=== PATIENT | male | born 1970 | race Caucasian/White ===

== ENCOUNTER 2022-05-07 07:26 | Day surgery (SDC) | payer OTHER, SELFPAY ==
--- NOTE | 2022-05-07 07:32 | H&P.OPEN ---
HPI - General HPI Narrative FREYA CRUZ, is a 52 M who presents for screening colonoscopy. Patient's never had a previous colonoscopy. Patient denies any family history of colon cancer. Patient's bowel moods daily denies any blood. Patient denies any chronic abdominal pain/nausea/vomiting/reflux. States he has had some abdominal pain 2 episodes 1 after the fair and 1 after having pizza. However he states he took a couple Prilosec and that improved after he was having pain for about a week. Patient states the pain may have little bit lower in the abdomen. Denies diarrhea with this. [facility] Medical History (Updated 05/02/22 @ 14:33 by Ella Isaac) Alcohol use Former smoker Gastric reflux Hyperlipidemia, unspecified Injury of head and neck Marijuana use Wears glasses Home Medications omeprazole 20 mg capsule,delayed release 20 mg PO DAILY 05/07/22 [History Last Taken Unknown] Allergy/AdvReac Type Severity Reaction Status Date / Time Penicillins Allergy PT UNSURE Verified 05/07/22 07:43 OF REACTION Family History (Updated 03/20/22 @ 12:59 by Belgica Flower) Mother CVA (cerebral vascular accident) Father Lung cancer Surgical History (Updated 05/02/22 @ 14:33 by Ella Isaac) No history of previous surgery Social History Smoking Status: Former smoker Past Medical/Surgical History Planned Operation Planned Operative Procedure/s: CSCOPE OA Previous Hospitalizations/Surgeries HX Hospitalizations: No Any Problems With Anesthesia: No You/Your Family Experience Fever (Hyperthermia) With Anes: No Cholinesterase deficiency: No Cardiovascular Hx Hypertension: No Respiratory Hx Sleep Apnea: No Hx Respiratory Tract Infection/Cold (presently): No Do You Snore Loudly (louder than talking or can be heard): No Do You Often Feel Tired/ Fatigued/ Sleepy Dring Daytime?: No Has Anyone Observed You Stop Breathing During Sleep?: No Result (for STOP score): Negative Smoking Status: Former smoker Neurological Does patient have nerve stimulator: No Reproduction : No Allergies Penicillins Allergy (Verified 05/07/22 07:43) PT UNSURE OF REACTION Discharge Is Pt Admitted From a Usp, or a Longterm: No After D/C, Where Do you Plan to Go: Return Home Physical Exam Const alert, oriented x3 and no apparent distress HEENT normocephalic and head/scalp atraumatic Resp normal respiratory effort Cardio regular rate GI soft to palpation and non-tender; Negative for non-distended Palpation: Negative for guarding Extremity no clubbing, cyanosis or edema Neuro CN's II-XII intact bilaterally Psych mental status grossly normal Assessment & Plan Assessment/Plan (1) Encounter for screening for malignant neoplasm of colon: Surgery Risks - Colonoscopy Risks Include but are not Limited To: Risks include but are not limited to: Bleeding, perforation requiring further surgery, inability to complete colonoscopy requiring barium enema.
[2022-05-07] MEDS: Lactated Ringers 1,000 ML 15 ML IV (07:35)
[2022-05-07 07:51] VITALS: BP 159/96; PULSE 95; RESP 18; TEMP 36.8; O2SAT 99; BMI 22.8
--- NOTE | 2022-05-07 08:45 | COLBX_PTH ---
PATIENT: FREYA CRUZ LOC: [facility] U#:[id number] AGE/SX: 52/M ROOM: RE05/07/[address]: Dr. Sihra Echeverria MD : 1970 BED: DIS: 05/07/2022 SPEC #: [id number] RECD: 05/07/22 10:50 STATUS: FERCHO HOWARD #: [id number] SUJATA: 05/07/22 08:[address]: Shira Echeverria DEPT: SURGICAL PATHOLOGY RECD BY: Nano Weinstein ENTERED: 05/07/22 11:45 SP TYPE: COLON BX OT DR: Dr. Mago Kahn, DO Tissues: Rectum, NOS Procedures: Surgery Specimen Level IV HEADER OPERATION: Colonoscopy ? open access (MAC) PRE-OP DIAGNOSIS: Screening TISSUE SUBMITTED: Rectal polyp biopsy MICROSCOPIC DIAGNOSIS Rectal polyp, biopsy: Fragments of tubular adenoma. SJ:juanita 05/08/2022 MICROSCOPIC DESCRIPTION Slides are reviewed. GROSS DESCRIPTION Received in fixative is one container labeled with the patient's name and designated rectal polyp. The specimen consists of multiple irregular fragments of light vela soft tissue that in aggregate measure 0.7 x 0.6 x 0.1 cm. The specimen is totally submitted in one cassette. / AM:juanita 05/07/2022 TC:1 CPT: 43935
[2022-05-07 09:00] VITALS: BP 132/68; BP 159/96; PULSE 82; RESP 16; TEMP 36.2; O2SAT 100
[2022-05-07 09:05] VITALS: BP 159/96; BP 167/96; PULSE 80; RESP 16; O2SAT 100
--- NOTE | 2022-05-07 09:06 | OP.COLON_ITS ---
Patient Name: Александр Reyes Procedure Date: 05/07/2022 8:28 AM Date of : 1970 Age: 52 Procedure: Colonoscopy Indications: Screening for colorectal malignant neoplasm Providers: Shira Echeverria MD Referring MD: Shira Echeverria MD Medicines: Monitored Anesthesia Care Patient Profile: This is a 52 year old male. Last Colonoscopy: none. The patient's first colonoscopy is today. Complications: No immediate complications. Procedure: Pre-Anesthesia Assessment: - Prior to the procedure, a History and Physical was performed, and patient medications and allergies were reviewed. The patient's tolerance of previous anesthesia was also reviewed. The risks and benefits of the procedure and the sedation options and risks were discussed with the patient. All questions were answered, and informed consent was obtained. Prior Anticoagulants: The patient has taken no previous anticoagulant or antiplatelet agents. ASA Grade Assessment: Per anesthesia. After reviewing the risks and benefits, the patient was deemed in satisfactory condition to undergo the procedure. After I obtained informed consent, the scope was passed under direct vision. Throughout the procedure, the patient's blood pressure, pulse, and oxygen saturations were monitored continuously. The Colonoscope was introduced through the anus and advanced to the cecum, identified by appendiceal orifice and ileocecal valve. The colonoscopy was performed without difficulty. The patient tolerated the procedure well. The quality of the bowel preparation was good. Scope In: 8:34:38 AM Scope Withdrawal Time 0 hours 13 minutes 30 seconds Scope Out: 8:55:24 AM Total Procedure Duration Time 0 hours 20 minutes 46 seconds Findings: The perianal and digital rectal examinations were normal. Multiple small-mouthed diverticula were found in the sigmoid colon. A less than 5 mm polyp was found in the rectum. The polyp was sessile. The polyp was removed with a cold biopsy forceps. Resection and retrieval were complete. The exam was otherwise without abnormality on direct and retroflexion views. Impression: - Diverticulosis in the sigmoid colon. - One less than 5 mm polyp in the rectum, removed with a cold biopsy forceps. Resected and retrieved. - The examination was otherwise normal on direct and retroflexion views. Recommendation: - Discharge patient to home. - High fiber diet. - Continue present medications. - Await pathology results. - Repeat colonoscopy in 5-10 years for surveillance based on pathology results. Procedure Code(s): --- Professional --- 47355, PT, Colonoscopy, flexible; with biopsy, single or multiple Diagnosis Code(s): --- Professional --- Z12.11, Encounter for screening for malignant neoplasm of colon K62.1, Rectal polyp K57.30, Diverticulosis of large intestine without perforation or abscess without bleeding CPT copyright 2017 [employer]. All rights reserved. The codes documented in this report are preliminary and upon school age lead teacher review may be revised to meet current compliance requirements. MD Shira Ivey MD 05/07/2022 9:05:55 AM This report has been signed electronically. Number of Addenda: 0 Note Initiated On: 05/07/2022 8:28 AM
--- NOTE | 2022-05-07 09:08 | OP.CCLET_ITS ---
05/07/2022 Mago Kahn [address] [place] [address] Re : Colonoscopy procedure for Александр Reyes Dear Dr. Kahn This procedure was performed on Saturday, May 07, 2022. My impressions and recommendations are as follows: Impressions : - Diverticulosis in the sigmoid colon. - One less than 5 mm polyp in the rectum, removed with a cold biopsy forceps. Resected and retrieved. - The examination was otherwise normal on direct and retroflexion views. Recommendations : - Discharge patient to home. - High fiber diet. - Continue present medications. - Await pathology results. - Repeat colonoscopy in 5-10 years for surveillance based on pathology results. My findings are described in the full procedure note, which is enclosed. If I can be of further assistance, please feel free to contact me at Doctor phone number(s): , Work: . Sincerely, MD Shira Ivey MD 05/07/2022 9:05:55 AM This report has been signed electronically.
[2022-05-07 09:10] VITALS: BP 153/93; BP 159/96; PULSE 83; RESP 16; O2SAT 100
[2022-05-07 09:15] VITALS: BP 153/93; BP 159/96; PULSE 74; RESP 16; TEMP 36.4; O2SAT 100
[2022-05-07 09:37] VITALS: BP 159/96
== END 2022-05-07 09:39 | disposition home or self-care (01) ==
LOC: EN 07:28 → AC 07:30
PROVIDERS: PCP Internal Medicine; Referring Provider Surgery; Visit Provider Surgery
PROC: 0DJD8ZZ Inspection of Lower Intestinal Tract, Via Natural or Artificial Opening Endoscopic (ICD-10-PCS; CPT 45378; principal; 2022-05-07 08:40)
DX: Z12.11 Encounter for screening for malignant neoplasm of colon (principal); D12.8 Benign neoplasm of rectum; K57.30 Diverticulosis of large intestine without perforation or abscess without bleeding; E78.5 Hyperlipidemia, unspecified; K21.9 Gastro-esophageal reflux disease without esophagitis; F12.90 Cannabis use, unspecified, uncomplicated; Z79.899 Other long term (current) drug therapy; Z87.891 Personal history of nicotine dependence
CPT/HCPCS: 45380; 88305; J7120; J2405

== ENCOUNTER → 2022-09-05 | Outpatient (CLI) | payer OTHER, SELFPAY ==
[2022-09-05 07:46] LABS: Troponin-I HS 5 pg/mL (3.0-78.0)
== END | disposition home or self-care (01) ==
LOC: LABSPEC 07:11 → LAB 07:12
PROVIDERS: PCP Internal Medicine; Referring Provider Internal Medicine; Visit Provider Internal Medicine
DX: R07.89 Other chest pain (principal)
CPT/HCPCS: 36415; 84484

== ENCOUNTER → 2022-09-25 | Outpatient (CLI) | payer OTHER, SELFPAY ==
--- NOTE | 2022-09-25 06:56 | ECHOD_ITS ---
Reason For Study: CHEST PAIN Procedure This was a 2D Doppler, Color Flow transthoracic echocardiogram. Exam performed in department. Left Ventricle Normal LV size. The estimated ejection fraction is 65 %. No evidence for diastolic dysfunction. No regional wall motion abnormalities noted. Right Ventricle Normal RV size. Normal systolic function. Atria Normal left atrium. Normal right atrium. No doppler evidence for ASD. Mitral Valve There is no mitral valve stenosis. No mitral valve insufficiency. Tricuspid Valve There is no tricuspid stenosis. Unable to estimate RV systolic pressure due to inadequate jet, pulmonary artery pressure probably normal. Aortic Valve Trisinus/trileaflet aortic valve. There is no aortic stenosis. No aortic valve insufficiency. Pulmonic Valve There is no pulmonic valvular stenosis. No pulmonic valve insufficiency. Great Vessels Normal aortic root. Pericardium/Pleural No pericardial effusion. MMode/2D Measurements & Calculations LVIDd: 4.7 cm IVSd: 0.85 cm Ao root diam: 4.0 cm LVIDs: 3.0 cm LVPWd: 0.87 cm RVDd: 3.9 cm FS: 36.8 % LAV(MOD-bp): 35.8 ml LVAd ap4: 30.2 cm2 LVAd ap2: 28.5 cm2 LAV(MOD-bp) Indexed: 19.2 ml/m2 LVLd ap4: 8.3 cm LVLd ap2: 8.0 cm LAV(MOD-sp2): 32.4 ml EDV(MOD-sp4): 90.2 ml EDV(MOD-sp2): 84.3 ml LAV(MOD-sp4): 34.7 ml EDV(sp4-el): 93.6 ml EDV(sp2-el): 85.8 ml LVAs ap4: 18.1 cm2 LVAs ap2: 15.7 cm2 LVLs ap4: 6.9 cm LVLs ap2: 6.2 cm ESV(MOD-sp4): 40.9 ml ESV(MOD-sp2): 33.9 ml ESV(sp4-el): 40.5 ml ESV(sp2-el): 33.9 ml EF(MOD-sp4): 54.7 % EF(MOD-sp2): 59.8 % EF(sp4-el): 56.7 % SV(MOD-sp4): 49.3 ml SV(MOD-sp2): 50.4 ml SV(sp4-el): 53.0 ml LA dimension(2D): 4.3 cm LA A4 area: 13.3 cm2 RA A4 area: 13.4 cm2 Time Measurements MV dec time: 0.22 sec Doppler Measurements & Calculations MV E max leonard: 58.9 cm/sec Lat Peak E' Leonard: 7.3 cm/sec Med Peak E' Leonard: 9.3 cm/sec MV A max leonard: 67.1 cm/sec E/E' lat: 8.0 E/E' med: 6.3 MV E/A: 0.88 Ao V2 max: 101.9 cm/sec LV V1 max: 86.1 cm/sec PA V2 max: 81.9 cm/sec Ao max P.2 mmHg LV V1 max P.0 mmHg Ao V2 mean: 73.2 cm/sec LV V1 mean P.6 mmHg Ao mean P.4 mmHg LV V1 mean: 59.4 cm/sec Ao V2 VTI: 21.5 cm LV V1 VTI: 16.7 cm AV (velocity ratio): 0.78 TR max leonard: 224.9 cm/sec TR max P.2 mmHg ECHO/Echo Complete Interpretation Summary The estimated ejection fraction is 65 %. No evidence for diastolic dysfunction. Ordering Physician: Mago Kahn Referring Physician: Mago Kahn Performed By: Sherie Myles RDCS, RVT
--- NOTE | 2022-09-29 16:43 | STRESSREP ---
Stress Test Report Date: 09/25/2022 Procedure: Exercise tolerance test/imaging study Indications: Chest pain Consent: Per the patient Procedure: The patient exercised on a Tino protocol for 10 minutes achieving a peak heart rate of 166 bpm (98% predicted maximal heart rate) with a peak blood pressure 160/70 mmHg and a peak MET capacity of 13.4 METs. The baseline ECG demonstrated normal sinus rhythm. The peak exercise ECG demonstrated no significant ischemic changes. EKG during recovery revealed no significant ischemic changes [There were no cardiac dysrhythmias pretest, during exercise, or recovery]. The functional capacity was considered normal for age. There was [no complaint of chest discomfort during exercise or recovery]. The examination was discontinued secondary to achieving target heart rate, mild shortness of breath. Impression: 1. Technically adequate (percent predicted maximal heart rate greater than 85%) exercise tolerance test 2. Stress test is negative for exercise-induced EKG changes of ischemia 3. The test test is negative for exercise-induced chest pain 4. Functional capacity is normal for age 5. Nuclear images pending Myocardial perfusion imaging study: Technique: The patient was injected with 11 mCi of technetium 99m Cardiolite and subsequently rest SPECT Cardiolite nuclear imaging was obtained in the horizontal long, vertical long, and short axis views. The patient exercised on a Tino protocol. Please see above for details. The patient was injected with 31.9 mCi of technetium 99m Cardiolite and subsequently stress SPECT Cardiolite nuclear imaging was obtained in the horizontal long, vertical long, and short axis views. A gated Cardiolite study at peak stress was obtained. Interpretation: Rest and stress SPECT Cardiolite nuclear imaging status post realignment, normalization, and attenuation correction, demonstrates normal myocardial radioisotope uptake. The gated Cardiolite study demonstrates no significant regional wall motion abnormalities. The reported LVEF is 62%. Impression: 1. There is no evidence of significant ischemia or infarction. 2. The gated Cardiolite study reports an LVEF of 62%. This note was generated with [employer] software. It may contain incorrect words, spelling, and punctuation that were not noted in checking the note before signing.
== END | disposition home or self-care (01) ==
PROVIDERS: PCP Internal Medicine; Referring Provider Internal Medicine; Visit Provider Internal Medicine
DX: R07.89 Other chest pain (principal)
CPT/HCPCS: 78452; 93017; 93306; A9500; A4216

== ENCOUNTER 2023-02-03 13:10 | Observation (INO) | payer OTHER, SELFPAY ==
[2023-02-03] VITALS (9 sets, daily range): BP systolic 149–174; BP diastolic 83–102; PULSE 88–124; RESP 15–18; TEMP 36.7–37; O2SAT 96–99; BMI 22.8; BMI 21.7
--- NOTE | 2023-02-03 13:26 | NURSING ---
STROKE CALLED [id number]
--- NOTE | 2023-02-03 13:28 | RAD_ITS ---
STUDY: X-RAY CHEST REASON FOR EXAM: Male, 52 years old. Neuro deficit, acute, stroke suspected TECHNIQUE: Single AP portable view of the chest. COMPARISON: None. FINDINGS: EKG electrodes are seen. The lungs are clear and expanded. There is no demonstrated pleural abnormality. Normal size heart. Normal mediastinum and j luis. Normal visualized pulmonary arteries. Normal visualized aortic arch and descending thoracic aorta. Normal visualized thoracic spine. Normal visualized ribs, clavicles, and shoulders. There is no demonstrated abnormality of the visualized soft tissue structures of the upper abdomen. RAD/Chest 1 View IMPRESSION: Normal x-ray examination of the chest. Electronically Signed: Jasiel Davenport MD at 14:25 EDT ,
--- NOTE | 2023-02-03 13:28 | CT_ITS ---
STUDY: CTA HEAD AND NECK WITH CONTRAST REASON FOR EXAM: Male, 52 years old. Neuro deficit, acute, stroke suspected RADIATION DOSAGE (If Supplied By Facility): CTDIvol = ( 22.00 ) mGy, DLP = ( 810.15 ) mGycm TECHNIQUE: CT angiography was performed with a multi-detector CT scanner. Data acquisition was obtained from the skull base through the vertex following intravenous administration of IV 100mL Isovue-370. MIP images were reconstructed from the axial data set. Post-processing of the angiographic images was performed, with multiplanar reformation and 3D reconstruction. Individualized dose optimization techniques were used for this CT. COMPARISON: No relevant priors. FINDINGS: Normal bilateral petrous carotid arteries. There is calcified plaque formation of the right cavernous carotid artery, without a cross-sectional luminal stenosis. There is calcified plaque formation of the left cavernous carotid artery, without a cross-sectional luminal stenosis. Normal right A1 segments of the anterior cerebral artery. Normal left A1 segments of the anterior cerebral artery. Normal intact anterior communicating artery (ACOM). Normal bilateral A2 segments of the anterior cerebral arteries. Normal right M1 and M2 segments of the middle cerebral arteries, with a normal M1 bifurcation. Normal left M1 and M2 segments of the middle cerebral arteries, with a normal M1 bifurcation. Normal right posterior communicating artery (PCOM). Normal left posterior communicating artery (PCOM). Normal bilateral vertebral arteries. Normal basilar artery with a normal basilar bifurcation. The visualized bilateral superior cerebellar (SCA) arteries are normal. Normal bilateral P1, P2 and visualized P3 segments of the posterior cerebral arteries. There is no demonstrated aneurysm of the [place] of [place]. There is no demonstrated abnormality of the visualized brain. AORTIC ARCH: There is atherosclerotic calcific plaque formation of the aortic arch and great vessels arising from the aortic arch, without a hemodynamically significant stenosis. There is a normal origin of the brachiocephalic, left common carotid, and left subclavian arteries. Nonstenotic calcific plaque at the origin of the left subclavian artery. RIGHT CAROTID ARTERIES: Normal right common carotid artery (CCA). Normal right common carotid bulb. There is mild atherosclerotic plaque formation of the origin of the right internal carotid artery with less than 50% cross sectional diameter stenosis. Normal visualized cervical portion of the right internal carotid artery. Normal origin of the right external carotid artery (ECA). LEFT CAROTID ARTERIES: Normal left common carotid artery (CCA). Normal left common carotid bulb. Normal origin of the left internal carotid (ICA) artery without a hemodynamically significant stenosis. Normal visualized cervical portion of the left internal carotid artery. Normal origin of the left external carotid artery (ECA). VERTEBRAL ARTERIES: Normal bilateral vertebral arteries. CT/STROKE CTA Head AND Neck W/Con IMPRESSION: Mild calcific plaque at the origin of the right internal carotid artery. N.B. : The above Results were Read Back by Jasiel Davenport MD to Dr Handy Tarango DO, and understanding confirmed on 02/03/2023 13:59:40 (ET). Electronically Signed: Jasiel Davenport MD at 14:01 EDT ,
--- NOTE | 2023-02-03 13:28 | CT_ITS ---
STUDY: CT HEAD STROKE PROTOCOL W/O CONTRAST INJECTION REASON FOR EXAM: Male, 52 years old. Neuro deficit, acute, stroke suspected RADIATION DOSAGE (If Supplied By Facility): CTDIvol = ( 44.99 ) mGy, DLP = ( 846.73 ) mGycm TECHNIQUE: Transaxial CT imaging of the brain was performed without administration of intravenous contrast material. Individualized dose optimization techniques were used for this CT. COMPARISON: No relevant priors. FINDINGS: Normal soft tissue structures. Normal calvarium. Normal size ventricles and extra-axial spaces for the patient''s age. Normal white matter tracts of the cerebral hemispheres. Normal basal ganglia and thalami. Normal brainstem. Normal cerebellum. There is no intracranial hemorrhage. There are no findings of an acute ischemic infarction. Minimal degree of mucosal thickening of the maxillary sinuses. ASPECT score: 10 CT/STROKE Brain/Head without Cont IMPRESSION: Normal unenhanced CT scan of the brain. N.B. : The above Results were Read Back by Jasiel Davenport MD to Gem Guerra and understanding confirmed on 02/03/2023 13:48:17 (ET). Electronically Signed: Jasiel Davenport MD at 13:49 EDT ,
--- NOTE | 2023-02-03 13:29 | EDS_ITS ---
HPI History of Present Illness Chief Complaint: Neuro S/Sx Detail of Chief Complaint: Paresthesias Informant: patient Narrative Narrative: Patient presents to the emergency department with complaint of paresthesia to the right side of the face and right arm that started approximately 10:30 AM today. Patient denies weakness. He does not have involvement of the right lower extremity. He denies visual changes. Patient states that he has had similar episodes for the last 5 days off and on that usually only last a few minutes but this is the longest that it is lasted. Patient does drink alcohol daily. He tells me that he had a severe headache 2 weeks ago that lasted a couple weeks but currently denies headache. Denies significant fall or head injury. He is not on blood thinners. [facility] Medical History (Updated 02/03/23 @ 14:[address] Gem Guerra, ) Alcohol use Former smoker Gastric reflux Hyperlipidemia, unspecified Injury of head and neck Marijuana use Wears glasses Home Medications omeprazole 20 mg capsule,delayed release 20 mg PO DAILY PRN heartburn 05/07/22 [History Last Taken Unknown] Allergy/AdvReac Type Severity Reaction Status Date / Time Penicillins Allergy PT UNSURE Verified 02/03/23 14:30 OF REACTION Family History (Updated 03/20/22 @ 12:59 by Belgica Flower) Mother CVA (cerebral vascular accident) Father Lung cancer Surgical History No history of previous surgery Social History Smoking Status: Former smoker ROS ROS ED Review of Systems ROS Unobtainable: other Constitutional Constitutional ED: Reports lethargy; Denies chills, fever(s), sweats or weight loss Eyes Eyes: Denies blurry vision, change in vision or diplopia ENT ENT ED: Denies rhinorrhea or sore throat Cardiovascular Cardiovascular: Denies chest pain, orthopnea or racing heartbeat Respiratory/Chest Respiratory/Chest: Denies cough, dyspnea, dyspnea on exertion, orthopnea or sputum Gastrointestinal Gastrointestinal: Denies abdominal pain, diarrhea, nausea or vomiting Genitourinary Genitourinary ED: Denies dysuria, hematuria or urinary frequency Musculoskeletal Musculoskeletal: Denies arthralgias, back pain, myalgias or neck pain Integumentary Denies abscess, Abrasions or rash Neurologic Neurologic: Reports paresthesias; Denies headache(s) or weakness Psychiatric Psychiatric: Denies anxiety, depression or suicidal thoughts Endocrine Endocrinology: Denies polydipsia, polyphagia or polyuria Hematologic/Lymphatic Hematologic/Lymphatic: Denies easy bleeding, easy bruising or lymphadenopathy Allergic/Immunologic Allergic/Immunologic ED: Denies mouth swelling, tongue swelling or urticaria EXAM Physical Exam Const Vital Signs: 02/03/23 13:11 02/03/23 13:17 02/03/23 13:35 Temperature 98.5 F Temperature Source Temporal Pulse Rate 124 H 120 H Respiratory Rate 18 18 Blood Pressure 164/102 H 167/99 H Blood Pressure Mean 122 121 Pulse Ox 98 98 Oxygen Delivery Method Room Air Room Air Room Air 02/03/23 13:58 02/03/23 14:13 Temperature 98.5 F Temperature Source Temporal Pulse Rate 105 H 105 H Respiratory Rate 15 17 Blood Pressure 167/91 H 149/93 H Blood Pressure Mean 116 111 Pulse Ox 98 97 Oxygen Delivery Method Room Air Room Air Positive well nourished and well developed General Appearance ED: well developed and NAD HEENT Reports TM's clear and moist mucous membranes normocephalic and atraumatic; Negative for trauma or tenderness Tympanic Membrane ED: Yes TM's clear Eyes PERRL and EOMs intact bilaterally General Eye ED: Negative for pale conjunctiva or scleral icterus Neck no lymphadenopathy, supple and no JVD General: Negative for tenderness Chest Wall inspection of chest normal and palpation of chest normal Chest: Negative for tenderness Resp normal respiratory effort and clear to auscultation bilaterally Effort and Inspection: Negative for respiratory distress or pain with movement Auscultation: Negative for rhonchi, wheezes or diminished lung sounds Cardio regular rate, regular rhythm, S1 normal heart sound, S2 normal heart sound and no murmurs Peripheral Pulses: pulses 2+ throughout GI normal to inspection, nondistended, normoactive bowel sounds, soft to palpation, non-tender, non-distended and no masses Back/Spine no CVA tenderness and no thoracic nor lumbar tenderness Extremity normal to inspection General Extremety ED: Negative for edema General Extremity: Negative for edema Neuro oriented x3, CN's II-XII intact bilaterally, no sensory deficits noted and gait normal Neuro Narrative: Patient with paresthesias to the right arm and face and an NIH stroke scale of 1. There is no focal weakness. There is no facial droop. Sensorium / Orientation: awake, alert, oriented to person, oriented to place and oriented to time Motor Exam: strength 5/5 throughout and strength abnormal Psych mental status grossly normal Skin no rashes or lesions noted and no wounds MDM MDM MDM Narrative Medical decision making narrative: Patient presents with paresthesias involving the right face and right arm. Concern for possible stroke. Patient's had similar paresthesias over the course of the last 5 days have been short-lived. He is also recently had severe headache. Concern for stroke versus complex migraine versus intracranial hemorrhage versus electrolyte abnormality or other etiology. Stroke team was called. Patient was evaluated by stroke neurologist and on their evaluation his paresthesias of his arm had resolved but now was having return of the paresthesias to his face. Recommended discussing with patient giving thrombolytics for stroke. I discussed this with the patient and his the fact that the symptoms are coming and going could possibly be indicative of a stroke however an MRI would be a better test to definitively evaluate. Patient understands risk of bleeding relating to giving thrombolytics 6% potentially that could be fatal. Given that he has waxing and waning of paresthesias sherri ent did not want to proceed with thrombolytics and we shared medical decision making regarding this with his and myself. Patient sodium was noted to be low at 128. Chemistries otherwise were unremarkable. Case will be discussed with hospitalist to evaluate patient for admission as he will require further workup including MRI of the brain. Patient CTA of head and neck essentially showed just mild plaque formation at the origin of the right internal carotid artery. Lab Data Labs: Laboratory Results - last 24 hr 02/03/23 13:25 WBC 5.4 RBC 4.45 L Hgb 14.2 Hct 39.2 L MCV 88.1 MCH 31.9 MCHC 36.2 H RDW Std Deviation 38.2 RDW Coeff of [place] 11.8 Plt Count 363 MPV 7.8 Immature Gran % (Auto) 0.200 Neut % (Auto) 67.8 Lymph % (Auto) 20.9 [place] % (Auto) 9.3 Eos % (Auto) 1.1 Baso % (Auto) 0.7 Absolute Neuts (auto) 3.6 Absolute Lymphs (auto) 1.12 Nucleated RBC % 0 PT 13.8 INR 1.1 APTT 26.1 Sodium 128 L Potassium 4.2 Chloride 93 L Carbon Dioxide 27.0 Anion Gap 8 BUN 5 L Creatinine 0.90 Estim Creat Clear Calc 96.50 Est GFR (MDRD) Af Amer 113 Est GFR (MDRD) Non-Af 94 BUN/Creatinine Ratio 5.5 L Glucose 168 H Calcium 9.0 Troponin I High Sens 4 Ethyl Alcohol < 3.0 Radiography Diagnostic Testing: Clinical Impression(s) from Imaging Studies Brain CT 02/03/23 13:28 IMPRESSION: Normal unenhanced CT scan of the brain. N.B. : The above Results were Read Back by Jasiel Davenport MD to Gem Guerra and understanding confirmed on 02/03/2023 13:48:17 (ET). Electronically Signed: Jasiel Davenport MD at 13:49 EDT , ADDENDUM: 02/03/23 1356 IMPRESSION: Normal unenhanced CT scan of the brain. N.B. : The above Results were Read Back by Jasiel Davenport MD to Gem Guerra and understanding confirmed on 02/03/2023 13:48:17 (ET). Electronically Signed: Jasiel Davenport MD at 13:49 EDT , Chest X-Ray 02/03/23 13:28 IMPRESSION: Normal x-ray examination of the chest. Electronically Signed: Jasiel Davenoprt MD at 14:25 EDT , Head/Neck CTA 02/03/23 13:28 IMPRESSION: Mild calcific plaque at the origin of the right internal carotid artery. N.B. : The above Results were Read Back by Jasiel Davenport MD to Dr Handy Tarango DO, and understanding confirmed on 02/03/2023 13:59:40 (ET). Electronically Signed: Jasiel Davenport MD at 14:01 EDT , ADDENDUM: 02/03/23 1407 IMPRESSION: Mild calcific plaque at the origin of the right internal carotid artery. N.B. : The above Results were Read Back by Jasiel Davenport MD to Dr Handy Tarango DO, and understanding confirmed on 02/03/2023 13:59:40 (ET). Electronically Signed: Jasiel Davenport MD at 14:01 EDT , 1 view chest x-ray obtained interpreted by myself as no evidence of infiltrate or pneumothorax or acute disease process. Radiology interpretation pending. EKG Initial EKG: Attestation: I personally reviewed and interpreted this EKG as follows: Comments: Sinus rhythm with a rate of 118 bpm with no acute ST segment changes Discharge Plan Dx/Rx/DC Orders Clinical Impression: Paresthesias, Tachycardia, Hypertension, Acute hyponatremia Disposition Disposition: Acute Care Hospital [facility] Discharge Date/Time: 02/03/23 14:40
[2023-02-03 13:37] LABS: Absolute Lymphocyte Count 1.12 X10^3/uL (0.83-4.51); Absolute Neutrophil Count 3.6 X10^3/uL (2.0-7.7); Basophil# 0.04 X10^3/uL; Basophil% 0.7 % (0-1); Eosinophil# 0.06 X10^3/uL; Eosinophils% 1.1 % (0-5); Hematocrit 39.2 % (40-54); Hemoglobin 14.2 g/dL (13.0-16.5); Lymphocyte # 1.12 X10^3/ul (0.83-4.51); Lymphocyte % 20.9 % (19-41); Mean Corp Hgb Conc 36.2 g/dL (32-36); Mean Corpuscular Hgb 31.9 pg (27.0-32.0); Mean Corpuscular Volume 88.1 fL (80-94); Mean Platelet Vol. 7.8 fl (6.2-12.0); Monocyte% 9.3 % (0-10); NRBC Flagged by Analyzer 0 % (0-5); Neutrophil # 3.63 X10^3/uL (2.7-7.7); Neutrophil % 67.8 % (47-70); Platelet Count 363 K/mm3 (150-450); RBC Distribution Width CV 11.8 % (11.6-14.6); RBC Distribution Width SD 38.2 fl (35.1-43.9); Red Blood Count 4.45 M/mm3 (4.6-6.2); White Blood Count 5.4 K/mm3 (4.4-11.0)
[2023-02-03 13:43] LABS: Partial Thromboplast Time 26.1 Seconds (24.1-36.2)
[2023-02-03] MEDS: 0.9% Normal Saline 1,000 ML 100 ML IV (13:45)
[2023-02-03 13:57] LABS: Anion Gap 8 (5-15); BUN 5 mg/dL (7-18); BUN/Creat Ratio 5.5 RATIO (10-20); Chloride 93 mmol/L (98-107); EST Glomerular Filtration Rate 94 mL/min (>60); Est Glom Filt Rate - Afr Amer 113 mL/min (>60); Glucose 168 mg/dL (74-106); Potassium 4.2 mmol/L (3.5-5.1); Sodium Level 128 mmol/L (136-145); Troponin-I HS 4 pg/mL (3.0-78.0)
[2023-02-03 14:00] LABS: Alcohol, Blood (Medical)-Serum < 3.0 mg/dL
--- NOTE | 2023-02-03 14:22 | CHAPLAIN ---
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 _x__ Other (describe below) Sacrament/Intervention _x__ Active listening ___ Anointing ___ Religion ___ Bereavement ___ Communion ___ Francoise exploration ___ ___ Life review ___ Prayer ___ Reconciliation ___ Sacrament of Sick _x__ Supportive presence ___ Wedding ___ Other (describe below) Pastoral Comments patient was in [place]; met with in the ED after the stroke alert was called; offered support and presence to spouse; spouse talks about losing her father just a couple days ago and the stress involved in the family; pt had not wanted to seek medical attention due to family issues but came in today; spouse is talking rapidly and explaining situation; gave calm presence and reassurance of good care; was present when patient returned to room; introduced self to pt and offered presence; pt is able to talk and state that he is fine at the moment; will follow up as necessary and will continue to be available
--- NOTE | 2023-02-03 14:24 | NURSING ---
114 OBS TERELETSKY PARESTHESIAS, HYPERTENSION, TACHYCARDIA
[2023-02-03 14:27] LABS: International Normalized Ratio 1.1; Prothrombin Time (Protime)PT. 13.8 SECONDS (11.7-14.9)
--- NOTE | 2023-02-03 15:16 | HP.PCM.HOS_ITS ---
HPI - General General Date of Admission: 02/03/23 Date of Service: 02/03/23 Chief Complaint: Right arm paresthesias, right facial paresthesias HPI Narrative FREYA CRUZ, is a 52 M who presents to the emergency room at [facility] with a history of several days of right facial numbness and tingling as well as right arm and right hand numbness and tingling which has waxed and waned. These episodes only lasted for few minutes and then they went away, today the symptoms have lasted for few hours. Patient denied any actual focal weakness, he denies any speech or vision abnormalities, he denies any right lower extremity tingling or numbness. A stroke team was called, patient underwent a CTA of the head and neck as well as a CT of the brain, there were no significant abnormalities detected, the patient's NIH score was 1. Discussions were carried out with teleneurology as to whether to give the patient tPA and it was decided that tPA was not indicated-patient did not feel that he wanted and the emergency room physician did not feel it was warranted and so the decision was made not to give it. Labs were obtained which showed a normal CBC, chemistry profile was abnormal for sodium of 128, chloride was 93, glucose was 168. Patient will be placed into observation status on PCU, MRI of the brain will be obtained, patient will be seen by PT and OT, echocardiogram will be obtained. Patient states that he intakes alcohol on a daily basis, he is vague about the amount of alcohol that he drinks-patient drinks beer-patient states he has never been through alcohol withdrawal or had any symptoms of alcohol withdrawal after refraining from drinking. I talked at length with the patient's who was in the room at the time my examination. [facility] Medical History (Updated 02/03/23 @ 14:[address] Gem Guerra, DO) Alcohol use Former smoker Gastric reflux Hyperlipidemia, unspecified Injury of head and neck Marijuana use Wears glasses Home Medications omeprazole 20 mg capsule,delayed release 20 mg PO DAILY PRN heartburn 05/07/22 [History Last Taken Unknown] Allergy/AdvReac Type Severity Reaction Status Date / Time Penicillins Allergy PT UNSURE Verified 02/03/23 14:30 OF REACTION Family History (Updated 03/20/22 @ 12:59 by Belgica Flower) Mother CVA (cerebral vascular accident) Father Lung cancer Surgical History No history of previous surgery Social History Smoking Status: Former smoker ROS Constitutional Constitutional: Denies anorexia, change in weight, chills, fatigue, fever(s), malaise, night sweats or weakness Eyes Eyes: Denies blurry vision, change in vision, discharge from eye(s) or eye pain Cardiovascular Cardiovascular: Denies chest pain, claudication, dyspnea on exertion, edema, lightheadedness or palpitations Respiratory/Chest Respiratory/Chest: Denies cough, hemoptysis, shortness of breath at rest or shortness of breath with exertion Gastrointestinal Gastrointestinal: Denies abdominal pain, constipation, diarrhea, hematemesis, hematochezia, melena, nausea or vomiting Genitourinary Genitourinary: Denies difficulty urinating, dysuria, hematuria, nocturia, urinary frequency, urinary hesitancy, urinary incontinence or urinary urgency Musculoskeletal Musculoskeletal: Denies back pain, joint pain, joint stiffness, joint swelling, myalgias or neck pain Neurologic Neurologic: Reports numbness, paresthesias and tingling; Denies abnormal gait, abnormal speech, dizziness, focal weakness, headache(s), loss of vision, other visual disturbances or syncope Psychiatric Psychiatric: Denies anxiety, cognitive impairment, depression, homicidal ideation, irritability, mood swings or suicidal ideation Endocrine Endocrinology: Denies change in body appearance, cold intolerance, excessive sweating, heat intolerance, polydipsia or polyuria Hematologic/Lymphatic Hematologic/Lymphatic: Denies none, anemia, easy bleeding, easy bruising or lymphadenopathy Allergic/Immunologic Allergic/Immunologic: Denies rhinitis, urticaria, eczemia or asthma Vital Signs Vital Signs Vital Signs: 02/03/23 13:11 02/03/23 13:17 02/03/23 13:35 Temperature 98.5 F Temperature Source Temporal Pulse Rate 124 H 120 H Respiratory Rate 18 18 Blood Pressure 164/102 H 167/99 H Blood Pressure Mean 122 121 Pulse Ox 98 98 Oxygen Delivery Method Room Air Room Air Room Air 02/03/23 13:58 02/03/23 14:13 Temperature 98.5 F Temperature Source Temporal Pulse Rate 105 H 105 H Respiratory Rate 15 17 Blood Pressure 167/91 H 149/93 H Blood Pressure Mean 116 111 Pulse Ox 98 97 Oxygen Delivery Method Room Air Room Air Weight Weight: 70.261 kg Body Mass Index (BMI) 22.8 Physical Exam Const alert, oriented x3, no apparent distress, average body habitus and healthy appearing General Appearance: cooperative, well kempt and well developed Orientation / Consciousness: awake, oriented to person, oriented to place and oriented to time HEENT normocephalic, head/scalp atraumatic, hearing grossly normal bilaterally and moist oral mucous membranes Eyes PERRL, EOMs intact bilaterally and conjunctivae normal Neck supple, no JVD, thyroid normal and no carotid bruits General: trachea midline Resp normal respiratory effort, no retractions, no use of accessory muscles and clear to auscultation bilaterally Auscultation: Negative for rales, rhonchi or wheezes Cardio regular rate, regular rhythm, S1 normal heart sound, S2 normal heart sound, no murmurs, no rub and no gallops GI normal to inspection, nondistended, normoactive bowel sounds, soft to palpation, non-tender and non-distended Extremity no clubbing, cyanosis or edema Skin no rashes or lesions noted General Skin Exam: no breakdown Neuro oriented x3, CN's II-XII intact bilaterally, moves all extremities, no focal motor deficits and no sensory deficits noted Sensorium / Orientation: awake and alert Speech: speech normal Psych affect normal Results Lab / Micro Data 02/03/23 13:25 02/03/23 13:25 Labs: Laboratory Results - last 24 hr 02/03/23 13:25: WBC 5.4, RBC 4.45 L, Hgb 14.2, Hct 39.2 L, MCV 88.1, MCH 31.9, MCHC 36.2 H, RDW Std Deviation 38.2, RDW Coeff of [place] 11.8, Plt Count 363, MPV 7.8, Immature Gran % (Auto) 0.200, Neut % (Auto) 67.8, Lymph % (Auto) 20.9, [place] % (Auto) 9.3, Eos % (Auto) 1.1, Baso % (Auto) 0.7, Absolute Neuts (auto) 3.6, Absolute Lymphs (auto) 1.12, Nucleated RBC % 0, PT 13.8, INR 1.1, APTT 26.1, Sodium 128 L, Potassium 4.2, Chloride 93 L, Carbon Dioxide 27.0, Anion Gap 8, BUN 5 L, Creatinine 0.90, Estim Creat Clear Calc 96.50, Est GFR (MDRD) Af Amer 113, Est GFR (MDRD) Non-Af 94, BUN/Creatinine Ratio 5.5 L, Glucose 168 H, Calcium 9.0, Troponin I High Sens 4, Ethyl Alcohol < 3.[address] 02/03/23 13:28 IMPRESSION: Normal unenhanced CT scan of the brain. N.B. : The above Results were Read Back by Jasiel Davenport MD to Gem Guerra and understanding confirmed on 02/03/2023 13:48:17 (ET). Electronically Signed: Jasiel Davenport MD at 13:49 EDT , ADDENDUM: 02/03/23 1356 IMPRESSION: Normal unenhanced CT scan of the brain. N.B. : The above Results were Read Back by Jasiel Davenport MD to Gem Guerra and understanding confirmed on 02/03/2023 13:48:17 (ET). Electronically Signed: Jasiel Davenport MD at 13:49 EDT , Chest X-Ray 02/03/23 13:28 IMPRESSION: Normal x-ray examination of the chest. Electronically Signed: Jasiel Davenport MD at 14:25 EDT , Head/Neck CTA 02/03/23 13:28 IMPRESSION: Mild calcific plaque at the origin of the right internal carotid artery. N.B. : The above Results were Read Back by Jasiel Davenport MD to Dr Handy Tarango DO, and understanding confirmed on 02/03/2023 13:59:40 (ET). Electronically Signed: Jasiel Davenport MD at 14:01 EDT , ADDENDUM: 02/03/23 1407 IMPRESSION: Mild calcific plaque at the origin of the right internal carotid artery. N.B. : The above Results were Read Back by Jasiel Davenport MD to Dr Handy Tarango DO, and understanding confirmed on 02/03/2023 13:59:40 (ET). Electronically Signed: Jasiel Davenport MD at 14:01 EDT , Assessment & Plan Assessment/Plan (1) Paresthesias: PLAN: Plan 1. Paresthesias of the right arm and right side of face-etiology unclear, patient states his right arm tingling and numbness for the most part has resolved at this point. Patient was placed in observation status on PCU, he will undergo an MRI, echocardiogram will be performed, patient will have a lipid profile ordered, he will be seen by PT and OT. #2 hyponatremia-etiology unclear, it is possible it could be from excessive beer drinking, BMP will be rechecked tomorrow #3 essential hypertension-patient states that he has a history of hypertension but was not placed on any medications, patient's blood pressure will be monitored, I choose at this time not to place the patient on any blood pressure medications #4 Daily alcohol intake-at this point the patient's and the patient are vague about the amount of alcohol the patient drinks but he does drink on a daily basis. Patient does not feel he needs as needed medication for anxiety or nervousness. Total clinical time spent by myself addressing the patient's medical issues, reviewing all of his data, and collaborating with patient's care team: 55 minutes Charges/Coding Visit Charges Inpatient E&M: 16093 Init Hosp L2
--- NOTE | 2023-02-03 15:37 | MRI_ITS ---
STUDY: MRI BRAIN WITHOUT CONTRAST REASON FOR EXAM: Male, 52 years old. Right arm and facial paresthesias TECHNIQUE: Standardized multiplanar fat and water weighted pulse sequences were obtained. COMPARISON: CTA brain February 03, 2023 FINDINGS: Normal size of the ventricles and extra-axial spaces for the patient''s age. There are a limited number of small white matter hyperintensities, distributed throughout the deep white matter tracts of the cerebral hemispheres, consistent with mild chronic white matter ischemic changes. Normal bilateral basal ganglia. Normal thalami. There is no extra-axial fluid accumulation. Normal flow voids within the major intracranial circulation suggesting patency by spin echo criteria. Normal sella turcica, pituitary gland, infundibular stalk, optic chiasm and hypothalamus. Normal tectal plate and pineal gland. Normal midbrain, trung and medulla. Normal cerebellum. Normal basal cisterns. Normal bilateral temporal bones. Normal bilateral internal auditory canals. No demonstrated orbital abnormality, within the constraints of a routine brain study. Normal visualized paranasal sinuses. Normal calvarium and skull base. Normal visualized soft tissue structures. Normal visualized upper cervical spine. MRI/Brain without Contrast IMPRESSION: Normal unenhanced MRI of the brain. Electronically Signed: Darron Azul MD at 22:10 EDT ,
--- NOTE | 2023-02-03 16:15 | ECHOD_ITS ---
Reason For Study: TIA/CVA Procedure This was a 2D Doppler, Color Flow transthoracic echocardiogram. Exam performed portable in patient room. Left Ventricle Normal LV size. The estimated ejection fraction is 60 %. Normal diastology for age. No regional wall motion abnormalities noted. Right Ventricle Normal RV size. Normal systolic function. Atria Normal left atrium. Normal right atrium. No doppler evidence for ASD. Mitral Valve There is no mitral valve stenosis. No mitral valve insufficiency. Tricuspid Valve There is no tricuspid stenosis. Unable to estimate RV systolic pressure due to insufficient tricuspid regurgitant envelope. Trivial tricuspid valve insufficiency. Aortic Valve Trisinus/trileaflet aortic valve. There is no aortic stenosis. No aortic valve insufficiency. Pulmonic Valve There is no pulmonic valvular stenosis. No pulmonic valve insufficiency. Great Vessels Normal aortic root. Pericardium/Pleural No pericardial effusion. MMode/2D Measurements & Calculations LVIDd: 4.9 cm IVSd: 0.78 cm LAV(MOD-bp): 50.5 ml LVIDs: 3.4 cm LVPWd: 1.0 cm LAV(MOD-bp) Indexed: 28.6 ml/m2 RVDd: 3.5 cm FS: 30.6 % LAV(MOD-sp2): 56.3 ml LAV(MOD-sp4): 37.4 ml SV(MOD-sp4): 48.3 ml SV(sp4-el): 50.4 ml LVAd ap4: 29.7 cm2 LVLd ap4: 8.4 cm EDV(MOD-sp4): 85.8 ml EDV(sp4-el): 89.2 ml LVAs ap4: 17.8 cm2 LVLs ap4: 7.0 cm ESV(MOD-sp4): 37.5 ml ESV(sp4-el): 38.8 ml EF(MOD-sp4): 56.3 % EF(sp4-el): 56.5 % LA A4 area: 14.7 cm2 LA dimension(2D): 3.2 cm RA A4 area: 17.9 cm2 TAPSE: 2.4 cm Time Measurements MV dec time: 0.20 sec Doppler Measurements & Calculations MV E max leonard: 58.2 cm/sec Lat Peak E' Leonard: 12.2 cm/sec Med Peak E' Leonard: 11.1 cm/sec MV A max leonard: 61.3 cm/sec E/E' lat: 4.8 E/E' med: 5.2 MV E/A: 0.95 MV V2 max: 70.9 cm/sec Ao V2 max: 121.4 cm/sec MV max P.0 mmHg MV dec slope: 290.2 cm/sec2 Ao max P.0 mmHg MV V2 mean: 45.9 cm/sec Ao V2 mean: 79.6 cm/sec MV mean P.97 mmHg Ao mean P.9 mmHg MV V2 VTI: 17.2 cm Ao V2 VTI: 24.3 cm AV (velocity ratio): 0.78 LV V1 max: 95.0 cm/sec PA V2 max: 87.2 cm/sec LV V1 max P.6 mmHg PA V2 mean: 64.5 cm/sec LV V1 mean P.9 mmHg LV V1 mean: 65.2 cm/sec LV V1 VTI: 19.0 cm ECHO/Echo Complete Interpretation Summary The estimated ejection fraction is 60 %. Normal diastology for age. Ordering Physician: Alexei Collins Referring Physician: Mago Kahn M.D. Performed By: Deysi Witt RCS
[2023-02-03 18:41] LABS: Cholesterol 224 mg/dL (200); High Density Lipoprotein 71 mg/dL; Triglycerides 133 mg/dL; Very Low Density Lipoprotein 27 mg/dL (5-40)
[2023-02-04] VITALS: BP 159/94; PULSE 76; RESP 18; TEMP 36.6; O2SAT 98
[2023-02-04 01:39] VITALS: BMI 21.7
[2023-02-04 01:40] VITALS: BMI 21.7
[2023-02-04 04:00] VITALS: BP 155/96; PULSE 72; RESP 16; TEMP 36.6; O2SAT 98
[2023-02-04 07:05] LABS: Anion Gap 5 (5-15); BUN 7 mg/dL (7-18); Calcium,Total 8.9 mg/dL (8.5-10.1); Chloride 99 mmol/L (98-107); EST Glomerular Filtration Rate 126 mL/min (>60); Est Glom Filt Rate - Afr Amer 153 mL/min (>60); Estimated Creatinine Clearance 114.25 ml/min; Glucose 111 mg/dL (74-106); Potassium 3.6 mmol/L (3.5-5.1); Sodium Level 132 mmol/L (136-145)
[2023-02-04 07:42] VITALS: BP 145/96; PULSE 67; RESP 18; TEMP 36.9; O2SAT 97
[2023-02-04] MEDS: Aspirin E.C. 81 MG Tablet PO (08:25)
--- NOTE | 2023-02-04 12:50 | PCM.DC.SUM ---
Providers Date of Admission: 02/03/23 Date of Discharge: 02/04/23 Primary Care Physician: Dr. Mago Kahn DO Reason For Visit: RIGHT ARM/HAND AND FACIAL PARASTHESIAS Diagnosis Discharge Diagnosis (1) Paresthesias: Status: Acute Code(s): R20.2 - Paresthesia of skin Medications at Discharge Home Medications omeprazole 20 mg capsule,delayed release 20 mg PO DAILY PRN heartburn 05/07/22 amlodipine 10 mg tablet 10 mg PO DAILY #30 tabs 02/04/23 aspirin 81 mg chewable tablet 81 mg PO DAILY #30 tabs 02/04/23 atorvastatin 40 mg tablet 40 mg PO DAILY #30 tabs 02/04/23 clopidogrel 75 mg tablet (Plavix) 75 mg PO DAILY #21 tabs 02/04/23 Hospital Course Operations None Procedures 2-D Echocardiogram Summary of Care Provided Minutes Spent on Discharge: 55 Hospital Course: Patient is a 52-year-old male with past medical history as outlined was admitted through the ED on 02/03/2023 with a complaint of right arm numbness and tingling as well as right facial numbness and tingling. He had been going on for about 4 days prior to admission. It waxed and waned but suddenly started persistent for longer periods. It lasted for several hours on the day of admission. He denied any focal weakness or speech or vision abnormalities or any difficulty with swallowing. He denied any similar symptoms in his lower extremities. Review of systems otherwise negative. NIH stroke scale was 1 in the ED. [facility] telestroke neurology reviewed patient's and did not think that he was a candidate for tPA so he did not receive tPA. He was admitted to rule out a stroke. CT of the brain was negative for any acute intracranial pathology. MRI of the brain also showed no evidence of a stroke. His symptoms resolved during admission and did not recur. He was therefore diagnosed with TIA. Neurology was consulted and agreed with the diagnosis of TIA. Per neurology, to put patient on aspirin and Plavix for 3 weeks and to continue with aspirin monotherapy. Patient was given a loading dose of Plavix 300 mg x 1. He was also placed on atorvastatin 40 mg nightly. His LDL was increased at 126 with total cholesterol of 224. Recommendation was therefore for patient to be on the high intensity statin for target LDL of less than 70. Neurology also recommended a 30-day event monitor and this was ordered to evaluate for any evidence of arrhythmia. He had a 2D echo which showed EF of 60% with normal diastolic for age. He had had an echo in August 2022 which also showed negative bubble study. He was discharged home on 02/04/2023 on p.o. aspirin 81 mg daily, p.o. Plavix 75 mg daily for 3 weeks as well as p.o. atorvastatin. He is follow-up with his primary care doctor and follow-up with neurology on outpatient basis as well. Patient seen and examined prior to discharge. is by his bedside. He had no active complaints and had an uneventful night. Review of systems otherwise negative. Labs and vitals reviewed. Home medication reviewed and reconciled. Physical Exam Const alert, oriented x3 and no apparent distress General Appearance: cooperative, comfortable and well developed Orientation / Consciousness: awake Exam Limitations: no limitations HEENT normocephalic, head/scalp atraumatic, hearing grossly normal bilaterally and moist oral mucous membranes Mouth: oral and palatal mucosa normal Eyes PERRL, EOMs intact bilaterally and conjunctivae normal Neck no lymphadenopathy and supple Resp normal respiratory effort, no retractions, no use of accessory muscles and clear to auscultation bilaterally Cardio regular rate, regular rhythm, S1 normal heart sound, S2 normal heart sound and no murmurs GI normal to inspection, nondistended, normoactive bowel sounds, soft to palpation, non-tender and non-distended Extremity normal to inspection, full ROM and no clubbing, cyanosis or edema Skin no rashes or lesions noted, no wounds, skin turgor normal and no jaundice Neuro oriented x3, CN's II-XII intact bilaterally, moves all extremities, no focal motor deficits and no sensory deficits noted Sensorium / Orientation: awake Motor Exam: strength 5/5 throughout Psych affect normal Weight / BMI Weight Weight: 142 lb 10.225 oz Body Mass Index (BMI) 21.7 ABG / Lab / Microbiology Data 02/03/23 13:25 02/04/23 05:37 Laboratory: Laboratory Results - last 24 hr 02/03/23 13:25: WBC 5.4, RBC 4.45 L, Hgb 14.2, Hct 39.2 L, MCV 88.1, MCH 31.9, MCHC 36.2 H, RDW Std Deviation 38.2, RDW Coeff of [place] 11.8, Plt Count 363, MPV 7.8, Immature Gran % (Auto) 0.200, Neut % (Auto) 67.8, Lymph % (Auto) 20.9, [place] % (Auto) 9.3, Eos % (Auto) 1.1, Baso % (Auto) 0.7, Absolute Neuts (auto) 3.6, Absolute Lymphs (auto) 1.12, Nucleated RBC % 0, PT 13.8, INR 1.1, APTT 26.1, Sodium 128 L, Potassium 4.2, Chloride 93 L, Carbon Dioxide 27.0, Anion Gap 8, BUN 5 L, Creatinine 0.90, Estim Creat Clear Calc 96.50, Est GFR (MDRD) Af Amer 113, Est GFR (MDRD) Non-Af 94, BUN/Creatinine Ratio 5.5 L, Glucose 168 H, Calcium 9.0, Troponin I High Sens 4, Triglycerides 133, Cholesterol 224 H, LDL Cholesterol 126, VLDL Cholesterol 27, HDL Cholesterol 71, Ethyl Alcohol < 3.0 02/04/23 05:37: Sodium 132 L, Potassium 3.6, Chloride 99, Carbon Dioxide 28.0, Anion Gap 5, BUN 7, Creatinine 0.70, Estim Creat Clear Calc 114.25, Est GFR (MDRD) Af Amer 153, Est GFR (MDRD) Non-Af 126, BUN/Creatinine Ratio 10.0, Glucose 111 H, Calcium 8.9 Radiography Diagnostic Testing: Radiology Impression Brain CT 02/03/23 13:28 IMPRESSION: Normal unenhanced CT scan of the brain. N.B. : The above Results were Read Back by Jasiel Davenport MD to Gem Guerra and understanding confirmed on 02/03/2023 13:48:17 (ET). Electronically Signed: Jasiel Davenport MD at 13:49 EDT , ADDENDUM: 02/03/23 [id number] IMPRESSION: Normal unenhanced CT scan of the brain. N.B. : The above Results were Read Back by Jaisel Davenport MD to Gem Guerra and understanding confirmed on 02/03/2023 13:48:17 (ET). Electronically Signed: Jasiel Davenport MD at 13:49 EDT , Chest X-Ray 02/03/23 13:28 IMPRESSION: Normal x-ray examination of the chest. Electronically Signed: Jasiel Davenport MD at 14:25 EDT , Head/Neck CTA 02/03/23 13:28 IMPRESSION: Mild calcific plaque at the origin of the right internal carotid artery. N.B. : The above Results were Read Back by Jasiel Davenport MD to Dr Handy Tarango DO, and understanding confirmed on 02/03/2023 13:59:40 (ET). Electronically Signed: Jasiel Davenport MD at 14:01 EDT , ADDENDUM: 02/03/23 1407 IMPRESSION: Mild calcific plaque at the origin of the right internal carotid artery. N.B. : The above Results were Read Back by Jasiel Davenport MD to Dr Handy Tarango DO, and understanding confirmed on 02/03/2023 13:59:40 (ET). Electronically Signed: Jasiel Davenport MD at 14:01 EDT , Brain MRI 02/03/23 15:37 IMPRESSION: Normal unenhanced MRI of the brain. Electronically Signed: Darron Azul MD at 22:10 EDT Reading Location ID and State: [facility] / [place] , Service support , Echocardiogram 02/03/23 16:15 Interpretation Summary The estimated ejection fraction is 60 %. Normal diastology for age. Ordering Physician: Alexei Collins Referring Physician: Mago Kahn M.D. Performed By: Deysi Witt RCS D/C Instructions Discharge Diet: Low fat / Low cholesterol Discharge Activity: Return to Normal Activity Weight Bearing Status: Weight bearing as tolerated Call your doctor if you observe: Fever of 101 or Higher, Shortness of breath, Dizziness, Swelling in the ankles and Chest pain Meaningful Use Info Meaningful Use Diagnoses (Choose all that apply): None applicable Discharge Plan Admission Admit Date/Time: 02/03/23 15:32 Primary Reason for Your Visit: TIA Attending Provider: Rupa Roberts Primary Care Provider: Mago Kahn Consulting Providers: Alexei Collins Instructions Patient Instructions: TIA Dc Discharge Orders/Prescriptions Prescriptions: New aspirin 81 mg tablet,chewable 81 mg PO DAILY Qty: 30 3RF clopidogrel [Plavix] 75 mg tablet 75 mg PO DAILY Qty: 21 0RF atorvastatin 40 mg tablet 40 mg PO DAILY Qty: 30 2RF amlodipine 10 mg tablet 10 mg PO DAILY Qty: 30 2RF Continued omeprazole 20 mg Capsule,Delayed Release(Dr/Ec) 20 mg PO DAILY PRN (Reason: heartburn) Other Ambulatory Orders: 30 Day Event Recorder Preventi (Urgent) Timeframe: 1 Day Facility: [facility] - Location: Cardiovascular Services Ordered By: Dr. Rupa Roberts Referrals / Follow Up: Mago Kahn DO [Primary Care Provider] - Within 1 Week Josh Shirley MD [Non-Staff -Ordering Privileges] - Within 2 Weeks (see to establish care for TIA) Disposition Disposition (needs filled in before D/C Order can be placed): Home, Self Care Charges/Coding Visit Charges Inpatient E&M: 15974 Disch Hosp >30min
[2023-02-04 13:08] VITALS: BMI 21.7
[2023-02-04 13:09] VITALS: BMI 21.7
--- NOTE | 2023-02-04 13:27 | CASEMGMT ---
Patient has order to discharge. RN CM in to discuss needs at discharge. Patient denies needs at discharge. Patient up independent in room. Patient had no further questions or concerns at this time.
[2023-02-04 13:37] VITALS: BP 150/91; PULSE 79; RESP 18; TEMP 36.9; O2SAT 97
[2023-02-04] MEDS: Clopidogrel Bisulfate 300 MG Tablet PO (13:41)
[2023-02-04 14:24] LABS: Bedside Glucose 176 mg/dL (74-106)
[2023-02-04 14:30] LABS: Hemoglobin A1c 5.2 % (3.8-5.6)
--- NOTE | 2023-02-04 15:05 | PHA.DC.MC.R ---
Pharmacy [facility] has performed discharge medication reconciliation and counseling for this patient. 1. AMLODIPINE 10MG PO DAILY 2. ASPIRIN 81MG PO DAILY 3. ATORVASTATIN 40MG PO QHS 4. CLOPIDOGREL 75MG PO DAILY X 21 DAYS The patient's discharge medication list was reviewed for discrepancies and discrepancies were resolved. The patient was counseled on the following discharge medications and changes in medications for homegoing were reviewed. The Reason for Use, instructions for use, and potential side effects were reviewed for all new medications. The patient's questions regarding all of their medications were answered. The patient was able to verbally demonstrate an understanding of their discharge medications. Patient counseled by pharmacy technician infusionAnn. Medications at Discharge Home Medications omeprazole 20 mg capsule,delayed release 20 mg PO DAILY PRN heartburn 05/07/22 amlodipine 10 mg tablet 10 mg PO DAILY #30 tabs 02/04/23 aspirin 81 mg chewable tablet 81 mg PO DAILY #30 tabs 02/04/23 atorvastatin 40 mg tablet 40 mg PO DAILY #30 tabs 02/04/23 clopidogrel 75 mg tablet (Plavix) 75 mg PO DAILY #21 tabs 02/04/23
== END 2023-02-04 12:48 | disposition home or self-care (01) ==
LOC: ED 14:16 → PCU 02-04 07:13
PROVIDERS: Admitting Provider Internal Medicine; Emergency Provider Emergency Medicine; PCP Internal Medicine; Visit Provider Student in an Organized Health Care Education/Training Program
DX: R20.2 Paresthesia of skin (principal); I65.21 Occlusion and stenosis of right carotid artery; I10 Essential (primary) hypertension; E78.5 Hyperlipidemia, unspecified; Z87.891 Personal history of nicotine dependence; E87.1 Hypo-osmolality and hyponatremia; Z79.899 Other long term (current) drug therapy; Z79.82 Long term (current) use of aspirin; Z79.02 Long term (current) use of antithrombotics/antiplatelets; K21.9 Gastro-esophageal reflux disease without esophagitis; F10.10 Alcohol abuse, uncomplicated
CPT/HCPCS: 36415; 70450; 70496; 70498; 70551; 71045; 80048; 80061; 82077; 82962; 83036; 84484; 85025; 85610; 85730; 93005; 93306; 96360; 96361; 99221; 99285; J7030; Q9967; A4216; G0378

== ENCOUNTER → 2023-08-06 | Outpatient (CLI) | payer OTHER, SELFPAY | END | disposition home or self-care (01) | LOC: SL 11:20 | PROVIDERS: PCP Internal Medicine; Visit Provider Psychiatry & Neurology Neurology | DX: G47.10 Hypersomnia, unspecified (principal) | CPT/HCPCS: 95806 ==

== ENCOUNTER → 2023-08-13 | Outpatient (CLI) | payer OTHER, SELFPAY ==
--- OUTSIDE RECORDS SUMMARY | 2023-08-13 07:06 | XMS RPT_ITS | CCD ---
Author Name Unknown Address [address] [place] [address] Organization [facility] Care Team Providers Care Physical Trainer Name Role Phone Mago Kahn Unavailable Maribell Miranda Unavailable Unavailable Linda Traore Unavailable Unavailable Unavailable Unavailable Mago Kahn Unavailable Maribell Miranda Unavailable Unavailable Gravius, Michaela Unavailable Unavailable Linda Traore Unavailable Unavailable Unavailable Unavailable Mago Kahn DO Unavailable Maribell Miranda RN Unavailable Unavailable Meli Quigley LPN Unavailable Unavailable Gravius SENIOR SQL SERVER DEVELOPER, Michaela Unavailable Unavailable Ciesa BEAN SPROUT GROWER, Berenice Unavailable Linda Traore RN Unavailable Unavailable Unavailable Unavailable Mago Kahn DO Unavailable Shira Echeverria Unavailable Samantha Mena MA Unavailable Unavailable Mago Kahn DO Attending Unavailable Mago Kahn DO Consulting Unavailable India Palomo MD [facility] Un[facility] Unavailable Unavailable Medications Current Medications Medication Drug Class(es) Dates Sig (Normalized) Sig (Original) aspirin 81 mg oral capsule (16 sources) Platelet Aggregation Inhibitor, Nonsteroidal Anti-inflammatory Drug Start: 03-06-2023 take 1 tablet by mouth once daily aspirin 81 mg oral capsule 1 (one) Tablet daily for 0 days Quantity: 30 {Tablet} Refills: 0 Ordered: 06-Mar-2023 Mago Kahn DO, DO, Kathleen Start : 06-Mar-2023 Active Completed/Discontinued Medications Medication Drug Class(es) Dates Sig (Normalized) Sig (Original) amLODIPine 10 mg oral tablet (3 sources) Dihydropyridine Calcium Channel Julee Start: 03-03-2023 take 1 tablet by mouth once daily amLODIPine 10 mg oral tablet 1 (one) tablet daily for 0 days Quantity: 30 {Tablet} Refills: 3 Ordered: 03-Mar-2023 CrissMago donaldson DO Criss DUNNMago Start : 03-Mar-2023 Active Problems Active Problems Problem Classification Problem Date Documented Date Episodic/Chronic Administrative/social admission (20 sources) Administrative reason for encounter; Translations: [Other general medical examination for administrative purposes] Resolved: 11-22-2008 11-22-2008 Episodic Alcohol-related disorders (6 sources) Alcohol abuse; Translations: [Alcohol abuse, uncomplicated] 02-12-2023 Chronic Past or Other Problems Problem Classification Problem Date Documented Date Episodic/Chronic Coronary atherosclerosis and other heart disease (12 sources) Coronary atherosclerosis and other heart disease Residual codes; unclassified (2 sources) Tobacco user; Translations: [Tobacco abuse] Resolved: 03-31-2016 03-31-2016 Chronic Unclassified (20 sources) Patient encounter status; Translations: [Annual physical exam] 05-13-2017 Unclassified (18 sources) Tobacco abuse (305.1) Unclassified (19 sources) Screening status; Translations: [Encounter for screening for malignant neoplasm of prostate (Renamed from Screening for prostate cancer)] 06-25-2018 Unclassified (6 sources) Other general medical examination for administrative purposes (V70.3) Unclassified (6 sources) Physical exam, routine (V70.0) Unclassified (6 sources) Ankle/Foot Pain (719.47) Unclassified (13 sources) Body mass index (BMI) 23.0-23.9, adult; Translations: [Body mass index 20-24 - normal] Resolved: 05-28-2017 05-28-2017 Unclassified (12 sources) Physical exam Unclassified (13 sources) Body mass index 20-24 - normal; Translations: [BMI 23.0-23.9, adult] 04-25-2019 Unclassified (13 sources) Non-smoker; Translations: [Non-smoker] 04-25-2019 Unclassified (8 sources) Encounter for well adult exam with abnormal findings Unclassified (4 sources) Foot pain, left Unclassified (3 sources) Screening for prostate cancer Unclassified (3 sources) Colon cancer screening (Renamed from Encounter for screening for malignant neoplasm of colon) Results Test Name Value Interpretation Reference Range Facil ity Vital Signs Date Time Vital Sign Value Performing Clinician Facility 02-12-2023 06:56-0400 Body height 172.72 cm Samantha Mena MA [facility] Work Phone: 02-12-2023 06:56-0400 Body mass index (BMI) [Ratio] 23.57 kg/m2 Samantha Mena MA [facility]; [facility] Work Phone: 02-12-2023 06:56-0400 Body surface area Derived from formula 1.83 m2 Samantha Mena MA [facility]; [facility] Work Phone: 02-12-2023 06:56-0400 Body temperature 97.4 [degF] Samantha Mena MA [facility] Work Phone: 02-12-2023 06:56-0400 Body weight 70.31 kg Samantha Mena MA [facility]; [facility] Work Phone: 02-12-2023 06:56-0400 Diastolic blood pressure 70 mm[Hg] Samantha Mena MA [facility]; [facility] Work Phone: Encounters Encounter Date Encounter Type Care Provider Facility Start: 03-03-2023 End: 03-03-2023 Phone Encounter Mago Criss DO Work Phone: [facility] Start: 02-12-2023 End: 02-12-2023 Office outpatient visit 40 minutes Mago Criss DO Work Phone: [facility] Start: 09-04-2022 ambulatory Mago Criss DO [facility] Start: 09-04-2022 End: 09-04-2022 Office outpatient visit 40 minutes Mago Criss DO Work Phone: [facility] Start: 01-24-2022 End: 01-24-2022 Patient encounter status Mago Criss DO Work Phone: [facility] Work Phone: Start: 01-24-2022 End: 01-24-2022 Periodic preventive med est patient 40-64yrs Mago Kahn DO Work Phone: [facility] Start: 01-24-2022 Review Mago gray DO Work Phone: [facility] Start: 01-23-2021 End: 01-23-2021 Office outpatient visit 15 minutes Mago Kahn DO Work Phone: [facility] Start: 04-25-2019 End: 04-25-2019 Patient encounter status Mago Kahn DO Work Phone: [facility] Start: 04-25-2019 End: 04-25-2019 Periodic preventive med est patient 40-64yrs Mago Kahn [facility] Start: 06-28-2018 End: 06-28-2018 Phone Encounter [facility] Kahn [facility] Start: 06-25-2018 End: 06-25-2018 Periodic preventive med est patient 40-64yrs Mago Kahn [facility] Start: 06-25-2018 End: 06-25-2018 Physical examination Linda Traore RN [facility] Work Phone: Start: 05-28-2017 End: 05-28-2017 Office outpatient visit 10 minutes Mago Kahn [facility] Start: 05-13-2017 End: 05-13-2017 Periodic preventive med est patient 40-64yrs Mago Kahn [facility] Start: 05-13-2017 End: 05-13-2017 Physical examination Mago Kahn DO Work Phone: [facility] Start: 04-01-2016 End: 04-01-2016 Patient encounter procedure Mago Kahn [facility] Start: 03-31-2016 End: 03-31-2016 Initial preventive medicine new patient 40-64yrs Mago Kahn [facility] Start: 03-31-2016 End: 03-31-2016 Patient encounter procedure Mago Kahn DO Work Phone: [facility] Start: 10-14-2011 End: 10-14-2011 Office outpatient visit 25 minutes Mago Kahn [facility] Start: 04-07-2011 End: 04-07-2011 Patient encounter procedure Mago Kahn [facility] Start: 05-08-2009 End: 05-10-2009 Patient encounter procedure Mago Kahn [facility] Start: 05-08-2009 End: 05-10-2009 Physical examination Mago Kahn DO Work Phone: [facility] Start: 12-30-2007 End: 12-30-2007 Patient encounter procedure Mago Kahn [facility] Start: 04-01-2006 End: 04-01-2006 Office outpatient visit 25 minutes Mago Kahn [facility] Start: 03-19-2006 End: 03-19-2006 Historical Summary Mago Kahn [facility] Patient encounter procedure Maribell Miranda RN [facility] Work Phone: Patient encounter status Meli Quigley LPN [facility] Work Phone: Patient encounter status Samantha Mena MA [facility]; [facility] Work Phone: Patient encounter status Meli Quigley LPN [facility] Work Phone: Physical examination Meli Nugent [facility] Work Phone: Physical examination [facility]ibell Garcia [facility] Work Phone: Physical examination Michaela Akbar CMA C [facility] Work Phone: Physical examination Samantha Mena [facility] Work Phone: Physical examination Meli Nugent [facility] Work Phone: Procedures Date Procedure Procedure Detail Performing Clinician Start: 02-03-2023 End: 02-03-2023 Chest 1 View Procedure Note: See Note; NOTES: [facility] Imaging Services [address] [place] [address] [place] [address] Chest 1 View MR#: [id number] Acct: [id number] Name: АЛЕКСАНДР CRUZ Rep #: [id number] : 1970 M 52 From: Jsaiel willis MD PCP: Dr. Mago Kahn DO Status: REG ER Study: Chest 1 View Date of Exam: 02/03/23 Exam# [id number] Ordering Dr: Gem Guerra DO STUDY: X-RAY CHEST REASON FOR EXAM: Male, 52 years old. Neuro deficit, acute, stroke suspected TECHNIQUE: Single AP portable view of the chest. COMPARISON: None. FINDINGS: EKG electrodes are seen. The lungs are clear and expanded. There is no demonstrated pleural abnormality. Normal size heart. Normal mediastinum and j luis. Normal visualized pulmonary arteries. Normal visualized aortic arch and descending thoracic aorta. Normal visualized thoracic spine. Normal visualized ribs, clavicles, and shoulders. There is no demonstrated abnormality of the visualized soft tissue structures of the upper abdomen. RAD/Chest 1 View IMPRESSION: Normal x-ray examination of the chest. Electronically Signed: Jasiel Davenport MD at 14:25 EDT Reading Location ID and State: [address] [place] [address] , Service support , CC: Dr. Mago Kahn DO; Dr. Gem Guerra DO Light Fixture Servicer: Signed Mago Kahn DO Work Phone: Start: 02-03-2023 End: 02-03-2023 STROKE Brain/Head without Cont Procedure Note: See Note; NOTES: [facility] Imaging Services [address] [place] [id number] STROKE Brain/Head without Cont MR#: [id number] Acct: [id number] Name: АЛЕКСАНДР CRUZ Rep #: [id number] : 1970 M 52 From: Jasiel willis MD PCP: Dr. Mago Kahn DO Status: REG ER Study: STROKE Brain/Head without Cont Date of Exam: 0 02/03/23 Exam# [id number] Ordering Dr: Gem Guerra DO STUDY: CT HEAD STROKE PROTOCOL W/O CONTRAST INJECTION REASON FOR EXAM: Male, 52 years old. Neuro deficit, acute, stroke suspected RADIATION DOSAGE (If Supplied By Facility): CTDIvol = ( 44.99 ) mGy, DLP = ( 846.73 ) mGycm TECHNIQUE: Transaxial CT imaging of the brain was performed without administration of intravenous contrast material. Individualized dose optimization techniques were used for this CT. COMPARISON: No relevant priors. FINDINGS: Normal soft tissue structures. Normal calvarium. Normal size ventricles and extra-axial spaces for the patient''s age. Normal white matter tracts of the cerebral hemispheres. Normal basal ganglia and thalami. Normal brainstem. Normal cerebellum. There is no intracranial hemorrhage. There are no findings of an acute ischemic infarction. Minimal degree of mucosal thickening of the maxillary sinuses. ASPECT score: 10 CT/STROKE Brain/Head without Cont IMPRESSION: Normal unenhanced CT scan of the brain. N.B. : The above Results were Read Back by Jasiel Davenport MD to Gem Guerra and understanding confirmed on 02/03/2023 13:48:17 (ET). Electronically Signed: Jasiel Davenport MD at 13:49 EDT , CC: Dr. Mago Kahn DO; Dr. Gem Guerra DO Light Fixture Servicer: Signed Mago Kahn DO Work Phone: Start: 02-03-2023 End: 02-03-2023 STROKE CTA Head AND Neck W/Con Procedure Note: See Note; NOTES: [facility] Imaging Services [address] [place] [address] STROKE CTA Head AND Neck W/Con MR#: [id number] Acct: [id number] Name: АЛЕКСАНДР CRUZ Rep #: [id number] : 1970 M 52 From: Jasiel willis MD PCP: Dr. Mago Kahn, DO Status: REG ER Study: STROKE CTA Head AND Neck W/Con Date of Exam: 0 02/03/23 Exam# [id number] Ordering Dr: Gem Guerra DO STUDY: CTA HEAD AND NECK WITH CONTRAST REASON FOR EXAM: Male, 52 years old. Neuro deficit, acute, stroke suspected RADIATION DOSAGE (If Supplied By Facility): CTDIvol = ( 22.00 ) mGy, DLP = ( 810.15 ) mGycm TECHNIQUE: CT angiography was performed with a multi-detector CT scanner. Data acquisition was obtained from the skull base through the vertex following intravenous administration of IV 100mL Isovue-370. MIP images were reconstructed from the axial data set. Post-processing of the angiographic images was performed, with multiplanar reformation and 3D reconstruction. Individualized dose optimization techniques were used for this CT. COMPARISON: No relevant priors. FINDINGS: Normal bilateral petrous carotid arteries. There is calcified plaque formation of the right cavernous carotid artery, without a cross-sectional luminal stenosis. There is calcified plaque formation of the left cavernous carotid artery, without a cross-sectional luminal stenosis. Normal right A1 segments of the anterior cerebral artery. Normal left A1 segments of the anterior cerebral artery. Normal intact anterior communicating artery (ACOM). Normal bilateral A2 segments of the anterior cerebral arteries. Normal right M1 and M2 segments of the middle cerebral arteries, with a normal M1 bifurcation. Normal left M1 and M2 segments of the middle cerebral arteries, with a normal M1 bifurcation. Normal right posterior communicating artery (PCOM). Normal left posterior communicating artery (PCOM). Normal bilateral vertebral arteries. Normal basilar artery with a normal basilar bifurcation. The visualized bilateral superior cerebellar (SCA) arteries are normal. Normal bilateral P1, P2 and visualized P3 segments of the posterior cerebral arteries. There is no demonstrated aneurysm of the [place] of [place]. There is no demonstrated abnormality of the visualized brain. AORTIC ARCH: There is atherosclerotic calcific plaque formation of the aortic arch and great vessels arising from the aortic arch, without a hemodynamically significant stenosis. There is a normal origin of the brachiocephalic, left common carotid, and left subclavian arteries. Nonstenotic calcific plaque at the origin of the left subclavian artery. RIGHT CAROTID ARTERIES: Normal right common carotid artery (CCA). Normal right common carotid bulb. There is mild atherosclerotic plaque formation of the origin of the right internal carotid artery with less than 50% cross sectional diameter stenosis. Normal visualized cervical portion of the right internal carotid artery. Normal origin of the right external carotid artery (ECA). LEFT CAROTID ARTERIES: Normal left common carotid artery (CCA). Normal left common carotid bulb. Normal origin of the left internal carotid (ICA) artery without a hemodynamically significant stenosis. Normal visualized cervical portion of the left internal carotid artery. Normal origin of the left external carotid artery (ECA). VERTEBRAL ARTERIES: Normal bilateral vertebral arteries. CT/STROKE CTA Head AND Neck W/Con IMPRESSION: Mild calcific plaque at the origin of the right internal carotid artery. N.B. : The above Results were Read Back by Jasiel Davenport MD to Dr Handy Tarango DO, and understanding confirmed on 02/03/2023 13:59:40 (ET). Electronically Signed: Jasiel Davenport MD at 14:01 EDT , CC: Dr. Mago Kahn DO; Dr. Gem Guerra DO Light Fixture Servicer: Signed Mago Kahn DO Work Phone: Start: 09-29-2022 End: 09-29-2022 Stress Report Procedure Note: See Note; NOTES: [facility] Cardi[facility] [address] [address] MR#: [id number] Acct: [id number] Name: АЛЕКСАНДР CRUZ Rep #: [id number] : 1970 52 From: Kenneth Pringle MD Primary Care: Dr. Mago Kahn, Status: REG CLI Referring Dr: Mago Kahn DO Sex: M C Stress Test Report Date: 09/25/2022 Procedure: Exercise tolerance test/imaging study Indications: Chest pain Consent: Per the patient Procedure: The patient exercised on a Tino protocol for 10 minutes achieving a peak heart rate of 166 bpm (98% predicted maximal heart rate) with a peak blood pressure 160/70 mmHg and a peak MET capacity of 13.4 METs. The baseline ECG demonstrated normal sinus rhythm. The peak exercise ECG demonstrated no significant ischemic changes. EKG during recovery revealed no significant ischemic changes [There were no cardiac dysrhythmias pretest, during exercise, or recovery]. The functional capacity was considered normal for age. There was [no complaint of chest discomfort during exercise or recovery]. The examination was discontinued secondary to achieving target heart rate, mild shortness of breath. Impression: 1. Technically adequate (percent predicted maximal heart rate greater than 85%) exercise tolerance test 2. Stress test is negative for exercise-induced EKG changes of ischemia 3. The test test is negative for exercise-induced chest pain 4. Functional capacity is normal for age 5. Nuclear images pending Myocardial perfusion imaging study: Technique: The patient was injected with 11 mCi of technetium 99m Cardiolite and subsequently rest SPECT Cardiolite nuclear imaging was obtained in the horizontal long, vertical long, and short axis views. The patient exercised on a Tino protocol. Please see above for details. The patient was injected with 31.9 mCi of technetium 99m Cardiolite and subsequently stress SPECT Cardiolite nuclear imaging was obtained in the horizontal long, vertical long, and short axis views. A gated Cardiolite study at peak stress was obtained. Interpretation: Rest and stress SPECT Cardiolite nuclear imaging status post realignment, normalization, and attenuation correction, demonstrates normal myocardial radioisotope uptake. The gated Cardiolite study demonstrates no significant regional wall motion abnormalities. The reported LVEF is 62%. Impression: 1. There is no evidence of significant ischemia or infarction. 2. The gated Cardiolite study reports an LVEF of 62%. This note was generated with [employer] dictation software. It may contain incorrect words, spelling, and punctuation that were not noted in checking the note before signing. 09/29/221647 <Electronically signed by Kenneth Pringle MD> Date Kenneth Pringle MD CC: Dr. Mago Kahn DO Date Dictated: 09/29/221642 Date Transcribed: 09/29/221642 Light Fixture Servicer: JOSE Signed Mago Kahn DO Work Phone: Start: 09-25-2022 End: 09-26-2022 Echo Complete Procedure Note: See Note; NOTES: [facility] Cardi[facility] Services [address] [place] [address] Echo Complete 09/25/22916 MR#: [id number] Acct: [id number] Name: АЛЕКСАНДР CRUZ Rep #: [id number] : 1970 52 From: Kenneth Pringle MD Attending Dr: Dr. Mago Kahn, Status: R EG CLI Ordering Dr: Mago Kahn DO Date: 09/25/22 Location: [facility] Sex: M C Admitted: Reason For Study: CHEST PAIN Procedure This was a 2D Doppler, Color Flow transthoracic echocardiogram. Exam performed in department. Left Ventricle Normal LV size. The estimated ejection fraction is 65 %. No evidence for diastolic dysfunction. No regional wall motion abnormalities noted. Right Ventricle Normal RV size. Normal systolic function. Atria Normal left atrium. Normal right atrium. No doppler evidence for ASD. Mitral Valve There is no mitral valve stenosis. No mitral valve insufficiency. Tricuspid Valve There is no tricuspid stenosis. Unable to estimate RV systolic pressure due to inadequate jet, pulmonary artery pressure probably normal. Aortic Valve Trisinus/trileaflet aortic valve. There is no aortic stenosis. No aortic valve insufficiency. Pulmonic Valve There is no pulmonic valvular stenosis. No pulmonic valve insufficiency. Great Vessels Normal aortic root. Pericardium/Pleural No pericardial effusion. MMode/2D Measurements Calculations LVIDd: 4.7 cm IVSd: 0.85 cm Ao root diam: 4.0 cm LVIDs: 3.0 cm LVPWd: 0.87 cm RVDd: 3.9 cm FS: 36.8 % LAV(MOD-bp): 35.8 ml LVAd ap4: 30.2 cm2 LVAd ap2: 28.5 cm2 LAV(MOD-bp) Indexed: 19.2 ml/m2 LVLd ap4: 8.3 cm LVLd ap2: 8.0 cm LAV(MOD-sp2): 32.4 ml EDV(MOD-sp4): 90.2 ml EDV(MOD-sp2): 84.3 ml LAV(MOD-sp4): 34.7 ml EDV(sp4-el): 93.6 ml EDV(sp2-el): 85.8 ml LVAs ap4: 18.1 cm2 LVAs ap2: 15.7 cm2 LVLs ap4: 6.9 cm LVLs ap2: 6.2 cm ESV(MOD-sp4): 40.9 ml ESV(MOD-sp2): 33.9 ml ESV(sp4-el): 40.5 ml ESV(sp2-el): 33.9 ml EF(MOD-sp4): 54.7 % EF(MOD-sp2): 59.8 % EF(sp4-el): 56.7 % SV(MOD-sp4): 49.3 ml SV(MOD-sp2): 50.4 ml SV(sp4-el): 53.0 ml LA dimension(2D): 4.3 cm LA A4 area: 13.3 cm2 RA A4 area: 13.4 cm2 Time Measurements MV dec time: 0.22 sec Doppler Measurements Calculations MV E max leonard: 58.9 cm/sec Lat Peak E' Loenard: 7.3 cm/sec Med Peak E' Leonard: 9.3 cm/sec MV A max leonard: 67.1 cm/sec E/E' lat: 8.0 E/E' med: 6.3 MV E/A: 0.88 Ao V2 max: 101.9 cm/sec LV V1 max: 86.1 cm/sec PA V2 max: 81.9 cm/sec Ao max P.2 mmHg LV V1 max P.0 mmHg Ao V2 mean: 73.2 cm/sec LV V1 mean P.6 mmHg Ao mean P.4 mmHg LV V1 mean: 59.4 cm/sec Ao V2 VTI: 21.5 cm LV V1 VTI: 16.7 cm AV (velocity ratio): 0.78 TR max leonard: 224.9 cm/sec TR max P.2 mmHg ECHO/Echo Complete Interpretation Summary The estimated ejection fraction is 65 %. No evidence for diastolic dysfunction. Ordering Physician: Mago Kahn Referring Physician: Mago Kahn Performed By: Sherie Myles, RDCS, RVT 09/26/22 1305 Date Kenneth Pringle MD CC: Dr. Mago Kahn DO Date Dictated: 09/25/22916 Date Transcribed: 09/26/22 130 Light Fixture Servicer: Signed Mago Kahn DO Work Phone: Start: 05-07-2022 End: 05-07-2022 Colonoscopy Report Procedure Note: See Note; NOTES: [facility] Medical Records Department [address] [place] [id number] Colonoscopy Report MR#: [id number] Acct: [id number] Name: АЛЕКСАНДР CRUZ Rep #: [id number] : 1970 52 From: Shira Echeverria MD PCP: Dr. Mago Kahn DO Status:REG [facility] Patient Name: Александр Cruz Procedure Date: 05/07/2022 8:28 AM Date of : 1970 Age: 52 Procedure: Colonoscopy Indications: Screening for colorectal malignant neoplasm Providers: Shira Echeverria MD Referring MD: Shira Echeverria MD Medicines: Monitored Anesthesia Care Patient Profile: This is a 52 year old male. Last Colonoscopy: none. The patient's first colonoscopy is today. Complications: No immediate complications. Procedure: Pre-Anesthesia Assessment: - Prior to the procedure, a History and Physical was performed, and patient medications and allergies were reviewed. The patient's tolerance of previous anesthesia was also reviewed. The risks and benefits of the procedure and the sedation options and risks were discussed with the patient. All questions were answered, and informed consent was obtained. Prior Anticoagulants: The patient has taken no previous anticoagulant or antiplatelet agents. ASA Grade Assessment: Per anesthesia. After reviewing the risks and benefits, the patient was deemed in satisfactory condition to undergo the procedure. After I obtained informed consent, the scope was passed under direct vision. Throughout the procedure, the patient's blood pressure, pulse, and oxygen saturations were monitored continuously. The Colonoscope was introduced through the anus and advanced to the cecum, identified by appendiceal orifice and ileocecal valve. The colonoscopy was performed without difficulty. The patient tolerated the procedure well. The quality of the bowel preparation was good. Scope In: 8:34:38 AM Scope Withdrawal Time 0 hours 13 minutes 30 seconds Scope Out: 8:55:24 AM Total Procedure Duration Time 0 hours 20 minutes 46 seconds Findings: The perianal and digital rectal examinations were normal. Multiple small-mouthed diverticula were found in the sigmoid colon. A less than 5 mm polyp was found in the rectum. The polyp was sessile. The polyp was removed with a cold biopsy forceps. Resection and retrieval were complete. The exam was otherwise without abnormality on direct and retroflexion views. Impression: - Diverticulosis in the sigmoid colon. - One less than 5 mm polyp in the rectum, removed with a cold biopsy forceps. Resected and retrieved. - The examination was otherwise normal on direct and retroflexion views. Recommendation: - Discharge patient to home. - High fiber diet. - Continue present medications. - Await pathology results. - Repeat colonoscopy in 5-10 years for surveillance based on pathology results. Procedure Code(s): --- Professional --- 36879, PT, Colonoscopy, flexible; with biopsy, single or multiple Diagnosis Code(s): --- Professional --- Z12.11, Encounter for screening for malignant neoplasm of colon K62.1, Rectal polyp K57.30, Diverticulosis of large intestine without perforation or abscess without bleeding CPT copyright 2017 [employer]. All rights reserved. The codes documented in this report are preliminary and upon metal mover review may be revised to meet current compliance requirements. MD Shira Ivey MD 05/07/2022 9:05:55 AM This report has been signed electronically. Number of Addenda: 0 Note Initiated On: 05/07/2022 8:28 AM 05/07/22905 Date Shira Echeverria MD Cosigner Signature: Date (if indicated) CC: Dr. Mago Kahn DO; Dr. Shira Echeverria MD Date Dictated: 05/07/22827 Date Transcribed: Light Fixture Servicer: TR Signed Mago Kahn DO Work Phone: Start: 05-07-2022 End: 05-07-2022 History and Physical Exam Procedure Note: See Note; NOTES: [facility] Medical Records Department [address] [place] [address] History Physical Exam 05/07/2232 MR#: [id number] Acct: [id number] Name: АЛЕКСАНДР CRUZ Rep #: [id number] : 1970 52 From: Shira Echeverria MD PCP: Dr. Mago Kahn DO Status:[facility] Location: [place] [address] HPI - General HPI Narrative АЛЕКСАНДР CRUZ, is a 52 M who presents for screening colonoscopy. Patient's never had a previous colonoscopy. Patient denies any family history of colon cancer. Patient's bowel moods daily denies any blood. Patient denies any chronic abdominal pain/nausea/vomiting/reflux. States he has had some abdominal pain 2 episodes 1 after the fair and 1 after having pizza. However he states he took a couple Prilosec and that improved after he was having pain for about a week. Patient states the pain may have little bit lower in the abdomen. Denies diarrhea with this. [facility] Medical History (Updated 05/02/22 @ 14:33 by Ella Isaac) Alcohol use Former smoker Gastric reflux Hyperlipidemia, unspecified Injury of head and neck Marijuana use Wears glasses Home Medications omeprazole 20 mg capsule,delayed release 20 mg PO DAILY 05/07/22 [History Last Taken Unknown] Allergy/AdvReac Type Severity Reaction Status Date / Time Penicillins Allergy PT UNSURE Verified 05/07/22 07:43 OF REACTION Family History (Updated 03/20/22 @ 12:59 by Belgica Flower) Mother CVA (cerebral vascular accident) Father Lung cancer Surgical History (Updated 05/02/22 @ 14:33 by Ella Isaac) No history of previous surgery Social History Smoking Status: Former smoker Past Medical/Surgical History Planned Operation Planned Operative Procedure/s: CSCOPE OA Previous Hospitalizations/Surgeries HX Hospitalizations: No Any Problems With Anesthesia: No You/Your Family Experience Fever (Hyperthermia) With Anes: No Cholinesterase deficiency: No Cardiovascular Hx Hypertension: No Respiratory Hx Sleep Apnea: No Hx Respiratory Tract Infection/Cold (presently): No Do You Snore Loudly (louder than talking or can be heard): No Do You Often Feel Tired/ Fatigued/ Sleepy Dring Daytime?: No Has Anyone Observed You Stop Breathing During Sleep?: No Result (for STOP score): Negative Smoking Status: Former smoker Neurological Does patient have nerve stimulator: No Reproduction : No Allergies Penicillins Allergy (Verified 05/07/22 07:43) PT UNSURE OF REACTION Discharge Is Pt Admitted From a Detention, or a Snf: No After D/C, Where Do you Plan to Go: Return Home Physical Exam Const alert, oriented x3 and no apparent distress HEENT normocephalic and head/scalp atraumatic Resp normal respiratory effort Cardio regular rate GI soft to palpation and non-tender; Negative for non-distended Palpation: Negative for guarding Extremity no clubbing, cyanosis or edema Neuro CN's II-XII intact bilaterally Psych mental status grossly normal Assessment Plan Assessment/Plan (1) Encounter for screening for malignant neoplasm of colon: Surgery Risks - Colonoscopy Risks Include but are not Limited To: Risks include but are not limited to: Bleeding, perforation requiring further surgery, inability to complete colonoscopy requiring barium enema. 05/07/22821 <Electronically signed by Shira Echeverria MD> Cosigner Signature (if applicable): CC: Dr. Mago Kahn DO; Dr. Shira Echeverria MD Signed Mago Kahn DO Work Phone: Start: 02-27-2021 End: 02-27-2021 Foot min 3 Views Comments: See Note; NOTES: [facility] [address] [place] [address] Foot min 3 Views MR#: [id number] Acct: [id number] Name: АЛЕКСАНДР CRUZ Rep #: [id number] : 1970 M 50 From: Saturnino Villegas MD PCP: Dr. Mago Kahn DO Status: DEP AMB Study: Foot min 3 Views Date of Exam: 02/27/21 Exam# [id number] Ordering Dr: Heather Zuluaga DPM INDICATION: fracture EXAMINATION/TECHNIQUE: X-RAY - LEFT XR Foot Min 3 Views 3 VIEWS COMPARISON: 01/23/2021. FINDINGS: SOFT TISSUES: No soft tissue swelling or gas. No radiopaque foreign body. BONES/JOINTS: Extensive bone formation visualized overlying and obscuring the previously visualized fracture of the second metatarsal bone, bone segments are in near-anatomic alignment, subtle lucency visualized with well-corticated borders consistent with progressive healing. RAD/Foot min 3 Views IMPRESSION: Progressive healing of fracture of the second metatarsal bone of the left foot. Electronically Signed: Saturnino Villegas MD at 13:12 EDT Tel , Service support , CC: EDUAR Zuluaga; Dr. Mago Kahn DO Light Fixture Servicer: Signed Mago Kahn DO Work Phone: Start: 01-23-2021 End: 01-23-2021 Foot min 3 Views Comments: See Note; NOTES: [facility] [address] [place] [address] Foot min 3 Views MR#: [id number] Acct: [id number] Name: АЛЕКСАНДР CRUZ Rep #: [id number] : 1970 M 50 From: Jasiel willis MD PCP: Dr. Mago Kahn DO Status: DEP AMB Study: Foot min 3 Views Date of Exam: 01/23/21 Exam# [id number] Ordering Dr: Melinda Jordan NP RIVET MACHINE OPERATOR-Jose STUDY: X-RAY - LEFT FOOT CLINICAL: Male, 50 years old. FELL ONE WEEK AGO, PAIN TECHNIQUE: 3 view(s) of the foot. COMPARISON: None. FINDINGS: Normal talus, calcaneus, and tarsal bones. Normal visualized subtalar, talonavicular, calcaneocuboid, tarsal and tarsometatarsal articulations. Nondisplaced transverse fracture through the midportion of the second metatarsal. Normal metatarsophalangeal joint of the great toe. Normal tibial and fibular sesamoid bones. Normal interphalangeal joint of the great toe. Normal phalanges of the great toe. Normal second through fifth metatarsophalangeal joints. Normal interphalangeal joints and phalanges of the lesser toes. Soft tissue swelling. RAD/Foot min 3 Views IMPRESSION: Nondisplaced fracture through the midportion of the second metatarsal with overlying soft tissue swelling. Electronically Signed: Jasiel Davenport MD at 10:47 EDT , Service support , CC: RIVET MACHINE OPERATOR-Jose Jordan; Dr. Mago Kahn DO Light Fixture Servicer: Signed Melinda Jordan [facility] Work Phone: Plan of Treatment Date Care Activity Detail Author Start: 02-12-2023 Procedure Education Eprescribed prescriptions (G8553) [facility] Work Phone: Start: 02-12-2023 Comprehensive metabolic panel METABOLIC PANEL, COMPREHENSIVE (62744) [facility]; [facility] Work Phone: Start: 02-12-2023 Lipid panel LIPID PANEL (29660) [facility] Work Phone: Start: 09-04-2022 Assay of troponin quantitative Troponin I (79424) [facility] Work Phone: Start: 09-04-2022 Procedure Education Eprescribed prescriptions (G8553) [facility]; [facility] Work Phone: Start: 09-04-2022 Provider Instructions for Treatment Reviewed Lab [facility]; [facility] Work Phone: Start: 01-24-2022 Assay of prostate specific antigen total PSA (PROSTATE SPECIFIC ANTIGEN) (85125) [facility]; [facility] Work Phone: Start: 01-24-2022 Lipid panel LIPID PANEL (97017) [facility] Work Phone: Start: 01-23-2021 Procedure Education Eprescribed prescriptions (G8553) [facility]; [facility] Work Phone: Start: 01-23-2021 Provider Instructions for Treatment Follow up if no improvement or if symptoms worsen [facility]; [facility] Work Phone: Start: 04-25-2019 Assay of prostate specific antigen total PSA (PROSTATE SPECIFIC ANTIGEN) (V76.44) [facility] Work Phone: Start: 04-25-2019 Lipoprotein blood vanesa numbers & subclasses NMR Profile (34051) [facility] Work Phone: Start: 04-25-2019 Glucose [Mass/Vol] GLUCOSE (81009) [facility] Work Phone: Start: 04-25-2019 Procedure Education Eprescribed prescriptions (G8553) [facility] Work Phone: Start: 04-25-2019 Provider Instructions for Treatment [facility] Work Phone: Start: 06-28-2018 Lipid panel Lipid Panel (48883) [facility] Work Phone: Start: 06-25-2018 Procedure Education Eprescribed prescriptions (G8553) [facility] Work Phone: Start: 05-28-2017 Procedure Education Eprescribed prescriptions (G8553) [facility] Work Phone: Start: 05-28-2017 Provider Instructions for Treatment [facility] Work Phone: Start: 03-31-2016 Assay of prostate specific antigen total PSA (PROSTATE SPECIFIC ANTIGEN) (V76.44) [facility] Work Phone: Start: 03-31-2016 Protein mass conc PSA (PROSTATE SPECIFIC ANTIGEN) (V76.44) [facility] Work Phone: Start: 03-31-2016 Glucose mass conc GLUCOSE (06071) [facility] Work Phone: Start: 03-31-2016 Glucose quantitative blood xcpt reagent strip GLUCOSE (36778) [facility]; [facility] Work Phone: Start: 03-31-2016 Lipid panel LIPID PANEL (49601) [facility] Work Phone: Start: 03-31-2016 Provider Instructions for Treatment Follow up in 1 year or as needed [facility] Work Phone: Start: 10-14-2011 Provider Instructions for Treatment Poison Lilian Education [facility] Work Phone: Start: 12-30-2007 Lipid panel LIPID PANEL (27537) [facility] Work Phone: Start: 04-01-2006 Provider Instructions for Treatment [facility] Work Phone: [facility] Work Phone: [facility] Work Phone: [facility] Work Phone: [facility] Work Phone: [facility] Work Phone: [facility] Work Phone: [facility] Work Phone: [facility] Work Phone: [facility] Work Phone: Immunizations Immunization Date Immunization Notes Care Provider Violeta saucedo 03-29-2019 influenza, seasonal, injectable Mago Kahn [facility] Work Phone: 05-08-2009 tetanus toxoid, reduced diphtheria toxoid, and acellular pertussis vaccine, adsorbed Mago Kahn [facility] Work Phone: Payers Date Payer Category Payer Unknown [id number] 2021 Unknown [id number] 2020 Private Health Insurance [id number] 2017 Unknown [id number] 2007 Unknown [id number] 1970 Unknown [id number] Private Health Insurance [id number] Private Health Insurance [id number] Unknown Unknown [id number] Unknown [id number] Social History Date Type Detail Facility Alcohol Use Current every day smoker [facility] Work Phone: Functional Status Date Assessment Result Facility 05-06-2019 LP-IR Score LP-IR Score 56 [facility] Work Phone: Instructions Note Date & Type Note Facility [facility] Work Phone: Instructions Note Date & Type Note Facility [facility] Work Phone: Instructions Note Date & Type Note Facility [facility] Work Phone: Instructions Note Date & Type Note Facility [facility] Work Phone: Instructions Note Date & Type Note Facility [facility] Work Phone: Instructions Note Date & Type Note Facility [facility] Work Phone: Instructions Note Date & Type Note Facility [facility] Work Phone: Instructions Note Date & Type Note Facility [facility] Work Phone: Instructions Note Date & Type Note Facility [facility]; [facility] Work Phone: Family History Unknown Family Member Name Dates Details Father Comments:TTP Status:Active Mother Comments:CVA 42 yo Status:Active Unknown Family Member Name Dates Details Father Comments:TTP Status:Active Mother Comments:CVA 42 yo Status:Active Unknown Family Member Name Dates Details Father Comments:TTP Status:Active Mother Comments:CVA 42 yo Status:Active Unknown Family Member Name Dates Details Father Comments:TTPPassed away with lung cancer that was caught at stage 4 Status:Active Mother Comments:CVA 42 yo Status:Active Unknown Family Member Name Dates Details Father Comments:TTPPassed away with lung cancer that was caught at stage 4 Status:Active Mother Comments:CVA 42 yo Status:Active Unknown Family Member Name Dates Details Father Comments:TTPPassed away with lung cancer that was caught at stage 4 Status:Active Mother Comments:CVA 42 yo Status:Active Unknown Family Member Name Dates Details Father Comments:TTPPassed away with lung cancer that was caught at stage 4 Status:Active Mother Comments:CVA 42 yo Status:Active Unknown Family Member Name Dates Details Father Comments:TTPPassed away with lung cancer that was caught at stage 4 Status:Active Mother Comments:CVA 42 yo Status:Active Unknown Family Member Name Dates Details Father Comments:TTPPassed away with lung cancer that was caught at stage 4 Status:Active Mother Comments:CVA 42 yo Status:Active Unknown Family Member Name Dates Details Father Comments:TTPPassed away with lung cancer that was caught at stage 4 Status:Active Mother Comments:CVA 42 yo Status:Active Unknown Family Member Name Dates Details Father Comments:TTPPassed away with lung cancer that was caught at stage 4 Status:Active Mother Comments:CVA 42 yo Status:Active Instructions Name Dates Details Current nonsmoker : How to a ccess health information online Indication:Current nonsmoker Current nonsmoker : How to a ccess health information online - Detail Indication:Current nonsmoker Current nonsmoker : Patient Instructions Indication:Current nonsmoker Palpable abd. aorta : How to access health information online Indication:Palpable abd. aorta Palpable abd. aorta : How to access health information online - Detail Indication:Palpable abd. aorta Palpable abd. aorta : Patien t Instructions Indication:Palpable abd. aorta Body mass index (BMI) 23.0-2 3.9, adult : How to access health information online Indication:Body mass index (BMI) 23.0-23.9, adult Body mass index (BMI) 23.0-2 3.9, adult : How to access health information online - Detail Indication:Body mass index (BMI) 23.0-23.9, adult Body mass index (BMI) 23.0-2 3.9, adult : Patient Instructions Indication:Body mass index (BMI) 23.0-23.9, adult Name Dates Details How to access health informa tion online Indication:Non-smoker Start:25-Apr-2019 Instruction Type:Patient Education How to access health informa tion online - Detail Indication:Non-smoker Start:25-Apr-2019 Instruction Type:Patient Education Patient Instructions Indication:Non-smoker Start:25-Apr-2019 Instruction Type:Provider Instructions for Treatment How to access health informa tion online Indication:Current nonsmoker Start:25-Jun-2018 Instruction Type:Patient Education How to access health informa tion online - Detail Indication:Current nonsmoker Start:25-Jun-2018 Instruction Type:Patient Education Patient Instructions Indication:Current nonsmoker Start:25-Jun-2018 Instruction Type:Provider Instructions for Treatment How to access health informa tion online Indication:Palpable abd. aorta Start:28-May-2017 Instruction Type:Patient Education How to access health informa tion online - Detail Indication:Palpable abd. aorta Start:28-May-2017 Instruction Type:Patient Education Patient Instructions Indication:Palpable abd. aorta Start:28-May-2017 Instruction Type:Provider Instructions for Treatment How to access health informa tion online Indication:Body mass index (BMI) 23.0-23.9, adult Start:13-May-2017 Instruction Type:Patient Education How to access health informa tion online - Detail Indication:Body mass index (BMI) 23.0-23.9, adult Start:13-May-2017 Instruction Type:Patient Education Patient Instructions Indication:Body mass index (BMI) 23.0-23.9, adult Start:13-May-2017 Instruction Type:Provider Instructions for Treatment Advance Directives Name Dates Details Immunization Registry [place] - Effective on 04/25/2019. Expiration date unspecified Effective:25-Apr-2019 Name Dates Details Immunization Registry [place] - Effective on 04/25/2019. Expiration date unspecified Effective:25-Apr-2019 Name Dates Details Immunization Registry [place] - Effective on 04/25/2019. Expiration date unspecified Effective:25-Apr-2019 Name Dates Details Immunization Registry [place] - Effective on 04/25/2019. Expiration date unspecified Effective:25-Apr-2019 Name Dates Details Immunization Registry [place] - Effective on 04/25/2019. Expiration date unspecified Effective:25-Apr-2019 Name Dates Details Immunization Registry [place] - Effective on 04/25/2019. Expiration date unspecified Effective:25-Apr-2019 Name Dates Details Immunization Registry [place] - Effective on 04/25/2019. Expiration date unspecified Effective:25-Apr-2019 Name Dates Details Immunization Registry [place] - Effective on 04/25/2019. Expiration date unspecified Effective:25-Apr-2019 Summary Purpose Additional Source Comments (unrecognized sect ion and content) No Status Records Found INFORMATION SOURCE (unrecogn ized section and content) FOR RECORDS PERTAINING TO PATIENTS WHO ARE OR HAVE BEEN ENROLLED IN A CHEMICAL DEPENDENCY/SUBSTANCEABUSE PROGRAM, SOME INFORMATION MAY BE OMITTED. This clinical summary was aggregated from multiple sources. Caution should be exercised in using it in the provision of clinical care. This summary normalizes information from multiple sources, and as a consequence, information in this document may materially change the coding, format and clinical context of patient data. In addition, data may be omitted in some cases. CLINICAL DECISIONS SHOULD BE BASED ON THE PRIMARY CLINICAL RECORDS. [facility] [employer], [facility]. provides no warranty or guarantee of the accuracy or completeness of information in this document.
[2023-08-13 10:25] LABS: AST(SGOT) 28 U/L (15-37); Alanine Aminotransfer ALT/SGPT 26 U/L (16-61); Alkaline Phosphatase 94 U/L (45-117); Anion Gap 7 (5-15); BUN 16 mg/dL (7-18); BUN/Creat Ratio 15.2 RATIO (10-20); Calcium,Total 9.5 mg/dL (8.5-10.1); Chloride 104 mmol/L (98-107); Cholesterol 143 mg/dL (200); Creatinine, Serum 1.05 mg/dL (0.70-1.30); EST Glomerular Filtration Rate 79 mL/min (>60); Est Glom Filt Rate - Afr Amer 95 mL/min (>60); Globulin 4.1 g/dL (2.2-4.2); Glucose 96 mg/dL (74-106); High Density Lipoprotein 54 mg/dL; Potassium 3.8 mmol/L (3.5-5.1); Protein, Total 8.1 g/dL (6.4-8.2); Sodium Level 138 mmol/L (136-145); Triglycerides 82 mg/dL; Very Low Density Lipoprotein 16 mg/dL (5-40)
[2023-08-13 11:05] LABS: Erythrocyte Sedimentation Rate 6 mm/hr (0-20)
[2023-08-14 12:09] LABS: ANTINUCLEAR ANTIBODIES DIRECT Negative (Negative)
[2023-08-26 12:09] LABS: Anti-Cardiolipin Ab, IgA, Qn < 9 APL U/mL (0-11); Anti-Cardiolipin Ab, IgG, Qn < 9 GPL U/mL (0-14); Anti-Cardiolipin Ab, IgM, Qn < 9 MPL U/mL (0-12); Anti-Thrombin 3 AG, Immunol 101 % (72-124); Antithrombin 3 Function 111 % (75-135); Complement C3 84 mg/dL (82-167); Complement CH50 55 U/mL (>41); Dilute Prothrombin Time (dPT) 45.1 sec (0.0-47.6); Dilute Russell Viper Venom 38.5 sec (0.0-47.0); Interpretation Comment: (.); PTT-LA 32.6 sec (0.0-43.5); Protein C Antigen 72 % (60-150); Protein C, Functional 90 % (73-180); Protein S, Free 100 % (61-136); Protein S, Funtional 108 % (63-140); Protein S, Total 80 % (60-150); Thrombin Time 17.8 sec (0.0-23.0); dPT Confirm Ratio 1.24 Ratio (0.00-1.34)
== END | disposition home or self-care (01) ==
LOC: MTLAB 07:03
PROVIDERS: PCP Internal Medicine; Referring Provider Psychiatry & Neurology Neurology; Visit Provider Psychiatry & Neurology Neurology
DX: G45.9 Transient cerebral ischemic attack, unspecified (principal)
CPT/HCPCS: 36415; 80053; 80061; 81240; 81241; 85300; 85301; 85302; 85303; 85305; 85306; 85652; 86038; 86147; 86160; 86162; 86225; 86235

== ENCOUNTER → 2025-06-14 | Outpatient (CLI) | payer OTHER, SELFPAY ==
--- NOTE | 2025-06-14 07:20 | CT_ITS ---
PROCEDURE: LOW DOSE CT LUNG SCREENING 06/14/2025 REASON FOR EXAM: TOBACCO ABUSE TECHNIQUE: Procedure Code: CTLUNGSCREEN Modality: CT Procedure: LOW DOSE CT LUNG SCREENING Coronal and Sagittal reconstruction series were generated. One or more dose reduction techniques were used (e.g., Automated exposure control, adjustment of the mA and/or kV according to patient size, use of iterative reconstruction technique). RADIATION DOSE SUMMARY: CTDlvol: 2.01 mGy DLP: 81.28 mGycm COMPARISON: None FINDINGS: Note that evaluation of the vasculature, j luis, and soft tissues is limited in the absence of IV contrast. Heart/pericardium:Mild/moderate calcific coronary atherosclerosis and/or stents. Trace aortic annular/mitral calcification. Aorta: Mild calcific atherosclerosis.. Pulmonary arteries: Unremarkable. Lymph nodes: Unremarkable. Lungs/pleura: Emphysema with hyperinflation. Minimal atelectasis/scarring. Small fat containing LEFT posterior likely Bochdalek hernia. Sub-4 mm RIGHT upper lobe micronodule (series 2, image 93, 95 and 134).. Accessory fissure RIGHT lower lobe, normal variant. Mild biapical pleural/parenchymal scarring. Airways: Unremarkable. Chest wall: Unremarkable. Upper abdomen: Suboptimally evaluated due to low-dose technique and photon starvation. Atherosclerosis.. Musculoskeletal: Minimal degenerative findings.. CT/Low Dose CT Lung Screening IMPRESSION: 1. Lung-RADS category: 2 (benign appearance or behavior, <1% chance of malignan cy); continue annual screening with LDCT. 2. Additional description as above. Recommendations per [employer]. Lung CT Screening Reporting and Data System (Lung-RADS) v. 2022 Reading Location: [id number]
--- OUTSIDE RECORDS SUMMARY | 2025-06-14 07:21 | XMS RPT_ITS | CCD ---
Author Organization [facility] Care Team Providers Care Net Ui Developer Name Role Phone Mago Kahn Unavailable Maribell Miranda Unavailable Unavailable Long, Linda L Unavailable Unavailable Unavailable Unavailable Mago Kahn Unavailable MessengerMaribell Unavailable Unavailable Gravius, Michaeal Unavailable Unavailable Long, Linda L Unavailable Unavailable Unavailable Unavailable Mago Kahn DO Unavailable Maribell Miranda RN Unavailable Unavailable Meli Quigley LPN Unavailable Unavailable Gravius HYDROGEN OPERATOR, Michaela Unavailable Unavailable Ciesa STATE MANAGER, Berenice Unavailable León RNLinda Unavailable Unavailable Unavailable Unavailable Mago Kahn DO Unavailable Shira Echeverria Unavailable Dr. Mago Kahn Primary Care Provider [phone] Belgica Flower Attending Provider Unavailable Dr. Shira Echeverria Attending Provider Dr. Shira Echeverria Referring Provider Dr. Shira Echeverria Other Provider Samantha Mena MA Unavailable Unavailable Mago Kahn DO Attending Unavailable Mago aKhn DO Consulting Unavailable Dr. Mago Kahn Primary Care Provider [phone] Dr. Kenneth Pringle Attending Provider Dr. Mago Kahn Referring Provider Dr. Mago Kahn Other Provider Dr. Mago Kahn Primary Care Provider Dr. Gem Guerra Emergency Provider Dr. Alexei Collins Admit Provider Dr. Alexei Collins Attending Provider Dr. Alexei Collins Other Provider Dr. Kenneth Pringle Attending Provider Dr. Rupa Roberts Attending Provider Dr. Rupa Roberts Other Provider Dewey JUAREZ, India Tomlinson Unavailable [facility] Unavailable Unavailable Unavailable Unavailable Dr. Mago Kahn Primary Care Provider [phone] Dr. Mago Kahn Referring Provider Dr. Josh Shirley Attending Provider Dr. Mago Kahn DO Primary Care Provider [phone] Dr. Mago Kahn DO Referring Provider Dr. Josh Shirley MD Attending Provider Josh Shirley Attending Unavailable Mago Kahn Primary Care Unavailable Mago Kahn Referring Unavailable Josh Shirley Attending Unavailable Mago Kahn Primary Care Unavailable Mago Kahn Referring Unavailable Allergies Allergy Classification Reported Allergen(s) Allergy Type Date of Onset Reaction(s) Facility (10 sources) Penicillins Allergy to substance 2 PT UNSURE OF REACTION, Rash [facility] (1 source) Penicillins Drug allergy (disorder) 5 [facility] Repository Medications Current Medications Medication Drug Class(es) Dates Sig (Normalized) Sig (Original) amLODIPine 10 mg oral tablet (7 sources) Dihydropyridine Calcium Channel Julee Start: 02-04-2023 take 1 tablet by mouth once daily Amlodipine 10 mg tablet Active 10 mg PO DAILY February 04, 2023 12:00am aspirin 81 mg oral capsule (20 sources) Platelet Aggregation Inhibitor, Nonsteroidal Anti-inflammatory Drug Start: 03-06-2023 take 1 tablet by mouth once daily aspirin 81 mg oral capsule 1 (one) Tablet daily for 0 days Quantity: 30 {Tablet} Refills: 0 Ordered: 06-Mar-2023 Criss DUNN Mago CrissMago donaldson DO Start : 06-Mar-2023 Active Start: 03-03-2023 take 1 capsule by mo ut once daily aspirin 81 mg oral capsule 1 (one) capsule daily for 0 days Quantity: 30 {Capsule} Refills: 0 Ordered: 03-Mar-2023 Criss DUNN Mago Criss DO, Mago Start : 03-Mar-2023 Active Start: 02-12-2023 take 1 capsule by mo ut once daily aspirin 81 mg oral capsule 1 (one) capsule daily for 0 days Quantity: 30 {Capsule} Refills: 0 Ordered: 12-Feb-2023 India Palomo MD Start : 12-Feb-2023 Active Start: 02-04-2023 [facility] Aspirin 81 mg tablet,chewable Active 81 mg PO DAILY February 04, 2023 12:00am Start: 04-01-2006 End: 12-30-2007 take 1 tablet by mouth once daily ALBERTSONS BUFFERED ASPIRIN, 325MG (Oral Tablet) 1 (one) Tablet Daily for 0 days Refills: 0 Ordered: 01-Apr-2006 Maribell Miranda RN Start : 01-Apr-2006 End : 30-Dec-2007 Inactive atorvastatin 40 mg oral tablet (7 sources) HMG-CoA Reductase Inhibitor Start: 02-04-2023 take 1 tablet by mouth once daily Atorvastatin 40 mg tablet Active 40 mg PO DAILY February 04, 2023 12:00am clopidogrel 75 mg oral tablet (20 sources) P2Y12 Platelet Inhibitor Start: 02-04-2023 take 1 tablet by mouth once daily Clopidogrel (Plavix) 75 mg tablet Active 75 mg PO DAILY February 04, 2023 12:00am Start: 10-16-2006 End: 12-30-2007 take 1 tablet by mouth once daily PLAVIX, 75MG (Oral Tablet) 1 (one) Tablet Daily for 0 days Quantity: 30 {Tablet} Refills: 1 Ordered: 16-Oct-2006 Maribell Miranda RN Start : 16-Oct-2006 End : 30-Dec-2007 Inactive Completed/Discontinued Medications Medication Drug Class(es) Dates Sig (Normalized) Sig (Original) No current medicines at this time (6 sources) No current medicines at this time Active omeprazole 40 mg delayed release oral capsule (16 sources) Proton Pump Inhibitor Start: 09-04-2022 take 1 capsule by mouth once daily omeprazole 40 mg oral capsule,delayed release (enteric coated) 1 (one) capsule qd for 0 days Quantity: 30 {Capsule} Refills: 1 Ordered: 04-Sep-2022 Mago Kahn DO CrissMago donaldson DO Start : 04-Sep-2022 Active Start: 05-07-2022 take 1 capsule by [facility] once daily as needed for gastroesophageal reflux disease Omeprazole 20 mg Capsule,Delayed Release(Dr/Ec) Active 20 mg PO DAILY as needed for heartburn May 07, 2022 1:00am predniSONE 10 mg oral tablet (13 sources) Start: 10-14-2011 End: 10-21-2011 take 3 tablets by mouth once daily PREDNISONE, 10MG (Oral Tablet) 3 (three) Tablet daily for 7 days Quantity: 21 {Tablet} Refills: 0 Ordered: 14-Oct-2011 Melinda Jordan Start : 14-Oct-2011 End : 21-Oct-2011 Inactive Comments: with Comment on above: with Problems Active Problems Problem Classification Problem Date Documented Date Episodic/Chronic Administrative/social admission (20 sources) Administrative reason for encounter; Translations: [Other general medical examination for administrative purposes] Resolved: 11-22-2008 11-22-2008 Episodic Alcohol-related disorders (6 sources) Alcohol abuse; Translations: [Alcohol abuse, uncomplicated] 02-12-2023 Chronic Comment on above: drink 6-8 beers went over CAGE talk about must lower to less then 3 a day and if cannot or CAGE questions. Cardiac dysrhythmias (8 sources) Tachycardia; Translations: [Tachycardia, unspecified] 02-03-2023 Episodic Disorders of lipid metabolism (20 sources) Hyperlipidemia; Translations: [Hyperlipidemia] 06-28-2018 Chronic Comment on above: hi HDL and good rati o hi HDL and good rati o now with Kwon and had tia on statin Essential hypertension (14 sources) Hypertensive disorder; Translations: [Essential (primary) hypertension] 02-03-2023 Chronic Fluid and electrolyte disorders (8 sources) Acute hyponatremia; Translations: [Hypo-osmolality and hyponatremia] 02-03-2023 Episodic Immunizations and screening for infectious disease (20 sources) Need for prophylactic vaccination and inoculation against influenza; Translations: [Needs influenza immunization] 01-23-2021 Episodic Nonspecific chest pain (12 sources) Tight chest; Translations: [Chest tightness] 09-04-2022 Episodic Occlusion or stenosis of precerebral arteries (6 sources) Carotid artery stenosis; Translations: [Carotid stenosis] 02-12-2023 Chronic Other circulatory disease (20 sources) Aorta palpable; Translations: [Palpable abd. aorta] 06-25-2018 Episodic Comment on above: pulsatile Other circulatory disease (20 sources) Elevated blood pressure; Translations: [Elevated blood pressure reading] Resolved: 01-24-2022 06-25-2018 Episodic Other connective tissue disease (18 sources) Pain in left foot; Translations: [Foot pain, left] Resolved: 01-24-2022 01-23-2021 Episodic Other disorders of stomach and duodenum (12 sources) Indigestion; Translations: [Indigestion] 09-04-2022 Episodic Other lower respiratory disease (6 sources) Apnea; Translations: [Witnessed episode of apnea] 02-12-2023 Episodic Comment on above: seen in hospital and recommend sleep test pt want to wait Other nervous system disorders (7 sources) Paresthesia; Translations: [Paresthesia of skin] 02-03-2023 Episodic Other nervous system disorders (1 source) Paresthesia of skin; Translations: [Disturbance of skin sensation] 02-04-2023 Episodic Other non-traumatic joint disorders (20 sources) Arthralgia of the ankle and/or foot; Translations: [Pain in joint involving ankle and foot, unspecified laterality] Resolved: 04-25-2019 06-25-2018 Episodic Other screening for suspected conditions (not mental disorders or infectious disease) (20 sources) Screening status; Translations: [Encounter for screening for malignant neoplasm of prostate (Renamed from Screening for prostate cancer)] 01-23-2021 Episodic Other skin disorders (20 sources) Eruption; Translations: [Rash] Resolved: 05-28-2017 05-28-2017 Episodic Peripheral and visceral atherosclerosis (20 sources) Atherosclerosis of [place] arteries of the extremities, unspecified; Translations: [Atherosclerosis of [place] arteries of the extremities, unspecified] 06-25-2018 Chronic Residual codes; unclassified (3 sources) Hypersomnia; Translations: [Hypersomnia, unspecified] 07-23-2023 Chronic Residual codes; unclassified (2 sources) Hypersomnia, unspecified; Translations: [Hypersomnia, unspecified] 07-23-2023 Chronic Residual codes; unclassified (20 sources) Family history of stroke; Translations: [Family history of stroke (cerebrovascular)] 06-25-2018 Episodic Comment on above: check homocysteine l evels and lipoprot a levels-- pt will investigate more h/o on etiology of her cva ?? before draw all hypercog lab work Residual codes; unclassified (20 sources) Body mass index (BMI) 23.0-23.9, adult; Translations: [Body mass index (BMI) 22.0-22.9, adult] Resolved: 04-25-2019 05-28-2017 Episodic Residual codes; unclassified (2 sources) Needs influenza immunization; Translations: [Need for prophylactic vaccination and inoculation against influenza] 06-25-2018 Episodic Residual codes; unclassified (19 sources) Current non-smoker ; Translations: [Current nonsmoker] 04-25-2019 Episodic Residual codes; unclassified (20 sources) Non-smoker; Translations: [Non-smoker] 01-23-2021 Episodic Residual codes; unclassified (20 sources) Tobacco user; Translations: [Tobacco abuse] Resolved: 03-31-2016 03-31-2016 Episodic Residual codes; unclassified (12 sources) FH: Cardiovascular disease; Translations: [Family history of cardiovascular disease] 09-04-2022 Episodic Comment on above: PR in 50's- grandfat her Transient cerebral ischemia (11 sources) Transient cerebral ischemia; Translations: [TIA (transient ischemic attack)] 02-12-2023 Chronic Comment on above: 14 day event monitor on to rule out afib echo done. Unclassified (11 sources) Elevated blood pressure reading Unclassified (20 sources) Unclassified (20 sources) Current non-smoker ; Translations: [Current nonsmoker] 06-25-2018 Unclassified (12 sources) Rash (782.1) Unclassified (13 sources) BMI 22.0-22.9, adult; Translations: [Body mass index 20-24 - normal] Resolved: 04-25-2019 04-25-2019 Unclassified (6 sources) Palpable abd. aorta Past or Other Problems Problem Classification Problem [...] Results Test Name Value Interpretation Reference Range Facility Neurology Visit Reporton Neurology Visit Report [facility] [address] [place] [address], [address] [place] [address] OFFICE VISIT Date of Service: 11/15/24 MR#: [id number] Acct: [id number] Name: АЛЕКСАНДР CRZU Rep #: [id number] : 1970 Provider: Dr. Josh andersen MD Age/Sex: 54/M Location: [facility] Status: Signed HPI HPI Chief Complaint: Details: Interim History: Александр returns for follow-up visit. He has a history of hypertension, prediabetes mellitus, and hyperlipidemia. In January 2023, he began to experience episodes of right-sided facial and right upper extremity numbness and tingling. These episodes did not occur daily. Initially the episodes lasted several seconds, though over time they increased in duration. He then had an episode of right-sided facial and right upper extremity numbness and tingling that lasted for hours and presented to the emergency room. He was diagnosed with a TIA. A head MRI revealed mild bilateral periventricular and subcortical white matter chronic small vessel ischemic disease; no acute pathology was identified. No hemodynamically significant stenosis was noted on a head and neck CTA. He was noted to have hypertension and hyperlipidemia. Aspirin, clopidogrel, atorvastatin and amlodipine were initiated. He developed easy bruising. He then discontinued clopidogrel and no longer has easy bruising. He is tolerating aspirin well. Since his hospitalization in January 2023 he has had no further symptoms suggestive of recurrent TIA. He does not have any history of cerebrovascular ischemia prior to 2022. He denied having weakness, vision change, headaches or neck pain. He had hyponatremia at the time of his hospital presentation in January 2023 (serum sodium 128 on 02/03/2023). Hospital records from January 2023 report that the patient had a history of daily alcohol use though he was vague with regard to the amount of alcohol he consumed. He slipped and had a fall in April 2022 and sustained a brief concussion. He resumed his activities that day. He did not have numbness, weakness, vision change or dizziness. Previously, he had been noted by his to have apneic episodes during sleep; the patient now states that this has not been observed recently. He has been noted to snore at night. An unattended sleep study was unremarkable. He does not nap during the day. He generally feels adequately rested when he awakens in the morning. His evaluation for hypercoagulable state was unremarkable. His last lipid profile available for review of (July 2023) was unremarkable. Physical Exam: Neuro: The patient is awake and alert and responds appropriately; speech is fluent Neck: No bruits Heart: Regular rhythm and rate Supplemental Info Head CT (02/03/2023): FINDINGS: Normal soft tissue structures. Normal calvarium. Normal size ventricles and extra-axial spaces for the patient''s age. Normal white matter tracts of the cerebral hemispheres. Normal basal ganglia and thalami. Normal brainstem. Normal cerebellum. There is no intracranial hemorrhage. There are no findings of an acute ischemic infarction. Minimal degree of mucosal thickening of the maxillary sinuses. IMPRESSION: Normal unenhanced CT scan of the brain. These images were reviewed on 07/23/2023. Head and neck CTA (02/03/2023): FINDINGS: Normal bilateral petrous carotid arteries. There [...] There is no demonstrated aneurysm of the [place]. There is no demonstrated abnormality [...] left subclavian artery. RIGHT CAROTID ARTERIES: Normal righ (more content not included)... Normal [facility] Neurology Visit Reporton Neurology Visit Report [facility] [address], [address] [place] [address] OFFICE VISIT Date of Service: 11/26/23 MR#: [id number] Acct: [id number] Name: АЛЕКСАНДР CRUZ Rep #: [id number] : 1970 Provider: Dr. Josh andersen MD Age/Sex: 53/M [place] [facility] [place]: Signed Intake Vital Signs 07/23/23 09:51 11/26/23 15:01 Height 5 ft 8 in 5 ft 8 in Weight: 154 lb 6 oz 159 lb 6 oz BMI 23.4 24.2 BP 130/78 H 120/70 Blood Pressure Location Lt brachial Lt brachial Position Sitting Sitting Respiration 17 17 Pulse 91 89 Pulse Source Monitor Monitor Temp 98.6 F 98.6 F Temp Source Temporal Temporal Pulse Oximetry (%) 97 97 Oxygen Delivery Method room air room air Intake Visit Reasons: 4 M FU Chief Complaint: Vp Account Director Required: No Accompanied by: Allergies Penicillins Adverse Reaction (Intermediate, Verified 11/26/23 15:07) Rash [facility] Medical History (Updated 11/26/23 @ 20:[address] Josh Shirley MD) Hypertension Wears glasses Marijuana use Alcohol use Injury of head and neck Gastric reflux Former smoker Hyperlipidemia, unspecified Surgical History No history of previous surgery Family History Mother CVA (cerebral vascular accident) Father Lung cancer Social History household members: spouse and children housing: house Smoking Status: Former smoker HPI HPI Chief Complaint: Details: Interim History: Александр returns for follow-up visit. He has a history of hypertension and hyperlipidemia. In January 2023, he began to experience episodes of right-sided facial and right upper extremity numbness and tingling. These episodes did not occur daily. Initially the episodes lasted several seconds though over time they increased in duration. He then had an episode of right-sided facial and right upper extremity numbness and tingling that lasted for hours and presented to the emergency room. He was diagnosed with a TIA. A head MRI revealed mild bilateral periventricular and subcortical white matter chronic small vessel ischemic disease; no acute pathology was identified. No hemodynamically significant stenosis was noted on a head and neck CTA. He was noted to have hypertension and hyperlipidemia. Aspirin, clopidogrel, atorvastatin and amlodipine were initiated. Clopidogrel was discontinued after 3 weeks however he subsequently obtained refills of this medication and is currently taking clopidogrel. He reports having easy bruising. Since his hospitalization in January 2023 he has had no further symptoms suggestive of recurrent TIA. He does not have any history of cerebrovascular ischemia prior to 2022. He denied having weakness, vision change, headaches or neck pain. He had hyponatremia at the time of his hospital presentation in January 2023 (serum sodium 128 on 02/03/2023). Hospital records from January 2023 report that the patient had a history of daily alcohol use though he was vague with regard to the amount of alcohol he consumed. He slipped and had a fall in April 2022 and sustained a brief concussion. He resumed his activities that day. He did not have numbness, weakness, vision change or dizziness. He occasionally naps during the day and has some hypersomnia. He has been noted by his to have apneic episodes during sleep. He has been noted to snore at night. An unattended sleep study was unremarkable. His evaluation for hypercoagulable state was unremarkable. His last lipid profile was unremarkable. Physical Exam: Neuro: The patient is awake and alert and responds appropriately; speech is fluent Neck: No bruits Heart: Regular rhythm and rate Supplemental Info Head CT (02/03/2023): FINDINGS: Normal soft tissue structures. Normal calvarium. Normal size ventricles and extra-axial spaces for the patient''s age. Normal white matter tracts of the cerebral hemispheres. Normal basal ganglia and thalami. Normal brainstem. Normal cerebellum. There is no intracranial hemorrhage. There are no findings of an acute ischemic infarction. Minimal degree of mucosal thickening of the maxillary sinuses. IMPRESSION: Normal unenhanced CT scan of the brain. These images were reviewed on 07/23/2023. Head and neck CTA (02/03/2023): FINDINGS: Normal bilateral petrous carotid arteries. There is calcified plaque formation of the right cavernous carotid artery, without a cross-sectional luminal stenosis. There is calcified plaque formation of the left cavernous carotid artery, without a cross-sectional luminal stenosis. Normal right A1 segments of the anterior cerebral artery. Normal left A1 segments of the anterior cerebral artery. Normal intact anterior communicating artery (ACOM). (more content not included)... Normal [facility] Basophil percentageOrdered B y: Josh Shirley on 08-13-2023 Bilirubin [Mass/Vol] 0.40 mg/dL 0.20-1.00 [facility] Comment on above: For patients on eltr ombopag therapy, use of Dimension Davey TBIL is not recommended. Chloride [Moles/Vol] 104 mmol/L 98-107 [facility] Cholesterol [Mass/Vol] 143 mg/dL <200 [facility] Comment on above: <200 mg/dL Desirable 200-240 mg/dL Borderline >240 mg/dL High Risk Glucose [Mass/Vol] 96 mg/dL 74-106 [facility] Potassium [Moles/Vol] 3.8 mmol/L 3.5-5.1 [facility] Protein [Mass/Vol] 8.1 g/dL 6.4-8.2 [facility] Sodium [Moles/Vol] 138 mmol/L 136-145 [facility] Triglyceride [Mass/Vol] 82 mg/dL <199 [facility] Comment on above: The drugs N-Acetylcy steine and Metamizole may falsely depress this assay.Serum Triglycerides Reference Interval Normal <150 mg/dL Borderline high 150 - 199 mg/dL High 200 - 499 mg/dL Very High > or = 500 mg/dL Erythrocyte sedimentation ra teOrdered By: Josh Shirley on 08-13-2023 ESR (Bld) [Velocity] 6 mm/h 0-20 [facility] Laboratory - Chemistry and C hemistry - challengeOrdered By: Josh Shirley on 08-13-2023 Albumin/Globulin [Mass ratio] 1.0 {ratio} 0.9-2.4 [facility] ALP [Catalytic activity/Vol] 94 U/L 45-117 [facility] ALT [Catalytic activity/Vol] 26 U/L 16-61 [facility] Cholesterol in HDL [Mass/Vol] 54 mg/dL >40 [facility] Comment on above: The drugs N-Acetylcy steine and Metamizole may falsely depress this assay. Reference Range HDL <40 mg/dL Low HDL Cholesterol HDL >or= 60 mg/dL High HDL Cholesterol Cholesterol in LDL [Mass/Vol] 73 mg/dL 0-130 [facility] CO2 [Moles/Vol] 27.0 mmol/L 21.0-32.0 [facility] Globulin (S) [Mass/Vol] 4.1 g/dL 2.2-4.2 [facility] Urea nitrogen/Creatinine [Mass ratio] 15.2 mg/mg 10-20 [facility] No Panel InformationOrdered By: Josh Shirley on 08-13-2023 Anti-Nuclear Antibody Screen Negative Negative [facility] Comment on above: Performed at: [facility] [address] [id number] Director: Rl Ceron PhD, Phone: [phone] [facility] Antibody Not Reportable [facility] Estimated GFR (MDRD) Amer 95 mL/min >60 [facility] Comment on above: GFR Calc Estimated GFR (MDRD) Non-Af Amer 79 mL/min >60 [facility] Comment on above: Non- GFR Calc CRISTIAN-1 Antibody Not Reportable [facility] PUBLIC SAFETY DISPATCHER Antibody Not Reportable [facility] SM Antibody Not Reportable [facility] SS-A/Ro IgG Antibody Not Reportable [facility] SS-B/La IgG Antibody Not Reportable [facility] VLDL Cholesterol 16 mg/dL 5-40 [facility] Serum DNA double strand anti body assay (units/volume)Ordered By: Josh Shirley on 08-13-2023 DNA double strand Ab Qn (S) Not Reportable [facility] Serum Scl-70 antibody assay (units/volume)Ordered By: Josh Shirley on 08-13-2023 SCL-70 extractable nuclear Ab Qn (S) Not Reportable [facility] Serum or plasma calcium ken urement (mass/volume)Ordered By: Josh Shirley on 08-13-2023 Calcium [Mass/Vol] 9.5 mg/dL 8.5-10.1 [facility] Serum or plasma creatinine m easurement (mass/volume)Ordered By: Josh Shirlye on 08-13-2023 Creatinine [Mass/Vol] 1.05 mg/dL 0.70-1.30 [facility] Comment on above: The validity of the calculated GFR & GFRAA in patients over 70 years has not been determined. Clinical correlation is essential. Serum or plasma urea nitroge n measurement (mass/volume)Ordered By: Josh Shirley on 08-13-2023 Urea nitrogen [Mass/Vol] 16 mg/dL 7-18 [facility] Thin prep Papanicolaou smear with manual screeningOrdered By: Josh Shirley on 08-13-2023 Thin prep Papanicolaou smear with manual screening 4.0 g/dL 3.2-5.0 [facility] [facility] Thin prep Papanicolaou smear with manual screening 28 U/L 15-37 [facility] Thin prep Papanicolaou smear with manual screening 7 5-15 [facility] Basophil percentageOrdered B y: Alexei Collins on 02-04-2023 Chloride [Moles/Vol] 99 mmol/L 98-107 [facility] Glucose [Mass/Vol] 111 mg/dL 74-106 [facility] Comment on above: Fasting Glucose resu lt from 100 to 125 mg/dL suggests IMPAIRED HOMEOSTASIS per A.D.A. criteria. Potassium [Moles/Vol] 3.6 mmol/L 3.5-5.1 [facility] Sodium [Moles/Vol] 132 mmol/L 136-145 [facility] Laboratory - Chemistry and C hemistry - challengeOrdered By: Alexei Collins on 02-04-2023 CO2 [Moles/Vol] 28.0 mmol/L 21.0-32.0 [facility] Urea nitrogen/Creatinine [Mass ratio] 10.0 mg/mg 10-20 [facility] No Panel InformationOrdered By: Alexei Collins on 02-04-2023 Estimated Creatinine Clearance Calc 114.25 ml/min [facility] Estimated GFR (MDRD) Amer 153 mL/min >60 [facility] Comment on above: GFR Calc Estimated GFR (MDRD) Non-Af Amer 126 mL/min >60 [facility] Comment on above: Non- GFR Calc Serum or plasma calcium ken urement (mass/volume)Ordered By: Alexei Collins on 02-04-2023 Calcium [Mass/Vol] 8.9 mg/dL 8.5-10.1 [facility] Serum or plasma creatinine m easurement (mass/volume)Ordered By: Alexei Collins on 02-04-2023 Creatinine [Mass/Vol] 0.70 mg/dL 0.70-1.30 [facility] Comment on above: The validity of the calculated GFR & GFRAA in patients over 70 years has not been determined. Clinical correlation is essential. Serum or plasma urea nitroge n measurement (mass/volume)Ordered By: Alexei Collins on 02-04-2023 Urea nitrogen [Mass/Vol] 7 mg/dL 7-18 [facility] Thin prep Papanicolaou smear with manual screeningOrdered By: Alexei Collins on 02-04-2023 Thin prep Papanicolaou smear with manual screening 5 5-15 [facility] Whole blood hemoglobin A1c/t otal hemoglobin ratio (mass fraction)Ordered By: Rpua Roberts on 02-04-2023 HbA1c (Bld) [Mass fraction] 5.2 % 3.8-5.6 [facility] Comment on above: Normal < 5.7 % Predi abetic 5.7 - 6.4 % Diabetic >or= 6.5 % Please note range changes. Absolute lymphocyte countOrd ered By: Melindaus Guerra on 02-03-2023 Lymphocytes Auto (Unsp spec) [#/Vol] 1.12 10*3/uL 0.83-4.51 [facility] Basophil percentageOrdered B y: Gem Guerra on 02-03-2023 Basophils/100 WBC (Bld) 0.7 % 0-1 [facility] Chloride [Moles/Vol] 93 mmol/L 98-107 [facility] Eosinophils/100 WBC (Bld) 1.1 % 0-5 [facility] Glucose [Mass/Vol] 168 mg/dL 74-106 [facility] Comment on above: Fasting Glucose resu lt greater than or equal to 126 mg/dL suggests DIABETES MELLITUS per A.D.A. criteria. Neutrophils (Bld) [#/Vol] 3.6 10*3/uL 2.0-7.7 [facility] Neutrophils/100 WBC (Bld) 67.8 % 47-70 [facility] Potassium [Moles/Vol] 4.2 mmol/L 3.5-5.1 [facility] Sodium [Moles/Vol] 128 mmol/L 136-145 [facility] WBC (Bld) [#/Vol] 5.4 10*3/uL 4.4-11.0 [facility] Basophil percentageOrdered B y: Alexei Collins on 02-03-2023 Cholesterol [Mass/Vol] 224 mg/dL <200 [facility] Comment on above: <200 mg/dL Desirable 200-240 mg/dL Borderline >240 mg/dL High Risk Triglyceride [Mass/Vol] 133 mg/dL <199 [facility] Comment on above: The drugs N-Acetylcy steine and Metamizole may falsely depress this assay.Serum Triglycerides Reference Interval Normal <150 mg/dL Borderline high 150 - 199 mg/dL High 200 - 499 mg/dL Very High > or = 500 mg/dL Blood erythrocytes count (nu mber/volume)Ordered By: Gem Guerra on 02-03-2023 RBC (Bld) [#/Vol] 4.45 10*6/uL 4.6-6.2 [facility] Blood hemoglobin measurement (mass/volume)Ordered By: Gem Guerra on 02-03-2023 Hemoglobin (Bld) [Mass/Vol] 14.2 g/dL 13.0-16.5 [facility] Blood lymphocytes/100 leukoc ytesOrdered By: Gem Guerra on 02-03-2023 Lymphocytes/100 WBC (Bld) 20.9 % 19-41 [facility] Blood monocytes/100 leukocyt esOrdered By: Gem Guerra on 02-03-2023 Monocytes/100 WBC (Bld) 9.3 % 0-10 [facility] Blood platelet mean volumeOr dered By: Gem Guerra on 02-03-2023 Platelet mean volume (Bld) [Entitic vol] 7.8 fL 6.2-12.0 [facility] Determination of erythrocyte mean corpuscular volume (MCV)Ordered By: Gem Guerra on 02-03-2023 MCV (RBC) [Entitic vol] 88.1 fL 80-94 [facility] Glucose Glucometer (dC) [M ass/Vol]Ordered By: Rupa Roberts on 02-03-2023 Glucose [Mass/Vol] 176 mg/dL 74-106 [facility] Comment on above: MANAGEMENT OF PATIEN T CARE PER NURSING PROTOCOL Hematocrit Auto (Bld) [Volum e fraction]Ordered By: Gem Guerra on 02-03-2023 Hematocrit (Bld) [Volume fraction] 39.2 % 40-54 [facility] INR in Blood by Coagulation assayOrdered By: Gem Guerra on 02-03-2023 INR Coag (Bld) [Relative time] 1.1 {INR} [facility] Laboratory - Chemistry and C hemistry - challengeOrdered By: Gem Guerra on 02-03-2023 CO2 [Moles/Vol] 27.0 mmol/L 21.0-32.0 [facility] Urea nitrogen/Creatinine [Mass ratio] 5.5 mg/mg 10-20 [facility] Laboratory - CoagulationOrde red By: Gem Guerra on 02-03-2023 aPTT Coag (Bld) [Time] 26.1 s 24.1-36.2 [facility] PT Coag (PPP) [Time] 13.8 s 11.7-14.9 [facility] Laboratory - Hematology and Cell countsOrdered By: Gem Guerra on 02-03-2023 Erythrocyte distribution width (RBC) [Entitic vol] 38.2 fL 35.1-43.9 [facility] Erythrocyte distribution width (RBC) [Ratio] 11.8 % 11.6-14.6 [facility] Immature granulocytes/100 WBC (Bld) 0.200 % 0.0-0.9 [facility] Comment on above: IG% - Immature Granu locytes (promyelocytes, myelocytes and metamyelocytes) > 1% indicates that a LEFT SHIFT is Present. MCH (RBC) [Entitic mass] 31.9 pg 27.0-32.0 [facility] Nucleated RBC/100 WBC (Bld) [Ratio] 0 % 0-5 [facility] MCHC Auto (RBC) [Mass/Vol]Or dered By: Gem Guerra on 02-03-2023 MCHC (RBC) [Mass/Vol] 36.2 g/dL 32-36 [facility] No Panel InformationOrdered By: Gem Guerra on 02-03-2023 Estimated Creatinine Clearance Calc 96.50 ml/min [facility] Estimated GFR (MDRD) Amer 113 mL/min >60 [facility] Comment on above: GFR Calc Estimated GFR (MDRD) Non-Af Amer 94 mL/min >60 [facility] Comment on above: Non- GFR Calc Ethyl Alcohol Level < 3.0 mg/dL [facility] Comment on above: The serum:whole bloo d ethanol ratio is approximately 1.14and varies slightly with hematocrit. Medical Alcohol reference interval and critical value innon-tolerant individuals; 50 - 100 Impairment 100 Intoxication 100 - 250 Severe Poisoning 250 - 400 Deep/possible fatal coma Troponin I High Sensitivity 4 pg/mL 3.0-78.0 [facility] Comment on above: Please Note: New Liz t Units and Gender Specific Reference Ranges. For more information see Policy Stat Procedure Davey High Sensitivity Troponin (TNIH) and attachments. Platelets bldOrdered By: Melinda peña Mari on 02-03-2023 Platelets (Bld) [#/Vol] 363 10*3/uL 150-450 [facility] Serum or plasma calcium ken urement (mass/volume)Ordered By: Gem Mari on 02-03-2023 Calcium [Mass/Vol] 9.0 mg/dL 8.5-10.1 [facility] Serum or plasma cholesterol in HDL measurement (mass/volume)Ordered By: Alexei Collins on 02-03-2023 Cholesterol in HDL [Mass/Vol] 71 mg/dL >40 [facility] Comment on above: The drugs N-Acetylcy steine and Metamizole may falsely depress this assay. Reference Range HDL <40 mg/dL Low HDL Cholesterol HDL >or= 60 mg/dL High HDL Cholesterol Serum or plasma cholesterol in VLDL measurement (mass/volume)Ordered By: Alexei Collins on 02-03-2023 Cholesterol in VLDL [Mass/Vol] 27 mg/dL 5-40 [facility] Serum or plasma creatinine m easurement (mass/volume)Ordered By: Gem Mari on 02-03-2023 Creatinine [Mass/Vol] 0.90 mg/dL 0.70-1.30 [facility] Comment on above: The validity of the calculated GFR & GFRAA in patients over 70 years has not been determined. Clinical correlation is essential. Serum or plasma low density lipoprotein (LDL) cholesterol measurement (mass/volume)Ordered By: Alexei Collins on 02-03-2023 Cholesterol in LDL [Mass/Vol] 126 mg/dL 0-130 [facility] Serum or plasma urea nitroge n measurement (mass/volume)Ordered By: Gem Mari on 02-03-2023 Urea nitrogen [Mass/Vol] 5 mg/dL 7-18 [facility] Thin prep Papanicolaou smear with manual screeningOrdered By: Gem Stolltariq on 02-03-2023 Thin prep Papanicolaou smear with manual screening 8 5-15 [facility] No Panel InformationOrdered By: Dr. Kahn on 09-05-2022 Troponin I High Sensitivity 5 pg/mL 3.0-78.0 [facility] Comment on above: Please Note: New Liz t Units and Gender Specific Reference Ranges. For more information see Policy Stat Procedure Davey High Sensitivity Troponin (TNIH) and attachments. LIPID PANEL ([id number])Ordered B y: Washtub Worker Helper on 01-24-2022 Cholesterol [Mass/Vol] 231 mg/dL Abnormal 100-199 [facility]; [facility] Work Phone: Comment on above: PATIENT WAS FASTINGP ERFORMED BY: CB [facility] Owunoy[address] [employer] [place] [id number] Cholesterol in HDL [Mass/Vol] 83 mg/dL Normal [facility]; [facility] Work Phone: Comment on above: PATIENT WAS FASTINGP ERFORMED BY: CB [facility] Omhctn8887 [address] [employer] [place] [id number] Triglyceride [Mass/Vol] 150 mg/dL Abnormal 0-149 [facility]; [facility] Work Phone: Comment on above: PATIENT WAS FASTINGP ERFORMED BY: CB [facility] Nyhzib[address]55 [address] [employer] [place] [id number] LIPID PANEL (56363) 26 mg/dL Normal 5-40 [facility]; [facility] Work Phone: Comment on above: PATIENT WAS FASTINGP ERFORMED BY: CB [facility] Mglgni9303 [address] [employer] [facility]D[employer] [place] [id number] LIPID PANEL (73732) 122 mg/dL Abnormal 0-99 [facility]; [facility] Work Phone: Comment on above: PATIENT WAS FASTINGP ERFORMED BY: CB [facility] Lorndv5764 [address] [employer] [facility] [place] [id number] LIPID PANEL (21758) 1.5 {ratio} Normal 0.0-3.6 Comp rehens[facility]; [facility] Work Phone: Comment on above: LDL/HDL Ratio Men Wo men 1/2 Avg.Risk 1.0 1.5 Avg.Risk 3.6 3.2 2X Avg.Risk 6.2 5.0 3X Avg.Risk 8.0 6.1 PATIENT WAS FASTINGP ERFORMED BY: XUAN Compass DatacentersJFK Medical CenterXcvjum4764 [facility] [id number] PSA (PROSTATE SPECIFIC ANTIG EN) (54035)Ordered By: Washtub Worker Helper on 01-24-2022 Prostate specific Ag [Mass/Vol] 0.3 ng/mL Normal 0.0-4.0 [facility]; [facility] Work Phone: Comment on above: Cyrus ECLIA methodol ogy. .According to the [place] [employer], Serum PSA shoulddecrease and remain at undetectable levels after radicalprostatectomy. The AUA defines biochemical recurrence as an initialPSA value 0.2 ng/mL or greater followed by a subsequent confirmatoryPSA value 0.2 ng/mL or greater.Values obtained with different assay methods or kits cannot be usedinterchangeably. Results cannot be interpreted as absolute evidenceof the presence or absence of malignant disease. PATIENT WAS FASTINGP ERFORMED BY: Compass DatacentersJFK Medical CenterXhlqry3859 [facility] [id number] GLUCOSE ([id number])Ordered By: Russ ystem Switch Operators Supervisor on 05-06-2019 Glucose [Mass/Vol] 89 mg/dL Normal 65-99 [facility]; [facility] Work Phone: Comment on above: Test(s) 594923-MJL-W ; 754332-JQH-B; 820173-ITD-X; 541394-Pwpksdvidxbdw; 858535-Ndscdqpadju, Total; 992124-ZOA-M (Total);162699-Rhxjd LDL-P; 961598-ARJ Size; 745623-AM-NN Scorewas developed and its performance characteristics determinedby [facility]. It has not been cleared or approved by the Foodand Drug Administration.PATIENT WAS FASTINGPERFORMED BY: [employer] [id number] BY: Pya AnalyticsJFK Medical CenterBuilip9362 [facility] [id number] NMR Profile (69906)Ordered B y: Washtub Worker Helper on 05-06-2019 Cholesterol [Mass/Vol] 233 mg/dL Abnormal 100-199 [facility]; [facility] Work Phone: Comment on above: Test(s) 413353-CWD-G ; 203274-OWD-D; 397186-BNL-D; 979789-Tahckvzgbqnig; 804126-Yyudzebuwkr, Total; 001583-HPD-A (Total);975827-Qjklq LDL-P; 938158-OEO Size; 219536-XG-QT Scorewas developed and its performance characteristics determinedby [facility]. It has not been cleared or approved by the Foodand Drug Administration.PATIENT WAS FASTINGPERFORMED BY: Verican [facility] [id number] BY: [employer]70 [employer] includes the [facility] [id number] Lipoprotein.alpha [Moles/Vol] 39.5 umol/L Normal [facility]; [facility] Work Phone: Comment on above: Test(s) 876105-EGD-O ; 939367-LUU-N; 825961-KLQ-U; 733719-Jzdlvaijnyebf; 809170-Baptfxhfwur, Total; 527711-FNI-G (Total);500565-Ectkw LDL-P; 739266-JGN Size; 696298-WJ-VG Scorewas developed and its performance characteristics determinedby [facility]. It has not been cleared or approved by the Foodand Drug Administration.PATIENT WAS FASTINGPERFORMED BY: [employer]erican [facility] [id number] BY: [employer]70 [facility] [id number] Lipoprotein.beta.subp article [Entitic length] 21.9 nm Normal [facility]; [facility] Work Phone: Comment on above: INTERPRETATIVE INFORMATION PARTICLE CONCENTRATION AND SIZE <--Lower CVD Risk Higher CVD Risk--> LDL AND HDL PARTICLES Percentile in Reference Population HDL-P (total) High 75th 50th 25th Low >34.9 34.9 30.5 26.7 <26.7 . Small LDL-P Low 25th 50th 75th High <117 117 527 839 >839 . LDL Size <-Large (Pattern A)-> <-Small (Pattern B)-> 23.0 20.6 20.5 19.0 Small LDL-P and LDL Size are associated with CVD risk, but not afterLDL-P is taken into account. Test(s) 201461-CLB-A ; 253611-DJJ-V; 474787-APJ-I; 682409-Yuyjojhdpdlfa; 075866-Ozzyssprucq, Total; 864231-ESW-O (Total);124225-Wqgat LDL-P; 871578-BAC Size; 677128-XA-KN Scorewas developed and its performance characteristics determinedby [facility]. It has not been cleared or approved by the Foodand Drug Administration.PATIENT WAS FASTINGPERFORMED BY: [facility] [address] [id number] BY: [employer] Vfxnqk8995 [facility] [id number] Lipoprotein.beta.subp article [Moles/Vol] 875 nmol/L Normal Comprehensiv e [facility]; [facility] Work Phone: Comment on above: Low < 1000 Moderate 1000 - 1299 Borderline-High 1300 - 1599 High 1600 - 2000 Very High > 2000 Test(s) 486576-KRX-C ; 238362-JES-P; 953936-WTA-C; 312345-Rfgxfroyshyui; 042780-Asosonzmxdh, Total; 198368-EKR-Y (Total);197989-Ddksi LDL-P; 301594-RHI Size; 586814-KK-CF Scorewas developed and its performance characteristics determinedby [facility]. It has not been cleared or approved by the Foodand Drug Administration.PATIENT WAS FASTINGPERFORMED BY: [employer] [address] [id number] BY: [employer] Fnwski3185 [facility] [id number] Lipoprotein.beta.subp article.small [Moles/Vol] 94 nmol/L Normal [facility]; [facility] Work Phone: Comment on above: Test(s) 778565-MNM-V ; 709865-YUM-X; 481640-MKG-Y; 615510-Xualorlxsqnmr; 143702-Eyqzkzjsdth, Total; 391964-EGM-L (Total);710616-Sxstm LDL-P; 018718-FDT Size; 084712-BX-SZ Scorewas developed and its performance characteristics determinedby [facility]. It has not been cleared or approved by the Foodand Drug Administration.PATIENT WAS FASTINGPERFORMED BY: [employer] [address] [id number] BY: Pya AnalyticsCHRISTUS St. Vincent Physicians Medical CenterCanbdi6412 [facility] [id number] Triglyceride [Mass/Vol] 152 mg/dL Abnormal 0-149 [facility]; [facility] Work Phone: Comment on above: Test(s) 559741-TQK-B ; 062764-XTJ-R; 632552-MTX-O; 283329-Tlddiavjineie; 814116-Parnyuhipun, Total; 723242-KVV-Q (Total);193695-Btnxn LDL-P; 910259-NNY Size; 471436-VT-DB Scorewas developed and its performance characteristics determinedby [facility]. It has not been cleared or approved by the Foodand Drug Administration.PATIENT WAS FASTINGPERFORMED BY: [employer] [address] [id number] BY: Pya AnalyticsCHRISTUS St. Vincent Physicians Medical CenterZzefhl2781 [facility] [id number] NMR Profile (50633) 119 mg/dL Abnormal 0-99 [facility]; [facility] Work Phone: Comment on above: . Optimal < 100 Abov e optimal 100 - 129 Borderline 130 - 159 High 160 - 189 Very high > 189 .LDL-C is inaccurate if patient is non-fasting. Test(s) 456762-ZLT-R ; 104804-YHD-S; 249461-MPK-E; 292435-Cgzfuwuyzntgt; 317056-Petremhjtwi, Total; 878781-JIB-S (Total);464518-Oxpmi LDL-P; 763894-FIO Size; 658864-NY-JP Scorewas developed and its performance characteristics determinedby [facility]. It has not been cleared or approved by the Foodand Drug Administration.PATIENT WAS FASTINGPERFORMED BY: Verican [facility] [id number] BY: [employer]70 MineralRightsWorldwide.comClark Regional Medical Center [id number] NMR Profile (22538) 84 mg/dL Normal [facility]; [facility] Work Phone: Comment on above: Test(s) 647726-WOE-Z ; 299656-YDT-Q; 442401-DWX-W; 689928-Tcgefzruhlkiz; 247121-Jravwvbcjbw, Total; 677526-AIB-C (Total);293837-Kpwif LDL-P; 816894-GXO Size; 610869-RO-YM Scorewas developed and its performance characteristics determinedby [facility]. It has not been cleared or approved by the Foodand Drug Administration.PATIENT WAS FASTINGPERFORMED BY: MediaMath[address] [id number] BY: [employer]6370 Cuutio SoftwareECU Health [facility] Hospital [id number] PSA (PROSTATE SPECIFIC ANTIG EN) (V76.44)Ordered By: Washtub Worker Helper on 05-06-2019 Prostate specific Ag [Mass/Vol] 0.3 ng/mL Normal 0.0-4.0 [facility]; [facility] Work Phone: Comment on above: Cyrus ECLIA methodol ogy. .According to the [place] [employer], Serum PSA shoulddecrease and remain at undetectable levels after radicalprostatectomy. The AUA defines biochemical recurrence as an initialPSA value 0.2 ng/mL or greater followed by a subsequent confirmatoryPSA value 0.2 ng/mL or greater.Values obtained with different assay methods or kits cannot be usedinterchangeably. Results cannot be interpreted as absolute evidenceof the presence or absence of malignant disease. Test(s) 946290-KEF-T ; 459397-UBW-U; 288965-ZRY-X; 912003-Qqikxqwpnmyvr; 677869-Buwxwcpisgu, Total; 676122-GLL-F (Total);301510-Awewp LDL-P; 597359-GHL Size; 263730-WL-LV Scorewas developed and its performance characteristics determinedby [facility]. It has not been cleared or approved by the Foodand Drug Administration.PATIENT WAS FASTINGPERFORMED BY: [employer]ya [employer] [id number] BY: Pya AnalyticsJFK Medical CenterWwjisz8226 [place] Re[employer]ent MedicalCount includes the [facility] [id number] GLUCOSE ([id number])Ordered By: S ystem Switch Operators Supervisor on 06-25-2018 Glucose mass conc 98 mg/dL Normal 65-99 Compreh ensive [facility] Work Phone: Comment on above: PATIENT WAS FASTINGP ERFORMED BY: Pya AnalyticsJFK Medical CenterJlodgb7414 [facility] [id number] LIPID PANEL ([id number])Ordered B y: Washtub Worker Helper on 06-25-2018 Cholesterol in HDL mass conc 82 mg/dL Normal [facility] Work Phone: Comment on above: PATIENT WAS FASTINGP ERFORMED BY: Pya AnalyticsJFK Medical CenterOxccal0928 [place] [employer] MedicalCount includes the [facility] [id number] Cholesterol in LDL mass conc 136 mg/dL Abnormal 0-99 [facility] Work Phone: Comment on above: PATIENT WAS FASTINGP ERFORMED BY: Pya AnalyticsJFK Medical CenterNethyq8321 [place] [employer] MedicalCount includes the [facility] [id number] Cholesterol in LDL/Cholesterol in HDL mass ratio 1.7 {ratio} Normal 0.0-3.6 [facility] Work Phone: Comment on above: LDL/HDL Ratio Men Wo men 1/2 Avg.Risk 1.0 1.5 Avg.Risk 3.6 3.2 2X Avg.Risk 6.2 5.0 3X Avg.Risk 8.0 6.1 PATIENT WAS FASTINGP ERFORMED BY: XUAN [employer] Sizycd9445 [facility] [id number] Cholesterol in VLDL mass conc 29 mg/dL Normal 5-40 [facility] Work Phone: Comment on above: PATIENT WAS FASTINGP ERFORMED BY: XUAN LabCoJFK Medical CenterDrpebi0202 [address] [facility] [id number] Cholesterol mass conc 247 mg/dL Abnormal 100-199 Com prehensive Internal Medicine Work Phone: Comment on above: PATIENT WAS FASTINGP ERFORMED BY: XUAN LabHelen [facility]6370 [facility] [id number] Triglyceride mass conc 143 mg/dL Normal 0-149 [facility] Work Phone: Comment on above: PATIENT WAS FASTINGP ERFORMED BY: XUAN LabHelen [facility] Hospital6370 [facility] [id number] GLUCOSE ([id number])Ordered By: S ystem Switch Operators Supervisor on 05-28-2017 Glucose mass conc 81 mg/dL Normal 65-99 Compreh ensive [facility] Work Phone: Comment on above: PATIENT WAS FASTINGP ERFORMED BY: XUAN LabHelen [facility] Hospital6370 [facility] [id number] LIPID PANEL ([id number])Ordered B y: Washtub Worker Helper on 05-28-2017 Cholesterol in HDL mass conc 95 mg/dL Normal [facility] Work Phone: Comment on above: PATIENT WAS FASTINGP ERFORMED BY: [facility] Ewjfdp6730 [address] [facility] [place] [id number] Cholesterol in LDL mass conc 115 mg/dL Abnormal 0-99 [facility] Work Phone: Comment on above: PATIENT WAS FASTINGP ERFORMED BY: [facility] Uzvxho5942 [place] [facility] [place] [id number] Cholesterol in LDL/Cholesterol in HDL mass ratio 1.2 {ratio_units} Normal 0.0-3.6 [facility] Work Phone: Comment on above: LDL/HDL Ratio Men Wo men 1/2 Avg.Risk 1.0 1.5 Avg.Risk 3.6 3.2 2X Avg.Risk 6.2 5.0 3X Avg.Risk 8.0 6.1 PATIENT WAS FASTINGP ERFORMED BY: XUAN [facility] [id number] [facility] [employer] includes the [facility] [id number] Cholesterol in VLDL mass conc 24 mg/dL Normal 5-40 [facility] Work Phone: Comment on above: PATIENT WAS FASTINGP ERFORMED BY: XUAN [facility] [id number] Jim[facility] [id number] Cholesterol mass conc 234 mg/dL Abnormal 100-199 [facility] prehensive Internal Medicine Work Phone: Comment on above: PATIENT WAS FASTINGP ERFORMED BY: XUAN [facility] [id number] [facility] [id number] Triglyceride mass conc 118 mg/dL Normal 0-149 [facility] Work Phone: Comment on above: PATIENT WAS FASTINGP ERFORMED BY: XUAN [facility] [id number] [facility] [id number] GLUCOSE ([id number])Ordered By: S ystem Switch Operators Supervisor on 04-01-2016 Glucose mass conc 88 mg/dL Normal 65-99 Compreh ensive Internal Medicine Work Phone: Comment on above: PATIENT WAS FASTINGP ERFORMED BY: XUAN [facility] [id number] [facility] [id number] Lipid Panel ([id number])Ordered B y: Washtub Worker Helper on 04-01-2016 Cholesterol in HDL mass conc 89 mg/dL Normal [facility] Work Phone: Comment on above: According to ATP-III Guidelines, HDL-C >59 mg/dL is considered anegative risk factor for CHD. PATIENT WAS FASTINGP ERFORMED BY: XUAN [facility] [id number] Jimenez [facility] [id number] Cholesterol in LDL mass conc 124 mg/dL Abnormal 0-99 [facility] Work Phone: Comment on above: PATIENT WAS FASTINGP ERFORMED BY: Synthorx [facility] [id number] [place] [employer] includes the [facility] [id number] Cholesterol in LDL/Cholesterol in HDL mass ratio 1.4 {ratio_units} Normal 0.0-3.6 [facility] Work Phone: Comment on above: LDL/HDL Ratio Men Wo men 1/2 Avg.Risk 1.0 1.5 Avg.Risk 3.6 3.2 2X Avg.Risk 6.2 5.0 3X Avg.Risk 8.0 6.1 PATIENT WAS FASTINGP ERFORMED BY: Synthorx [facility] [id number] [place] [employer] includes the [facility] [id number] Cholesterol in VLDL mass conc 21 mg/dL Normal 5-40 [facility] Work Phone: Comment on above: PATIENT WAS FASTINGP ERFORMED BY: [facility] [id number] [facility] [id number] Cholesterol mass conc 234 mg/dL Abnormal 100-199 [facility] prehensive Internal Medicine Work Phone: Comment on above: PATIENT WAS FASTINGP ERFORMED BY: Synthorx LabAttorneyFeerp [id number] [facility] [id number] Triglyceride mass conc 103 mg/dL Normal 0-149 [facility] Work Phone: Comment on above: PATIENT WAS FASTINGP ERFORMED BY: Synthorx LabAttorneyFeerp [id number] [facility] [id number] PSA (PROSTATE SPECIFIC ANTIG EN) (V76.44)Ordered By: Washtub Worker Helper on 04-01-2016 Prostate specific Ag mass conc 0.3 ng/mL Normal 0.0-4.0 [facility] Work Phone: Comment on above: Cyrus ECLIA methodol ogy. .According to the [place] [employer], Serum PSA shoulddecrease and remain at undetectable levels after radicalprostatectomy. The AUA defines biochemical recurrence as an initialPSA value 0.2 ng/mL or greater followed by a subsequent confirmatoryPSA value 0.2 ng/mL or greater.Values obtained with different assay methods or kits cannot be usedinterchangeably. Results cannot be interpreted as absolute evidenceof the presence or absence of malignant disease. PATIENT WAS FASTINGP ERFORMED BY: XUAN LabHelen [facility]6370 [facility] [id number] ANKLE,MIN 3 VIEWSOrdered By: Washtub Worker Helper on 04-07-2011 ANKLE,MIN 3 VIEWS See Note Normal Compreh ensive Internal Medicine Work Phone: Comment on above: PROCEDURE: X-RAY - L EFT ANKLE REASON FOR EXAM: Male, 41 years old. The patient presented with ankleand heel pain following a twisting injury. TECHNIQUE: Three views of the ankle. COMPARISON: None. FINDINGS: Normal visualized distal tibia and medial malleolus. Normal visualizeddistal fibula and lateral malleolus. Normal tibiotalar articulation and ankle mortise. Normal visualized talus. Normal visualized calcaneus. The visualized subtalar, talonavicular, calcaneocuboid and tarsalarticulations are normal. IMPRESSION:Normal x-ray examination of the ankle. Dictated on 04/07/111146 by Dave Davenport MD on 04/07/111300 by ITS IMPORTSign by Jasiel Davenport MD on 04/07/111300 Sign by: Jasiel Davenport MD PROCEDURE: X-RAY - L EFT FOOT CLINICAL: Male, 41 years old. The patient presented with painfollowinga twisting injury. TECHNIQUE: Three views of the foot. COMPARISON: None. FINDINGS:Normal talus, calcaneus, and tarsal bones. Normal visualized subtalar, talonavicular, calcaneocuboid, tarsal andtarsometatarsal articulations. Normal metatarsi. Normal metatarsophalangeal joint of the great toe. Normal tibial andfibular sesamoid bones. Normal interphalangeal joint of the great toe.Normal phalanges of the great toe. Normal second through fifth metatarsophalangeal joints. Normalinterphalangeal joints of the lesser toes. Normal phalanges of thelessertoes. IMPRESSION:Normal x-ray examination of the foot. Dictated on 04/07/111146 by Cass Davenport MDbed on 04/07/11 1301 by ITS IMPORTSign by Jasiel Davenport MD on 04/07/11 1302 Sign by: Jasiel Davenport MD HOMOCYST [id number] By: Russ ystem Switch Operators Supervisor on 12-30-2007 HOMOCYST [id number] 12.4 umol/L Normal 0.0-15.0 Comprehe nsive Internal Medicine Work Phone: LIPIDOrdered By: Sukhjinder pereira on 12-30-2007 Cholesterol in HDL mass conc 60 mg/dL Normal [facility] Work Phone: Comment on above: Reference Range HDL <40 mg/dL Low HDL Cholesterol HDL >or= 60 mg/dL High HDL Cholesterol Cholesterol in LDL mass conc 128 mg/dL Normal 0-130 [facility] Work Phone: Cholesterol in VLDL mass conc 7 mg/dL Normal 5-40 [facility] Work Phone: Cholesterol mass conc 195 mg/dL Normal Com prehensive Internal Medicine Work Phone: Comment on above: <200 mg/dL Desirable 200-240 mg/dL Borderline >240 mg/dL High Risk Triglyceride mass conc 37 mg/dL Normal [facility] Work Phone: Comment on above: Serum Triglycerides Reference Interval Normal <150 mg/dL Borderline high 150 - 199 mg/dL High 200 - 499 mg/dL Very High > or = 500 mg/dL LIPOPROT [id number] By: Russ watttem Switch Operators Supervisor on 12-30-2007 Protein mass conc 6 mg/dL Normal 0-30 Compreh ensive Internal Medicine Work Phone: Comment on above: Desirable: <20 Borde rline high risk: 20 - 30 High risk: 31 - 50 Very high risk: >50 . Note: Values >30 may indicate independent risk factor for CHD. Significance of high Lp(a) in non-white populations must be evaluated with caution.Performed At: [facility] [place], [place] [id number] Vital Signs Date Time Vital Sign Value Performing Clinician Facility 11-15-2024 14:02-0400 Body height 172.[address] Mago Kahn DO Work Phone: [facility] 11-15-2024 14:02-0400 Body mass index (BMI) [Ratio] 23.4 kg/m2 Dr. Mago Kahn DO Work Phone: [facility] 11-15-2024 14:02-0400 Body temperature 98.6 [degF] Dr. Mago Kahn DO Work Phone: [facility] 11-15-2024 14:02-0400 Body weight 69.[address] Mago Kahn DO Work Phone: [facility] 11-15-2024 14:02-0400 Diastolic blood pressure 81 mm[Hg] Dr. Mago Kahn DO Work Phone: [facility] 11-15-2024 14:02-0400 Heart rate 82 /min Dr. Mago Kahn DO Work Phone: [facility] 11-15-2024 14:02-0400 Respiratory rate 15 /min Dr. Mago Kahn DO Work Phone: [facility] 11-15-2024 14:02-0400 SaO2% (BldA) [Mass fraction] 98 % Dr. Mago Kahn DO Work Phone: [facility] 11-15-2024 14:02-0400 Systolic blood pressure 146 mm[Hg] Dr. Mago Kahn DO Work Phone: [facility] 07-23-2023 09:51-0500 Body height 172.[address] Mago Kahn Work Phone: [facility] 07-23-2023 09:51-0500 Body mass index (BMI) [Ratio] 23.4 kg/m2 Dr. Mago Kahn Work Phone: [facility] 07-23-2023 09:51-0500 Body temperature 98.6 [degF] Dr. Mago Kahn Work Phone: [facility] 07-23-2023 09:51-0500 Body weight 70.[address] Mago Kahn Work Phone: [facility] 07-23-2023 09:51-0500 Diastolic blood pressure 78 mm[Hg] Dr. Mago Kahn Work Phone: [facility] 07-23-2023 09:51-0500 Heart rate 91 /min Dr. Mago Kahn Work Phone: [facility] 07-23-2023 09:51-0500 Respiratory rate 17 /min Dr. Mago Kahn Work Phone: [facility] 07-23-2023 09:51-0500 SaO2% (BldA) [Mass fraction] 97 % Dr. Mago Kahn Work Phone: [facility] 07-23-2023 09:51-0500 Systolic blood pressure 130 mm[Hg] Dr. Mago Kahn Work Phone: [facility] 02-12-2023 06:56-0400 Body height 172.72 cm Samantha [...] Internal Medicine; [facility] Work Phone: Comment on above: Patient Position: Sitting; Cuff Location : Left Arm; Cuff Size: Standard 02-12-2023 06:56-0400 Heart rate 107 /min Samantha Mena MA [facility]; [facility] Work Phone: Comment on above: Pattern: Regular 02-12-2023 06:56-0400 SaO2% (BldA) [Mass fraction] 96 % Samantha Mena MA [facility]; [facility] Work Phone: Comment on above: Room air 02-12-2023 06:56-0400 Systolic blood pressure 122 mm[Hg] Samantha Mena MA [facility]; [facility] Work Phone: Comment on above: Patient Position: Sitting; Cuff Location : Left Arm; Cuff Size: Standard 02-04-2023 13:37-0400 Body temperature 98.4 [degF] Dr. Mago Kahn Work Phone: [facility] 02-04-2023 13:37-0400 Diastolic blood pressure 91 mm[Hg] Dr. Mago Kahn Work Phone: [facility] 02-04-2023 13:37-0400 Heart rate 79 /min Dr. Mago Kahn Work Phone: [facility] 02-04-2023 13:37-0400 Respiratory rate 18 /min Dr. Mago Kahn Work Phone: [facility] 02-04-2023 13:37-0400 SaO2% (BldA) [Mass fraction] 97 % Dr. Mago Kahn Work Phone: [facility] 02-04-2023 13:37-0400 Systolic blood pressure 150 mm[Hg] Dr. Mago Kahn Work Phone: [facility] 02-04-2023 13:09-0400 Body mass index (BMI) [Ratio] 21.7 kg/m2 Dr. Mago Kahn Work Phone: [facility] 02-04-2023 07:42-0400 Body temperature 98.4 [degF] Dr. Mago Kahn Work Phone: [facility] 02-04-2023 07:42-0400 Diastolic blood pressure 96 mm[Hg] Dr. Mago Kahn Work Phone: [facility] 02-04-2023 07:42-0400 Heart rate 67 /min Dr. Mago Kahn Work Phone: [facility] 02-04-2023 07:42-0400 Respiratory rate 18 /min Dr. Mago Kahn Work Phone: [facility] 02-04-2023 07:42-0400 SaO2% (BldA) [Mass fraction] 97 % Dr. Mago Kahn Work Phone: [facility] 02-04-2023 07:42-0400 Systolic blood pressure 145 mm[Hg] Dr. Mago Kahn Work Phone: [facility] 02-04-2023 01:40-0400 Body mass index (BMI) [Ratio] 21.7 kg/m2 Dr. Mago Kahn Work Phone: [facility] 02-03-2023 15:17-0400 Body height 172.[address] Mago Kahn Work Phone: [facility] 02-03-2023 15:17-0400 Body weight 64.[address] Mago Kahn Work Phone: [facility] 02-03-2023 14:17-0400 Body mass index (BMI) [Ratio] 22.8 kg/m2 [facility] 02-03-2023 14:13-0400 Body temperature 98.5 [degF] [facility] 02-03-2023 14:13-0400 Diastolic blood pressure 93 mm[Hg] [facility] 02-03-2023 14:13-0400 Heart rate 105 /min [facility] 02-03-2023 14:13-0400 Respiratory rate 17 /min [facility] 02-03-2023 14:13-0400 SaO2% (BldA) [Mass fraction] 97 % [facility] 02-03-2023 14:13-0400 Systolic blood pressure 149 mm[Hg] [facility] 02-03-2023 13:48-0400 Body height 175.26 cm [facility] 02-03-2023 13:48-0400 Body weight 70.26 kg [facility] 09-04-2022 11:33-0500 Body height 172.72 cm Samantha Mena MA [facility]; [facility] Work Phone: 09-04-2022 11:33-0500 Body mass index (BMI) [Ratio] 23.57 kg/m2 Samantha Mena MA [facility]; [facility] Work Phone: 09-04-2022 11:33-0500 Body surface area Derived from formula 1.83 m2 Samantha Mena MA [facility]; [facility] Work Phone: 09-04-2022 11:33-0500 Body temperature 96 [degF] Samantha Mena MA [facility]; [facility] Work Phone: 09-04-2022 11:33-0500 Body weight 70.31 kg Samantha Mena MA [facility]; [facility] Work Phone: 09-04-2022 11:33-0500 Diastolic blood pressure 90 mm[Hg] Samantha Mena MA [facility]; [facility] Work Phone: Comment on above: Patient Position: Sitting; Cuff Location : Left Arm; Cuff Size: Standard 09-04-2022 11:33-0500 Heart rate 100 /min Samantha Mena MA [facility]; [facility] Work Phone: Comment on above: Pattern: Regular 09-04-2022 11:33-0500 Respiratory rate 18 /min Samantha Mena MA [facility]; [facility] Work Phone: Comment on above: Pattern: Unlabored 09-04-2022 11:33-0500 SaO2% (BldA) [Mass fraction] 97 % Samantha Mena MA [facility]; [facility] Work Phone: Comment on above: Room air 09-04-2022 11:33-0500 Systolic blood pressure 170 mm[Hg] Samantha Mena MA [facility]; [facility] Work Phone: Comment on above: Patient Position: Sitting; Cuff Location : Left Arm; Cuff Size: Standard 09-04-2022 07:38-0500 Body height 172.72 cm Samantha Mena MA [facility]; [facility] Work Phone: 09-04-2022 07:38-0500 Body mass index (BMI) [Ratio] 23.57 kg/m2 Samantha Mena MA [facility]; [facility] Work Phone: 09-04-2022 07:38-0500 Body surface area Derived from formula 1.83 m2 Samantha Mena MA [facility]; [facility] Work Phone: 09-04-2022 07:38-0500 Body weight 70.31 kg Samantha Mena MA [facility]; [facility] Work Phone: 05-07-2022 09:15-0500 Body temperature 97.5 [degF] Dr. Mago Kahn Work Phone: [facility] Work Phone: 05-07-2022 09:15-0500 Diastolic blood pressure 93 mm[Hg] Dr. Mago Kahn Work Phone: [facility] Work Phone: 05-07-2022 09:15-0500 Heart rate 74 /min Dr. Mago Kahn Work Phone: [facility] Work Phone: 05-07-2022 09:15-0500 Respiratory rate 16 /min Dr. Mago Kahn Work Phone: [facility] Work Phone: 05-07-2022 09:15-0500 SaO2% (BldA) [Mass fraction] 100 % Dr. Mago Kahn Work Phone: [facility] Work Phone: 05-07-2022 09:15-0500 Systolic blood pressure 153 mm[Hg] Dr. Mago Kahn Work Phone: [facility] Work Phone: 05-07-2022 07:51-0500 Body height 175.[address] Mago Kahn Work Phone: [facility] Work Phone: 05-07-2022 07:51-0500 Body mass index (BMI) [Ratio] 22.8 kg/m2 Dr. Mago Kahn Work Phone: [facility] Work Phone: 05-07-2022 07:51-0500 Body weight [address] Mago Kahn Work Phone: [facility] Work Phone: 03-20-2022 13:06-0400 Body mass index (BMI) [Ratio] 23.6 kg/m2 Dr. Mago Kahn Work Phone: [facility] Work Phone: 03-20-2022 13:06-0400 Body weight 72.[address] Mago Kahn Work Phone: [facility] Work Phone: 01-24-2022 11:43-0400 Body height 172.72 cm [facility]; [facility] Work Phone: 01-24-2022 11:43-0400 Body mass index (BMI) [Ratio] 23.57 kg/m2 [facility]a [facility]; [facility] Work Phone: 01-24-2022 11:43-0400 Body surface area Derived from formula 1.83 m2 Michaela Akbar [facility]; [facility] Work Phone: 01-24-2022 11:43-0400 Body temperature 97.3 [degF] Michaela Akbar CMA [facility]; [facility] Work Phone: Comment on above: Method: Infrared 01-24-2022 11:43-0400 Body weight 70.31 kg Michaela Akbar [facility]; [facility] Work Phone: 01-24-2022 11:43-0400 Diastolic blood pressure 84 mm[Hg] Michaela Akbar [facility]; [facility] Work Phone: Comment on above: Patient Position: Sitting; Cuff Location : Left Arm; Cuff Size: Standard 01-24-2022 11:43-0400 Heart rate 84 /min Michaela Akbar [facility]; [facility] Work Phone: Comment on above: Pattern: Regular 01-24-2022 11:43-0400 Respiratory rate 16 /min Michaela Akbar CMA [facility]; [facility] Work Phone: Comment on above: Pattern: Unlabored 01-24-2022 11:43-0400 SaO2% (BldA) [Mass fraction] 98 % Michaela Akbar [facility]; [facility] Work Phone: Comment on above: Room air 01-24-2022 11:43-0400 Systolic blood pressure 122 mm[Hg] Michaela Akbar [facility]; [facility] Work Phone: Comment on above: Patient Position: Sitting; Cuff Location : Left Arm; Cuff Size: Standard 01-23-2021 09:25-0400 Body height 172.72 cm Meli Quigley LPN [facility]; [facility] Work Phone: 01-23-2021 09:25-0400 Body mass index (BMI) [Ratio] 23.11 kg/m2 Meli Quigley LPN [facility]; [facility] Work Phone: 01-23-2021 09:25-0400 Body surface area Derived from formula 1.82 m2 Meli Quigley LPN [facility]; [facility] Work Phone: 01-23-2021 09:25-0400 Body temperature 98.2 [degF] Meli Quigley LPN [facility]; [facility] Work Phone: Comment on above: Method: Infrared 01-23-2021 09:25-0400 Body weight 68.95 kg Meli Quigley LPN [facility]; [facility] Work Phone: 01-23-2021 09:25-0400 Diastolic blood pressure 90 mm[Hg] Meli Quigley LPN [facility]; [facility] Work Phone: Comment on above: Patient Position: Sitting; Cuff Location : Left Arm; Cuff Size: Standard 01-23-2021 09:25-0400 Heart rate 89 /min Meli Quigley LPN [facility]; [facility] Work Phone: Comment on above: Pattern: Regular 01-23-2021 09:25-0400 Respiratory rate 16 /min Meli Quigley LPN [facility]; [facility] Work Phone: Comment on above: Pattern: Unlabored 01-23-2021 09:25-0400 SaO2% (BldA) [Mass fraction] 98 % Meli Quigley LPN [facility]; [facility] Work Phone: Comment on above: Room air 01-23-2021 09:25-0400 Systolic blood pressure 150 mm[Hg] Meli Quigley LPN [facility]; [facility] Work Phone: Comment on above: Patient Position: Sitting; Cuff Location : Left Arm; Cuff Size: Standard 04-25-2019 15:55-0400 BMI (Body Mass Index) 23.11 kg/m2 Michaela Akbar [facility] Work Phone: 04-25-2019 15:55-0400 Body Temperature 97.2 [degF] Michaela Akbar [facility] Work Phone: Comment on above: Method: Temporal 10-28-2019 15:55-0400 Body weight 68.95 kg Michaela Akbar [facility] Work Phone: 04-25-2019 15:55-0400 BP Diastolic 84 mm[Hg] Michaela Akbar [facility] Work Phone: Comment on above: Patient Position: Sitting; Cuff Location : Left Arm; Cuff Size: Standard 04-25-2019 15:55-0400 BP Systolic 142 mm[Hg] Michaela Akbar [facility] Work Phone: Comment on above: Patient Position: Sitting; Cuff Location : Left Arm; Cuff Size: Standard 04-25-2019 15:55-0400 BSA (Body Surface Area) 1.82 m2 Michaela Akbar [facility] Work Phone: 04-25-2019 15:55-0400 Height 172.72 cm Michaela Akbar [facility] Work Phone: 04-25-2019 15:55-0400 Pulse (Heart Rate) 88 /min Michaela Akbar [facility] Work Phone: Comment on above: Pattern: Regular 04-25-2019 15:55-0400 Pulse Oximetry 98 % Mago Criss [facility] Internal Medicine Work Phone: Comment on above: Room air 04-25-2019 15:55-0400 Respiratory Rate 16 /min Michaela Akbar [facility] Work Phone: Comment on above: Pattern: Unlabored 04-25-2019 15:55-0400 SaO2% (BldA) [Mass fraction] 98 % Michaela Akbar [facility]; [facility] Work Phone: Comment on above: Room air 06-25-2018 12:04-0500 BMI (Body Mass Index) 22.96 kg/m2 Linda Traore RN [facility] Work Phone: 06-25-2018 12:04-0500 Body weight 68.49 kg Linda Traore RN [facility] Work Phone: 06-25-2018 12:04-0500 BP Diastolic 88 mm[Hg] Linda uSkh León GUERRA [facility] Work Phone: Comment on above: Patient Position: Sitting; Cuff Location : Left Arm; Cuff Size: Standard 06-25-2018 12:04-0500 BP Systolic 132 mm[Hg] Linda Sukh León GUERRA [facility] Work Phone: Comment on above: Patient Position: Sitting; Cuff Location : Left Arm; Cuff Size: Standard 06-25-2018 12:04-0500 BSA (Body Surface Area) 1.81 m2 Linda Traore RN [facility] Work Phone: 06-25-2018 12:04-0500 Height 172.72 cm Linda Traore RN [facility] Work Phone: 06-25-2018 12:04-0500 Pulse (Heart Rate) 80 /min Linda Traore RN [facility] Work Phone: Comment on above: Pattern: Regular 06-25-2018 12:04-0500 Pulse Oximetry 99 % Mago Criss [facility] Work Phone: Comment on above: Room air 06-25-2018 12:04-0500 Respiratory Rate 16 /min Linda Traore RN [facility] Work Phone: Comment on above: Pattern: Unlabored 06-25-2018 12:04-0500 SaO2% (BldA) [Mass fraction] 99 % Linda Traore RN [facility]; [facility] Work Phone: Comment on above: Room air 06-25-2018 12:04-0500 Weight 68.49 kg Mago Sotoon [facility] Work Phone: 05-28-2017 07:47-0500 BMI (Body Mass Index) 22.85 kg/m2 Xochitl Castro [facility] [facility] Work Phone: 05-28-2017 07:47-0500 Body Temperature 97.9 [degF] Xochitl Castro [facility] Work Phone: Comment on above: Method: Temporal 05-28-2017 07:47-0500 Body weight 68.15 kg Xochitl Castro [facility] Work Phone: 05-28-2017 07:47-0500 BP Diastolic 80 mm[Hg] Xochitl Castro [facility] Work Phone: Comment on above: Patient Position: Sitting; Cuff Location : Left Arm; Cuff Size: Standard 05-28-2017 07:47-0500 BP Systolic 142 mm[Hg] Xochitl Castro [facility] Internal [facility] Work Phone: Comment on above: Patient Position: Sitting; Cuff Location : Left Arm; Cuff Size: Standard 05-28-2017 07:47-0500 BSA (Body Surface Area) 1.81 m2 Xochitl Castro [facility] Internal Medicine Work Phone: 05-28-2017 07:47-0500 Height 172.72 cm Xochitl Castro [facility] Work Phone: 05-28-2017 07:47-0500 Pulse (Heart Rate) 101 /min Xochitl Castro [facility] Internal [facility] Work Phone: Comment on above: Pattern: Regular 05-28-2017 07:47-0500 Pulse Oximetry 98 % Mago Kahn [facility] Internal Medicine Work Phone: Comment on above: Room air 05-28-2017 07:47-0500 Respiratory Rate 16 /min Xochitl Castro [facility] Internal [facility] Work Phone: Comment on above: Pattern: Unlabored 05-28-2017 07:47-0500 SaO2% (BldA) [Mass fraction] 98 % Xochitl Castro [facility]; [facility] Work Phone: Comment on above: Room air 05-28-2017 07:47-0500 Weight 68.15 kg Mago Kahn [facility] Internal Medicine Work Phone: 05-13-2017 13:28-0500 BMI (Body Mass Index) 23.3 kg/m2 Maribell Miranda RN [facility] Internal Medicine Work Phone: 05-13-2017 13:28-0500 Body weight 69.51 kg Maribell Miranda RN [facility] Work Phone: 05-13-2017 13:28-0500 BP Diastolic 86 mm[Hg] Maribell Miranda RN [facility] Work Phone: Comment on above: Patient Position: Sitting; Cuff Location : Left Arm; Cuff Size: Standard 05-13-2017 13:28-0500 BP Systolic 128 mm[Hg] Maribell Miranda RN [facility] Work Phone: Comment on above: Patient Position: Sitting; Cuff Location : Left Arm; Cuff Size: Standard 05-13-2017 13:28-0500 BSA (Body Surface Area) 1.83 m2 Maribell Miranda RN [facility] Work Phone: 05-13-2017 13:28-0500 Height 172.72 cm Maribell Miranda RN [facility] Work Phone: 05-13-2017 13:28-0500 Pulse (Heart Rate) 115 /min Maribell Miranda RN [facility] Work Phone: Comment on above: Pattern: Regular 05-13-2017 13:28-0500 Pulse Oximetry 96 % Mago Kahn [facility] Work Phone: Comment on above: Room air 05-13-2017 13:28-0500 Respiratory Rate 18 /min Maribell Miranda RN [facility] Work Phone: Comment on above: Pattern: Unlabored 05-13-2017 13:28-0500 SaO2% (BldA) [Mass fraction] 96 % Maribell Miranda RN [facility]; [facility] Work Phone: Comment on above: Room air 05-13-2017 13:28-0500 Weight 69.51 kg Mago Kahn [facility] Work Phone: 03-31-2016 15:52-0400 BMI (Body Mass Index) 23.02 kg/m2 Mago Kahn DO Work Phone: [facility] Work Phone: Comment on above: ernestina 144/78 03-31-2016 15:52-0400 Body weight 68.66 kg Mago Kahn DO Work Phone: [facility] Work Phone: Comment on above: ernestina 144/78 03-31-2016 15:52-0400 BP Diastolic 82 mm[Hg] Mago Criss DO Work Phone: [facility] Work Phone: Comment on above: Patient Position: Standing; Cuff Locatio n: Left Arm; Cuff Size: Large ernestina 144/78 03-31-2016 15:52-0400 BP Systolic 138 mm[Hg] Mago Criss DO Work Phone: [facility] Work Phone: Comment on above: Patient Position: Standing; Cuff Locatio n: Left Arm; Cuff Size: Large ernestina 144/78 03-31-2016 15:52-0400 BSA (Body Surface Area) 1.82 m2 Mago Criss DO Work Phone: [facility] Work Phone: Comment on above: ernestina 144/78 03-31-2016 15:52-0400 Height 172.72 cm Mago Criss DO Work Phone: [facility] Work Phone: Comment on above: ernestina 144/78 03-31-2016 15:52-0400 Pulse (Heart Rate) 84 /min Mago Criss DO Work Phone: [facility] Work Phone: Comment on above: Pattern: Regular ernestina 144/78 03-31-2016 15:52-0400 Pulse Oximetry 97 % Mago Criss [facility] Work Phone: Comment on above: Room air ernestina 144/78 03-31-2016 15:52-0400 Respiratory Rate 18 /min Mago Criss DO Work Phone: [facility] Work Phone: Comment on above: Pattern: Unlabored ernestina 144/78 03-31-2016 15:52-0400 SaO2% (BldA) [Mass fraction] 97 % Mago Criss DO Work Phone: [facility]; [facility] Work Phone: Comment on above: Room air ernestina 144/78 03-31-2016 15:52-0400 Weight 68.66 kg Mago Kahn [facility] Internal Medicine Work Phone: 10-14-2011 10:45-0400 BMI (Body Mass Index) 21.89 kg/m2 Mago Kahn [facility] Internal Medicine Work Phone: 10-14-2011 10:45-0400 Body Temperature 100 [degF] Mago Kahn [facility] Internal Medicine Work Phone: Comment on above: Method: Oral 10-14-2011 10:45-0400 Body weight 65.32 kg Mago Kahn [facility] Internal Medicine Work Phone: 10-14-2011 10:45-0400 BP Diastolic 78 mm[Hg] Mago Kahn [facility] Internal Medicine Work Phone: Comment on above: Patient Position: Sitting; Cuff Location : Left Arm; Cuff Size: Standard 10-14-2011 10:45-0400 BP Systolic 122 mm[Hg] Mago Kahn [facility] Internal Medicine Work Phone: Comment on above: Patient Position: Sitting; Cuff Location : Left Arm; Cuff Size: Standard 10-14-2011 10:45-0400 BSA (Body Surface Area) 1.78 m2 Mago Kahn [facility] Internal Medicine Work Phone: 10-14-2011 10:45-0400 Height 172.72 cm Mago Kahn [facility] Medicine Work Phone: 10-14-2011 10:45-0400 Pulse (Heart Rate) 88 /min Mago Kahn [facility] Work Phone: Comment on above: Pattern: Regular 10-14-2011 10:45-0400 Pulse Oximetry 97 % Mago Kahn [facility] Internal Medicine Work Phone: Comment on above: Room air 10-14-2011 10:45-0400 Respiratory Rate 16 /min Mago Kahn [facility] Internal Medicine Work Phone: 10-14-2011 10:45-0400 SaO2% (BldA) [Mass fraction] 97 % Mago Kahn DO Work Phone: [facility]; [facility] Work Phone: Comment on above: Room air 10-14-2011 10:45-0400 Weight 65.32 kg Mago Kahn [facility] Internal Medicine Work Phone: 04-07-2011 10:31-0400 BMI (Body Mass Index) 21.89 kg/m2 Josiane Liraen [facility] Internal [facility] Work Phone: 04-07-2011 10:31-0400 Body Temperature 99.4 [degF] Josiane Pak [facility] Internal Medicine Work Phone: 04-07-2011 10:31-0400 Body weight 65.32 kg Josiane Pak [facility] Internal Medicine Work Phone: 04-07-2011 10:31-0400 BP Diastolic 66 mm[Hg] Josiane Pak [facility] Internal Medicine Work Phone: Comment on above: Patient Position: Sitting; Cuff Location : Left Arm; Cuff Size: Large 04-07-2011 10:31-0400 BP Systolic 120 mm[Hg] Josiane Pak [facility] Internal Medicine Work Phone: Comment on above: Patient Position: Sitting; Cuff Location : Left Arm; Cuff Size: Large 04-07-2011 10:31-0400 BSA (Body Surface Area) 1.78 m2 Josiane Pak [facility] Internal Medicine Work Phone: 04-07-2011 10:31-0400 Height 172.72 cm Josiane Pak [facility] Internal Medicine Work Phone: 04-07-2011 10:31-0400 Pulse (Heart Rate) 86 /min Josiane Pak [facility] Work Phone: Comment on above: Pattern: Regular 04-07-2011 10:31-0400 Respiratory Rate 16 /min Josiane Pak [facility] Internal Medicine Work Phone: Comment on above: Pattern: Unlabored 04-07-2011 10:31-0400 Weight 65.32 kg Mago Kahn [facility] Internal Medicine Work Phone: 05-08-2009 15:34-0500 BMI (Body Mass Index) 22.23 kg/m2 Mago Kahn [facility] Internal Medicine Work Phone: 05-08-2009 15:34-0500 Body weight 66.31 kg Mago Kahn [facility] Internal Medicine Work Phone: 05-08-2009 15:34-0500 BP Diastolic 72 mm[Hg] Mago Kahn [facility] Internal Medicine Work Phone: Comment on above: Patient Position: Supine; Cuff Location: Left Arm; Cuff Size: Standard 05-08-2009 15:34-0500 BP Systolic 130 mm[Hg] Mago Kahn [facility] Work Phone: Comment on above: Patient Position: Supine; Cuff Location: Left Arm; Cuff Size: Standard 05-08-2009 15:34-0500 BSA (Body Surface Area) 1.79 m2 Mago Kahn [facility] Internal Medicine Work Phone: 05-08-2009 15:34-0500 Head Circumference 0 cm Mago Kahn [facility] Work Phone: 05-08-2009 15:34-0500 Head Occipital-frontal circumference 0 cm Mago Kahn DO Work Phone: [facility]; [facility] Work Phone: 05-08-2009 15:34-0500 Height 172.72 cm Mago Kahn [facility] Work Phone: 05-08-2009 15:34-0500 Pulse (Heart Rate) 80 /min Mago Kahn [facility] Internal Medicine Work Phone: Comment on above: Pattern: Regular 05-08-2009 15:34-0500 Respiratory Rate 16 /min Mago Kahn [facility] Internal Medicine Work Phone: Comment on above: Pattern: Unlabored 05-08-2009 15:34-0500 Weight 66.31 kg Mago Kahn [facility] Work Phone: 12-30-2007 10:11-0400 BMI (Body Mass Index) 22.08 kg/m2 Maribell Miranda RN [facility] Work Phone: 12-30-2007 10:11-0400 Body weight 65.89 kg Maribell Miranda RN [facility] Work Phone: 12-30-2007 10:11-0400 BP Diastolic 80 mm[Hg] Maribell Miranda RN [facility] Work Phone: Comment on above: Patient Position: Sitting; Cuff Location : Right Arm; Cuff Size: Standard 12-30-2007 10:11-0400 BP Systolic 122 mm[Hg] Maribell Miranda RN [facility] Work Phone: Comment on above: Patient Position: Sitting; Cuff Location : Right Arm; Cuff Size: Standard 12-30-2007 10:11-0400 BSA (Body Surface Area) 1.78 m2 Maribell Miranda RN [facility] Work Phone: 12-30-2007 10:11-0400 Head Circumference 0 cm Mago Kahn [facility] Work Phone: 12-30-2007 10:11-0400 Head Occipital-frontal circumference 0 cm Maribell Miranda RN [facility]; [facility] Work Phone: 12-30-2007 10:11-0400 Height 172.72 cm Maribell Miranda RN [facility] Work Phone: 12-30-2007 10:11-0400 Pulse (Heart Rate) 80 /min Maribell Miranda RN [facility] Work Phone: Comment on above: Pattern: Regular 12-30-2007 10:11-0400 Respiratory Rate 16 /min Maribell Miranda RN [facility] Work Phone: Comment on above: Pattern: Unlabored 12-30-2007 10:11-0400 Weight 65.89 kg Mago Kahn [facility] Work Phone: 04-01-2006 15:52-0400 Body Temperature 98.4 [degF] Mago Kahn [facility] Work Phone: Comment on above: Method: Undefined 04-01-2006 15:52-0400 Body weight 0 kg Mago Kahn [facility] Work Phone: 04-01-2006 15:52-0400 BP Diastolic 70 mm[Hg] Mago Kahn [facility] Work Phone: Comment on above: Patient Position: Sitting; Cuff Location : Left Arm; Cuff Size: Standard 04-01-2006 15:52-0400 BP Systolic 132 mm[Hg] Mago Kahn [facility] Work Phone: Comment on above: Patient Position: Sitting; Cuff Location : Left Arm; Cuff Size: Standard 04-01-2006 15:52-0400 Head Circumference 0 cm Mago Kahn [facility] Work Phone: 04-01-2006 15:52-0400 Head Occipital-frontal circumference 0 cm Mago Kahn DO Work Phone: [facility]; [facility] Work Phone: 04-01-2006 15:52-0400 Height 0 cm Mago Kahn [facility] Work Phone: 04-01-2006 15:52-0400 Pulse (Heart Rate) 72 /min Mago Kahn [facility] Work Phone: Comment on above: Pattern: Regular 04-01-2006 15:52-0400 Respiratory Rate 16 /min Mago Kahn [facility] Work Phone: Comment on above: Pattern: Undefined 04-01-2006 15:52-0400 Weight 0 kg Mago Kahn [facility] Work Phone: Encounters Encounter Date Encounter Type Care Provider Facility Start: 11-15-2024 End: 11-15-[address] Josh Shirley MD [facility] Work Phone: Start: 11-15-2024 End: 11-15-[address] Mago Kahn DO Work Phone: [facility] Work Phone: Start: 11-26-2023 End: 11-26-2023 ambulatory Josh Shirley [place] Start: 08-13-2023 End: 08-13-[address] Mago Kahn Work Phone: [facility] Work Phone: Start: 08-13-2023 End: 08-13-[address] Mago Kahn Work Phone: [facility]-Laboratory, [place] Work Phone: Start: 08-06-2023 End: 08-06-[address] Mago Kahn Work Phone: [facility] Work Phone: Start: 08-06-2023 End: 08-06-[address] Mago Kahn Work Phone: [facility]-Sleep Lab Work Phone: Start: 07-23-2023 End: 07-23-[address] Mago Kahn Work Phone: [facility] Work Phone: Start: 03-03-2023 End: 03-03-2023 Phone Encounter Mago Kahn DO Work Phone: [facility] Start: 02-12-2023 End: 02-12-2023 Office outpatient visit 40 minutes Mago Kahn DO Work Phone: [facility] Start: 02-04-2023 Non-patient / Non-visit Dr. Sonia Kahn Work Phone: [facility] Work Phone: Start: 02-04-2023 Non-patient / Non-visit Dr. Sonia Kahn Work Phone: [facility] Start: 02-03-2023 End: 02-04-2023 Evaluation and management of inpatient Dr. Mago Kahn Work Phone: [facility]-Progressive Care Unit Work Phone: Start: 02-03-2023 End: 02-04-[address] Mago Kahn Work Phone: [facility] Work Phone: Start: 02-03-2023 Non-patient / Non-visit Dr. Sonia Kahn Work Phone: [facility] Work Phone: Start: 02-03-2023 End: 02-03-2023 Emergency department patient visit [facility]Emergency Department Work Phone: Start: 09-29-2022 Non-patient / Non-visit Dr. Sonia Kahn Work Phone: [facility] Start: 09-25-2022 Non-patient / Non-visit Dr. Sonia Kahn Work Phone: [facility] Start: 09-25-2022 End: 09-25-[address] Mago Kahn Work Phone: [facility] Work Phone: Start: 09-25-2022 End: 09-25-[address] Mago Kahn Work Phone: [facility]-Cardiovascular Services Start: 09-05-2022 End: 09-05-2022 ambulatory [facility] Work Phone: Start: 09-05-2022 End: 09-05-2022 Patient encounter procedure [facility] Start: 09-04-2022 ambulatory Mago Kahn DO [facility] Start: 09-04-2022 End: 09-04-2022 Office outpatient visit 40 minutes Mago Kahn DO Work Phone: [facility] Start: 05-07-2022 Non-patient / Non-visit Dr. Sonia Kahn Work Phone: [facility] Start: 05-07-2022 End: 05-07-2022 Admission to same day surgery center Dr. Mago Kahn Work Phone: [facility]-Endoscopy Start: 05-07-2022 End: 05-07-[address] Mago Kahn Work Phone: [facility] Work Phone: Start: 03-20-2022 Non-patient / Non-visit Dr. Sonia Kahn Work Phone: [facility] Start: 01-24-2022 End: 01-24-2022 Patient encounter status Mago Kahn DO Work Phone: [facility]; [facility] Work Phone: Start: 01-24-2022 End: 01-24-2022 Periodic preventive med est patient 40-64yrs Mago Kahn DO Work Phone: [facility] Start: 01-24-2022 Review Mago Silva n DO Work Phone: [facility] Start: 01-23-2021 End: 01-23-2021 Office outpatient visit 15 minutes Mago Kahn DO Work Phone: [facility] Start: 04-25-2019 End: 04-25-2019 Patient encounter status Mago Kahn DO Work Phone: [facility] Start: 04-25-2019 End: 04-25-2019 Periodic preventive med est patient 40-64yrs Mago Kahn [facility] Start: 06-28-2018 End: 06-28-2018 Phone Encounter Mago Kahn [facility] Start: 06-25-2018 End: 06-25-2018 Periodic [...] End: 03-19-2006 Historical Summary Mago Kahn [facility] Patient encounter procedure Maribell Miranda RN [facility]; [facility] Work Phone: Patient encounter status Meli Quigley LPN [facility]; [facility] Work Phone: Patient encounter status Samantha Mena MA [facility]; [facility] Work Phone: Patient encounter status Meli Quigley LPN [facility]; [facility] Work Phone: Physical examination Meli Quigley LPN [facility]; [facility] Work Phone: Physical examination Maribell Miranda RN [facility]; [facility] Work Phone: Physical examination Michaela Akbar HYDROGEN OPERATOR [facility]; [facility] Work Phone: Physical examination Samantha Mena MA [facility]; [facility] Work Phone: Physical examination Meli Soraida NIALL Co [facility]; [facility] Work Phone: Procedures Date Procedure Procedure Detail Performing Clinician Start: 02-03-2023 MRI of brain without contrast Dr. Mago Kahn Work Phone: Start: 02-03-2023 End: 02-03-2023 Chest 1 View Procedure Note: See Note; NOTES: [facility] Imaging Services [address] [place] [address] Chest 1 View MR#: [id number] Acct: [id number] Name: АЛЕКСАНДР CRUZ Rep #: [id number] : 1970 M 52 From: Jasiel willis MD PCP: Dr. Mago Kahn, DO Status: REG ER Study: Chest 1 View Date of Exam: 02/03/23 Exam# [id number] Ordering Dr: Gem Guerra DO STUDY: X-RAY [...] Signed: Jasiel Davenport MD at 14:25 EDT , CC: Dr. Mago Kahn DO; Dr. Gem Guerra DO Basket Weaver: Signed Mago Kahn DO Work Phone: Start: 02-03-2023 CT angiography of head and neck Start: 02-03-2023 CT of head without contrast Start: 02-03-2023 Plain chest X-ray Start: 02-03-2023 End: 02-03-2023 STROKE Brain/Head without Cont Procedure Note: See Note; NOTES: [facility] Imaging Services [address] [place] [address] STROKE Brain/Head without Cont MR#: [id number] Acct: [id number] Name: АЛЕКСАНДР CRUZ Rep #: [id number] : 1970 M 52 From: Jasiel willis MD PCP: Dr. Mago aKhn DO Status: REG ER Study: STROKE Brain/Head without Cont Date of Exam: 0 02/03/23 Exam# [id number] Ordering Dr: Gem Guerra DO STUDY: CT [...] Mago Kahn DO; Dr. Gem Guerra DO Basket Weaver: Signed Mago Kahn DO Work Phone: Start: 02-03-2023 End: 02-03-2023 STROKE CTA Head AND Neck W/Con Procedure Note: See Note; NOTES: [facility] Imaging Services [address] [place] [address] STROKE CTA Head AND Neck W/Con MR#: [id number] Acct: [id number] Name: АЛЕКСАНДР CRUZ Rep #: [id number] : 1970 M 52 From: Jasiel willis MD PCP: Dr. Mago Kahn DO Status: REG ER Study: STROKE CTA Head AND Neck W/Con Date of Exam: 0 02/03/23 Exam# [id number] Ordering Dr: Gem Guerra DO STUDY: CTA [...] There is no demonstrated aneurysm of the standing [place] of [place]. There is no demonstrated abnormality [...] Mago Kahn DO; Dr. Gem Guerra DO Basket Weaver: Signed Mago Kahn DO Work Phone: Start: 09-29-2022 End: 09-29-2022 Stress Report Procedure Note: See Note; NOTES: [facility] Cardiovascular Services [address] [place] [address] MR#: [id number] Acct: [id number] Name: АЛЕКСАНДР CRUZ Rep #: [id number] : 1970 52 From: Kenneth Pringle MD Primary Care: Dr. Mago Kahn DO Status: REG CLI Referring Dr: Mago Kahn [...] of 62%. This note was generated with meinKaufation software. It may contain incorrect words, spelling, and punctuation that were not noted in checking the note before signing. 09/29/221647 <Electronically signed by Kenneth Pringle MD> Date Kenneth Pringle MD CC: Dr. Mago Kahn, DO Date Dictated: 09/29/221642 Date Transcribed: 09/29/221642 Basket Weaver: JOSE Signed Mago Kahn DO Work Phone: Start: 09-25-2022 End: 09-26-2022 Echo Complete Procedure Note: See Note; NOTES: [facility] Cardi[facility] Services [address] [place], [place] [address] [address] Echo Complete 09/25/22 0917 MR#: [id number] Acct: [id number] Name: АЛЕКСАНДР CRUZ Rep #: [id number] : 1970 52 From: Kenneth Pringle MD Attending Dr: Dr. Maog Kahn, DO Status: R EG CLI Ordering Dr: Mago Kahn DO Date: 09/25/22 Location: [facility] Sex: M C Admitted: Reason For Study: [...] sec Doppler Measurements Calculations MV E max pelon: 58.9 cm/sec Lat Peak E' Pelon: 7.3 cm/sec Med Peak E' Pelon: 9.3 cm/sec MV A max pelon: 67.1 cm/sec E/E' lat: 8.0 E/E' med: [...] cm AV (velocity ratio): 0.78 TR max pelon: 224.9 cm/sec TR max P.2 mmHg ECHO/Echo Complete Interpretation Summary The estimated ejection fraction is 65 %. No evidence for diastolic dysfunction. Ordering Physician: Mago Kahn Referring Physician: Mago Kahn Performed By: Sherie Myles, RDCS, RVT 09/26/22 1305 Date Kenneth Pringle MD CC: Dr. Mago Kahn DO Date Dictated: 09/25/22916 Date Transcribed: 09/26/22 1305 Basket Weaver: Signed Mago Kahn DO Work Phone: Start: 09-25-2022 Radionuclide imaging of perfusion of myocardium under exercise stress Dr. Mago Kahn Work Phone: Start: 05-07-2022 End: 05-07-2022 Colonoscopy Report Procedure Note: See Note; NOTES: [facility] Medical Records Department [address] [place] [address] Colonoscopy Report MR#: [id number] Acct: [id number] Name: АЛЕКСАНДР CRUZ Rep #: [id number] : 1970 52 From: Shira Echeverria MD PCP: Dr. Mago Kahn, DO Status:REG SDC Patient Name: Алекасндр Cruz Procedure Date: 05/07/2022 8:28 AM Date [...] pathology results. Procedure Code(s): --- Professional --- 67168, PT, Colonoscopy, flexible; with biopsy, single or multiple Diagnosis Code(s): --- Professional --- Z12.11, Encounter for screening for malignant neoplasm of colon K62.1, Rectal polyp K57.30, Diverticulosis of large intestine without perforation or abscess without bleeding CPT copyright 2017 [employer]. All rights reserved. The codes documented in this report are preliminary and upon field map technician review may be revised to meet current compliance requirements. MD Shira Ivey MD 05/07/2022 9:05:55 AM This report has been signed electronically. Number of Addenda: 0 Note Initiated On: 05/07/2022 8:28 AM 05/07/22905 Date Shira Echeverria MD Cosigner Signature: Date (if indicated) CC: Dr. Mago Kahn DO; Dr. Shira Echeverria MD Date Dictated: 05/07/22827 Date Transcribed: Basket Weaver: TR Signed Mago Kahn DO Work Phone: Start: 05-07-[address] Mago Kahn Work Phone: Start: 05-07-2022 End: 05-07-2022 History and Physical Exam Procedure Note: See Note; NOTES: [facility] Medical Records Department [address] [place] [address] History Physical Exam 05/07/22 0732 MR#: [id number] Acct: [id number] Name: АЛЕКСАНДР CRUZ Rep #: [id number] : 1970 52 From: Sihra Echeverria MD PCP: Dr. Mago Kahn, DO Status:[facility] Location: [place] [address] HPI - General HPI Narrative АЛЕКСАНДР CRUZ, [...] in the abdomen. Denies diarrhea with this. [facility] Medical History (Updated 05/02/22 @ 14:33 by [...] REACTION Discharge Is Pt Admitted From a Group Home, or a Penitentiary: No After D/C, Where Do you Plan [...] min 3 Views Comments: See Note; NOTES: [facility] Radiology [address] [place] [address] Foot min 3 Views MR#: [id number] Acct: [id number] Name: АЛЕКСАНДР CRUZ REBECCA Rep #: [id number] : 1970 M 50 From: Saturnino Villegas MD PCP: Dr. Mago Kahn DO Status: DEP AMB Study: Foot min 3 Views Date of Exam: 02/27/21 Exam# [id number] Ordering Dr: Heather Zuluaga DPM INDICATION: fracture [...] EDT Tel , Service support , CC: DPDavi Zuluaga; Dr. Mago Kahn DO Basket Weaver: Signed Mago Kahn DO Work Phone: Start: 01-23-2021 End: 01-23-2021 Foot min 3 Views Comments: See Note; NOTES: [facility] Radiology [address] [place] [address] Foot min 3 Views MR#: [id number] Acct: [id number] Name: АЛЕКСАНДР CRUZ Rep #: [id number] : 1970 M 50 From: Jasiel willis MD PCP: Dr. Mago Kahn DO Status: DEP AMB Study: Foot min 3 Views Date of Exam: 01/23/21 Exam# [id number] Ordering Dr: Melinda oJrdan RESEARCH SPECIALIST RESEARCH SPECIALIST-C STUDY: X-RAY - LEFT FOOT CLINICAL: Male, [...] 10:47 EDT , Service support , CC: MAGALIS Jordan; Dr. Mago Kahn DO Basket Weaver: Signed Melinda Jordan [facility] Work Phone: Plan of Treatment Date Care Activity Detail Author Start: 08-13-2023 Cardiolipin IgA and IgG and IgM panel - Serum [facility] Start: 08-13-2023 Complement C3 [Mass/volume] in Serum or Plasma [facility] Start: 08-13-2023 Complement C4 [Mass/volume] in Serum or Plasma [facility] Start: 08-13-2023 Complement total hemolytic CH50 [Units/volume] in Serum or Plasma [facility] Start: 08-13-2023 Factor V Leiden genotype [facility] Start: 08-13-2023 Lupus anticoagulant assay [facility] Start: 08-13-2023 Protein C [Units/volume] in Platelet poor plasma by Coagulation assay [facility] Start: 08-13-2023 Protein C Ag actual/normal in Platelet poor plasma by Immunoassay [facility] Start: 08-13-2023 Protein S assay [facility] Start: 08-13-2023 Protein S function estimate [facility] Start: 08-13-2023 Targeted analysis for gene mutation [facility] Start: 08-13-2023 [facility] Start: 02-12-2023 Procedure Education Eprescribed prescriptions (G8553) [facility] Work Phone: Start: 02-12-2023 Comprehensive metabolic panel METABOLIC PANEL, COMPREHENSIVE (60025) [facility]; [facility] Work Phone: Start: 02-12-2023 Lipid panel LIPID PANEL (38370) [facility] Work Phone: Start: 02-04-2023 Patient discharge [facility] Start: 02-04-2023 Telepractice consultation [facility] Start: 02-03-2023 Ambulation without limitation [facility] Start: 02-03-2023 Assessment of risk of venous thromboembolism [facility] Start: 02-03-2023 Catheterization of vein [facility] Start: 02-03-2023 Insertion of catheter into peripheral vein [facility] Start: 02-03-2023 Measuring intake and output [facility] Start: 02-03-2023 Providing care according to standard [facility] Start: 02-03-2023 Referral to occupational therapist [facility] Start: 02-03-2023 Referral to service [facility] Start: 02-03-2023 [facility] Start: 02-03-2023 Verification routine [facility] Start: 02-03-2023 Admission procedure [facility] Start: 02-03-2023 Following clinical pathway protocol [facility] Start: 02-03-2023 Oxygen therapy [facility] Start: 02-03-2023 [facility] Start: 02-03-2023 Patient referral to dietitian [facility] Start: 09-04-2022 Assay of troponin quantitative Troponin I (11624) [facility]; [facility] Work Phone: Start: 09-04-2022 Procedure Education Eprescribed prescriptions (G8553) [facility]; [facility] Work Phone: Start: 09-04-2022 Provider Instructions for Treatment Reviewed Lab [facility]; [facility] Work Phone: Start: 05-07-2022 Patient discharge [facility] Work Phone: Start: 01-24-2022 Assay of prostate specific antigen total PSA (PROSTATE SPECIFIC ANTIGEN) (65243) [facility]; [facility] Work Phone: Start: 01-24-2022 Lipid panel LIPID PANEL (48434) [facility] Work Phone: [...] blood vanesa numbers & subclasses NMR Profile (61949) [facility] Work Phone: Start: 04-25-2019 Glucose [Mass/Vol] GLUCOSE (05314) [facility] Work Phone: Start: 04-25-2019 Procedure Education Eprescribed prescriptions (G8553) [facility] Work Phone: Start: 04-25-2019 Provider Instructions for Treatment [facility] Work Phone: Start: 06-28-2018 Lipid panel Lipid Panel (58983) [facility] Work Phone: Start: 06-25-2018 Procedure [...] Phone: Start: 03-31-2016 Glucose mass conc GLUCOSE (75278) [facility] Work Phone: Start: 03-31-2016 Glucose quantitative blood xcpt reagent strip GLUCOSE (06883) [facility]; [facility] Work Phone: Start: 03-31-2016 Lipid panel LIPID PANEL (12574) [facility] Work Phone: Start: 03-31-2016 Provider Instructions for Treatment Follow up in 1 year or as needed [facility] Work Phone: Start: 10-14-2011 Provider Instructions for Treatment Poison Lilian Education [facility] Work Phone: Start: 12-30-2007 Lipid panel LIPID PANEL (92437) [facility] Work Phone: Start: 04-01-2006 Provider Instructions for Treatment [facility] Work Phone: Antithrombin III assay [facility] Antithrombin III ass ay, functional [facility] Cardiac event recording [facility] Cardiolipin IgA Ab [Units/volume] in Serum by Immunoassay [facility] Cardiolipin IgA and IgG and IgM panel - Serum [facility] Cardiolipin IgG Ab [Units/volume] in Serum or Plasma [facility] Cardiolipin IgM Ab [Units/volume] in Serum or Plasma [facility] Colonoscopy [facility] Work Phone: Complement C3 [Mass/volume] in Serum or Plasma [facility] Complement C4 [Mass/volume] in Serum or Plasma [facility] Complement total hemolytic CH50 [Units/volume] in Serum or Plasma [facility] Cytoplasmic ANCA Screen [facility] Erythrocyte sediment ation rate [facility] F5 gene mutations fo und [Identifier] in Blood or Tissue by Molecular genetics method Nominal [facility] Factor V Leiden genotype [facility] Lipid 1996 panel - S jennifer or Plasma [facility] Lupus anticoagulant assay [facility] Lupus anticoagulant screening test [facility] Partial thromboplast in time ratio [facility] Patient Education TIA Dc [facility] Work Phone: Patient referral [facility] Work Phone: Protein C [Units/vol ume] in Platelet poor plasma by Coagulation assay [facility] Protein C Ag actual/normal in Platelet poor plasma by Immunoassay [facility] Protein S assay [facility] Protein S Free Ag actual/normal in Platelet poor plasma by Immunoassay [facility] Protein S function estimate [facility] Protein S, functiona l assay [facility] Targeted analysis fo r gene mutation [facility] Thrombin time [facility] Work Phone: [facility] Work Phone: [facility] Work Phone: [facility] Work Phone[facility] Work Phone[facility] Work Phone: [facility] Work Phone: [facility] Work Phone: [facility] Work Phone: [facility] Immunizations Immunization Date Immunization Notes Care Provider Violeta saucedo 03-29-2019 influenza, seasonal, injectable Mago Kahn [facility] Work Phone: 05-08-2009 tetanus toxoid, reduced diphtheria toxoid, and acellular pertussis vaccine, adsorbed Mago Kahn [facility] Work Phone: Comment on above: Lot #: [id number] iration date: mount given: 0.5 mlRoute: IMSite given: right deltoidGiven by: Sreekanth Donovan LPN Payers Date Payer Category Payer Self-pay [id number] 2022 Unknown [id number] 2021 Unknown [id number] 2020 Private Health Insurance [id number] 2017 Unknown [id number] 2007 Unknown [id number] 1970 Unknown [id number] Private Health Insurance [id number] 01 Private Health Insurance [id number] Unknown Unknown [id number] Unknown [id number] Unknown [id number] Unknown [id number] Social History Date Type Detail Facility Alcohol Use Current every da y smoker [facility] Work Phone: Comment on above: Occasional alcohol u se 3 cups coffee and/or cola daily [employer] packaging Smokes < 1 pack of c igarettes per day Tobacco use: Current every da y smoker. [facility] Work Phone: Tobacco use: Tobacco use: [facility] Work Phone: Start: 05-07-2022 End: 07-23-2023 Tobacco smoking status NHIS Unknown if ever smoked [facility] Start: 1970 Sex Assigned At Male W [facility] Start: 07-23-2023 Tobacco smoking stat us NHIS Ex-smoker (finding) [facility] Goals Date Patient Goal Desired Activity /State Functional Status Date Assessment Result Facility 02-04-2023 Functional status Activity Abili ty Independent [facility] Work Phone: 05-06-2019 LP-IR Score LP-IR Score 56 [facility]; [facility] Work Phone: Comment on above: INSULIN RESISTANCE MARKER <--Insulin Sen sitive Insulin Resistant--> Percentile in Reference PopulationInsulin Resistance ScoreLP-IR Score Low 25th 50th 75th High <27 27 45 63 >63LP-IR Score is inaccurate if patient is non-fasting. .The LP-IR score is a laboratory developed index that has beenassociated with insulin resistance and diabetes risk and should beused as one component of a physician's clinical assessment. Test(s) 818274-SNH-M ; 910003-RPH-S; 615285-QRZ-U; 155458-Vjiuapmprzkdp; 976661-Feuvabhqacq, Total; 414941-VCD-X (Total);890810-Tdlpo LDL-P; 129539-WUG Size; 663820-HP-MB Scorewas developed and its performance characteristics determinedby [facility]. It has not been cleared or approved by the Foodand Drug Administration.PATIENT WAS FASTINGPERFORMED BY: BN [facility] [address] [id number] BY: CB [facility] [address] [id number] Mental Status Date Assessment Result Facility 02-04-2023 Cognitive function Voice/Name [facility] Work Phone: 02-03-2023 Cognitive function Awake;Alert;A ppropriate;Fol lows Commands [facility] Work Phone: 05-07-2022 Cognitive function Voice/Name [facility] Work Phone: Clinical Notes 02-03-2023 to 02-04-2023 Note Date & Type Note Facility 02-04-2023 Discharge summary Note Date/Time February 04, 2023 12:51pm [facility] Medical Records Department [address] [place] [address] Discharge Summary 02/04/23 1250 MR#: [id number] Acct: [id number] Name: АЛЕКСАНДР CRUZ Rep #:[id number] : 1970 52 From: Rupa Roberts MD PCP: Dr. Mago Kahn, DO Status:AD [facility] Location: [place] [address] Providers Date of Admission: 02/03/23 Date of Discharge: 02/04/23 Primary Care Physician: Dr. Mago Criss, DO Reason For Visit: RIGHT ARM/HAND AND FACIAL PARASTHESIAS Diagnosis Discharge Diagnosis (1) Paresthesias: Status: Acute Code(s): R20.2 - Paresthesia of skin Medications at Discharge Home Medications omeprazole 20 mg capsule,delayed release 20 mg PO DAILY PRN heartburn 05/07/22 amlodipine 10 mg tablet 10 mg PO DAILY #30 tabs 02/04/23 aspirin 81 mg chewable tablet 81 mg PO DAILY #30 tabs 02/04/23 atorvastatin 40 mg tablet 40 mg PO DAILY #30 tabs 02/04/23 clopidogrel 75 mg tablet (Plavix) 75 mg PO DAILY #21 tabs 02/04/23 Hospital Course Operations None Procedures 2-D Echocardiogram Summary of Care Provided Minutes Spent on Discharge: 55 Hospital Course: Patient is a 52-year-old male with past medical history as outlined was admittedthrough the ED on 02/03/2023 with a complaint of right arm numbness and tingling as well as right facial numbness and tingling. He had been going on for about 4days prior to admission. It waxed and waned but suddenly started persistent forlonger periods. It lasted for several hours on the day of admission. He deniedany focal weakness or speech or vision abnormalities or any difficulty with swallowing. He denied any similar symptoms in his lower extremities. Review ofsystems otherwise negative. NIH stroke scale was 1 in the ED. [facility] telestroke neurology reviewed patient's and did not think that he was a candidate for tPA so he did not receive tPA. He was admitted to rule out a stroke. CT of the brain was negative for any acute intracranial pathology. MRI of the brain also showed no evidence of a stroke. His symptoms resolved during admission and did not recur. He was therefore diagnosed with TIA. Neurology was consulted and agreed with the diagnosis of TIA. Per neurology, to put patient on aspirin and Plavix for 3 weeks and to continue with aspirin monotherapy. Patient was given a loading dose of Plavix 300 mg x 1. He was also placed on atorvastatin 40 mg nightly. His LDL was increased at 126 with total cholesterol of 224. Recommendation was therefore for patient to be on the high intensity statin for target LDL of less than 70. Neurology also recommended a 30-day event monitor and thiswas ordered to evaluate for any evidence of arrhythmia. He had a 2D echo which showed EF of 60% with normal diastolic for age. He had had an echo in August 2022 which also showed negative bubble study. He was discharged home on 02/04/2023 on p.o. aspirin 81 mg daily, p.o. Plavix 75 mg daily for 3 weeks as well as p.o. atorvastatin. He is follow-up with his primary care doctor and follow-up with neurology on outpatient basis as well. Patient seen and examined prior to discharge. is by his bedside. He had no active complaints and had an uneventful night. Review of systems otherwise negative. Labs and vitals reviewed. Home medication reviewed and reconciled. Physical Exam Const alert, oriented x3 and no apparent distress General Appearance: cooperative, comfortable and well developed Orientation / Consciousness: awake Exam Limitations: no limitations HEENT normocephalic, head/scalp atraumatic, hearing grossly normal bilaterally and moist oral mucous membranes Mouth: oral and palatal mucosa normal Eyes PERRL, EOMs intact bilaterally and conjunctivae normal Neck no lymphadenopathy and supple Resp normal respiratory effort, no retractions, no use of accessory muscles and clearto auscultation bilaterally Cardio regular rate, regular rhythm, S1 normal heart sound, S2 normal heart sound and no murmurs GI normal to inspection, nondistended, normoactive bowel sounds, soft to palpation,non-tender and non-distended Extremity normal to inspection, full ROM and no clubbing, cyanosis or edema Skin no rashes or lesions noted, no wounds, skin turgor normal and no jaundice Neuro oriented x3, CN's II-XII intact bilaterally, moves all extremities, no focal motor deficits and no sensory deficits noted Sensorium / Orientation: awake Motor Exam: strength 5/5 throughout Psych affect normal Weight / BMI Weight Weight: 142 lb 10.225 oz Body Mass Index (BMI) 21.7 ABG / Lab / Microbiology Data 02/03/23 13:25 02/04/23 05:37 Laboratory: Laboratory Results - last 24 hr 02/03/23 13:25: WBC 5.4, RBC 4.45 L, Hgb 14.2, Hct 39.2 L, MCV 88.1, MCH 31.9, MCHC 36.2 H, RDW Std Deviation 38.2, RDW Coeff of [place] 11.8, Plt Count 363, MPV 7.8, Immature Gran % (Auto) 0.200, Neut % (Auto) 67.8, Lymph % (Auto) 20.9, [place]% (Auto) 9.3, Eos % (Auto) 1.1, Baso % (Auto) 0.7, Absolute Neuts (auto) 3.6, Absolute Lymphs (auto) 1.12, Nucleated RBC % 0, PT 13.8, INR 1.1, APTT 26.1, Sodium 128 L, Potassium 4.2, Chloride 93 L, Carbon Dioxide 27.0, Anion Gap 8, BUN 5 L, Creatinine 0.90, Estim Creat Clear Calc 96.50, Est GFR (MDRD) Af Amer 113, Est GFR (MDRD) Non-Af 94, BUN/Creatinine Ratio 5.5 L, Glucose 168 H, Calcium 9.0, Troponin I High Sens 4, Triglycerides 133, Cholesterol 224 H, LDL Cholesterol 126, VLDL Cholesterol 27, HDL Cholesterol 71, Ethyl Alcohol < 3.0 02/04/23 05:37: Sodium 132 L, Potassium 3.6, Chloride 99, Carbon Dioxide 28.0, Anion Gap 5, BUN 7, Creatinine 0.70, Estim Creat Clear Calc 114.25, Est GFR (MDRD) Af Amer 153, Est GFR (MDRD) Non-Af 126, BUN/Creatinine Ratio 10.0, Glucose 111 H, Calcium 8.9 Radiography Diagnostic Testing: Radiology Impression Brain CT 02/03/23 13:28 IMPRESSION: Normal unenhanced CT scan of the brain. N.B. : The above Results were Read Back by Jasiel Davenport MD to Gem Guerra and understanding confirmed on 02/03/2023 13:48:17 (ET). Electronically Signed: Jasiel Davenport MD at 13:49 EDT , ADDENDUM: 02/03/23 1352 IMPRESSION: Normal unenhanced CT scan of the brain. N.B. : The above Results were Read Back by Jasiel Davenport MD to Gem Guerra and understanding confirmed on 02/03/2023 13:48:17 (ET). Electronically Signed: Jasiel Davenport MD at 13:49 EDT , Chest X-Ray 02/03/23 13:28 IMPRESSION: Normal x-ray examination of the chest. Electronically Signed: Jasiel Davenport MD at 14:25 EDT , Head/Neck CTA 02/03/23 13:28 IMPRESSION: Mild calcific plaque at the origin of the right internal carotid artery. N.B. : The above Results were Read Back by Jasiel Davenport MD to Dr Handy Tarango DO, and understanding confirmed on 02/03/2023 13:59:40 (ET). Electronically Signed: Jasiel Davenport MD at 14:01 EDT , ADDENDUM: 02/03/23 1407 IMPRESSION: Mild calcific plaque at the origin of the right internal carotid artery. N.B. : The above Results were Read Back by Jasiel Davenport MD to Dr Handy Tarango DO, and understanding confirmed on 02/03/2023 13:59:40 (ET). Electronically Signed: Jasiel Davenprot MD at 14:01 EDT , Brain MRI 02/03/23 15:37 IMPRESSION: Normal unenhanced MRI of the brain. Electronically Signed: Darron Azul MD at 22:10 EDT Reading Location ID and State: [facility] / [place] , Service support , Echocardiogram 02/03/23 16:15 Interpretation Summary The estimated ejection fraction is 60 %. Normal diastology for age. Ordering Physician: Alexei Collins Referring Physician: Mago Kahn M.D. Performed By: Deysi Witt RCS D/C Instructions Discharge Diet: Low fat / Low cholesterol Discharge Activity: Return to Normal Activity Weight Bearing Status: Weight bearing as tolerated Call your doctor if you observe: Fever of 101 or Higher, Shortness of breath, Dizziness, Swelling in the ankles and Chest pain Meaningful Use Info Meaningful Use Diagnoses (Choose all that apply): None applicable Discharge Plan Admission Admit Date/Time: 02/03/23 15:32 Primary Reason for Your Visit: TIA Attending Provider: Rupa Roberts Primary Care Provider: Mago Kahn Consulting Providers: Alexei Collins Instructions Patient Instructions: TIA Dc Discharge Orders/Prescriptions Prescriptions: New aspirin 81 mg tablet,chewable 81 mg PO DAILY Qty: 30 3RF clopidogrel [Plavix] 75 mg tablet 75 mg PO DAILY Qty: 21 0RF atorvastatin 40 mg tablet 40 mg PO DAILY Qty: 30 2RF amlodipine 10 mg tablet 10 mg PO DAILY Qty: 30 2RF Continued omeprazole 20 mg Capsule,Delayed Release(Dr/Ec) 20 mg PO DAILY PRN (Reason: heartburn) Other Ambulatory Orders: 30 Day Event Recorder Preventi (Urgent) Timeframe: 1 Day Facility: [facility] - Location: Cardiovascular Services Ordered By: Dr. Rupa Roberts Referrals / Follow Up: Mago Kahn DO [Primary Care Provider] - Within 1 Week Josh Shirley MD [Non-Staff -Ordering Privileges] - Within 2 Weeks (see to establish care for TIA) Disposition Disposition (needs filled in before D/C Order can be placed): Home, Self Care Charges/Coding Visit Charges Inpatient E&M: 34452 Disch Hosp >30min 02/04/23 1306 <Electronically signed by Rupa Roberts MD> Cosigner Signature (if applicable): CC: Dr. Mago Kahn DO; Dr. Rupa Roberts MD~ Signed ADDENDUM by Dr. Rupa Roberts MD on 02/04/23 at 1306 Visit Charges Inpatient E&M: 29840 Disch Hosp >30min 02/04/23 1306<Electronically signed by Rupa Roberts MD> Cosigner Signature (if applicable): cc: Dr. Mago Kahn DO; Dr. Rupa Roberts MD ~* Signed [facility] Work Phone: [phone] 126-612708-09-2023 Discharge summary Author Rupa [facility] February 04, 2023 12:50pm Note Date/Time February 04, 2023 12: 50pm [facility] Medical Records Department [address] [place] [address] Instructions for Home/Discharge Instructions 02/04/23 1249 MR#: [id number] Acct: [id number] Name: АЛЕКСАНДР CRUZ Rep #:[id number] : 1970 52 From: Rupa Roberts MD PCP: Dr. Mago Kahn DO Status:AD M [facility] Discharge Instructions Diet Discharge Diet: Low fat / Low cholesterol Activity Discharge Activity: Return to Normal Activity Weight Bearing Status: Weight bearing as tolerated Dressing / Incision Call your doctor if you observe: Fever of 101 or Higher, Shortness of breath, Dizziness, Swelling in the ankles and Chest pain Follow Up Care Test Results: Test results from this visit will be discussed in further detail at your follow- up appointment, if applicable. Discharge Plan Admission Admit Date/Time: 02/03/23 15:32 Primary Reason for Your Visit: TIA Attending Provider: Rupa Roberts Primary Care Provider: Mago Kahn Consulting Providers: Alexei Collins Instructions Patient Instructions: TIA Dc Discharge Orders/Prescriptions Prescriptions: New aspirin 81 mg tablet,chewable 81 mg PO DAILY Qty: 30 3RF clopidogrel [Plavix] 75 mg tablet 75 mg PO DAILY Qty: 21 0RF atorvastatin 40 mg tablet 40 mg PO DAILY Qty: 30 2RF amlodipine 10 mg tablet 10 mg PO DAILY Qty: 30 2RF Continued omeprazole 20 mg Capsule,Delayed Release(Dr/Ec) 20 mg PO DAILY PRN (Reason: heartburn) Other Ambulatory Orders: 30 Day Event Recorder Preventi (Urgent) Timeframe: 1 Day Facility: [facility] - Location: Cardiovascular Services Ordered By: Dr. Rupa Roberts Referrals / Follow Up: Mago Kahn DO [Primary Care Provider] - Within 1 Week Josh Shirley MD [Non-Staff -Ordering Privileges] - Within 2 Weeks (see to establish care for TIA) Disposition Disposition (needs filled in before D/C Order can be placed): Home, Self Care 02/04/23 1250<Electronically signed by Rupa Roberts MD>Rupa Roberts MD CC: Dr. Mago Kahn DO; Dr. Alexei Collins DO ~ Signed [facility] Work Phone: 1(813) 341-589408-08-2023 History and physical note Author Alexei Collins [facility] February 03, 2023 3:25pm Note Date/Time February 03, 2023 3:2 5pm [facility] Medical Records Department [address] [place] [id number] H&P Exam - Hospitalist 02/03/23 1516 MR#: [id number] Acct: [id number] Name: АЛЕКСАНДР CRUZ Rep #:[id number] : 1970 52 From: Alexei Collins DO PCP: Dr. Mago Kahn DO Status:AD M CHASE Location: [place] [id number]- [id number] HPI - General General Date of Admission: 02/03/23 Date of Service: 02/03/23 Chief Complaint: Right arm paresthesias, right facial paresthesias HPI Narrative АЛЕКСАНДР CRUZ, is a 52 M who presents to the emergency room at [facility] with a history of several days of right facial numbness and tinglingas well as right arm and right hand numbness and tingling which has waxed and waned. These episodes only lasted for few minutes and then they went away, today the symptoms have lasted for few hours. Patient denied any actual focal weakness, he denies any speech or vision abnormalities, he denies any right lower extremity tingling or numbness. A stroke team was called, patient underwent a CTA of the head and neck as well as a CT of the brain, there were nosignificant abnormalities detected, the patient's NIH score was 1. Discussions were carried out with teleneurology as to whether to give the patient tPA and itwas decided that tPA was not indicated-patient did not feel that he wanted and the emergency room physician did not feel it was warranted and so the decision was made not to give it. Labs were obtained which showed a normal CBC, chemistry profile was abnormal forsodium of 128, chloride was 93, glucose was 168. Patient will be placed into observation status on PCU, MRI of the brain will be obtained, patient will be seen by PT and OT, echocardiogram will be obtained. Patient states that he intakes alcohol on a daily basis, he is vague about the amount of alcohol that he drinks-patient drinks beer-patient states he has neverbeen through alcohol withdrawal or had any symptoms of alcohol withdrawal after refraining from drinking. I talked at length with the patient's who was inthe room at the time my examination. [facility] Medical History (Updated 02/03/23 @ 14:[address] Gem Guerra, ) Alcohol use Former smoker Gastric reflux Hyperlipidemia, unspecified Injury of head and neck Marijuana use Wears glasses Home Medications omeprazole 20 mg capsule,delayed release 20 mg PO DAILY PRN heartburn 05/07/22 [History Last Taken Unknown] Allergy/AdvReac Type Severity Reaction Status Date / Time Penicillins Allergy PT UNSURE Verified 02/03/23 14:30 OF REACTION Family History (Updated 03/20/22 @ 12:59 by Belgica Flower) Mother CVA (cerebral vascular accident) Father Lung cancer Surgical History No history of previous surgery Social History Smoking Status: Former smoker ROS Constitutional Constitutional: Denies anorexia, change in weight, chills, fatigue, fever(s), malaise, night sweats or weakness Eyes Eyes: Denies blurry vision, change in vision, discharge from eye(s) or eye pain Cardiovascular Cardiovascular: Denies chest pain, claudication, dyspnea on exertion, edema, lightheadedness or palpitations Respiratory/Chest Respiratory/Chest: Denies cough, hemoptysis, shortness of breath at rest or shortness of breath with exertion Gastrointestinal Gastrointestinal: Denies abdominal pain, constipation, diarrhea, hematemesis, hematochezia, melena, nausea or vomiting Genitourinary Genitourinary: Denies difficulty urinating, dysuria, hematuria, nocturia, urinary frequency, urinary hesitancy, urinary incontinence or urinary urgency Musculoskeletal Musculoskeletal: Denies back pain, joint pain, joint stiffness, joint swelling, myalgias or neck pain Neurologic Neurologic: Reports numbness, paresthesias and tingling; Denies abnormal gait, abnormal speech, dizziness, focal weakness, headache(s), loss of vision, other visual disturbances or syncope Psychiatric Psychiatric: Denies anxiety, cognitive impairment, depression, homicidal ideation, irritability, mood swings or suicidal ideation Endocrine Endocrinology: Denies change in body appearance, cold intolerance, excessive sweating, heat intolerance, polydipsia or polyuria Hematologic/Lymphatic Hematologic/Lymphatic: Denies none, anemia, easy bleeding, easy bruising or lymphadenopathy Allergic/Immunologic Allergic/Immunologic: Denies rhinitis, urticaria, eczemia or asthma Vital Signs Vital Signs Vital Signs: 02/03/23 13:11 02/03/23 13:17 02/03/23 13:35 Temperature 98.5 F Temperature Source Temporal Pulse Rate 124 H 120 H Respiratory Rate 18 18 Blood Pressure 164/102 H 167/99 H Blood Pressure Mean 122 121 Pulse Ox 98 98 Oxygen Delivery Method Room Air Room Air Room Air 02/03/23 13:58 02/03/23 14:13 Temperature 98.5 F Temperature Source Temporal Pulse Rate 105 H 105 H Respiratory Rate 15 17 Blood Pressure 167/91 H 149/93 H Blood Pressure Mean 116 111 Pulse Ox 98 97 Oxygen Delivery Method Room Air Room Air Weight Weight: 70.261 kg Body Mass Index (BMI) 22.8 Physical Exam Const alert, oriented x3, no apparent distress, average body habitus and healthy appearing General Appearance: cooperative, well kempt and well developed Orientation / Consciousness: awake, oriented to person, oriented to place and oriented to time HEENT normocephalic, head/scalp atraumatic, hearing grossly normal bilaterally and moist oral mucous membranes Eyes PERRL, EOMs intact bilaterally and conjunctivae normal Neck supple, no JVD, thyroid normal and no carotid bruits General: trachea midline Resp normal respiratory effort, no retractions, no use of accessory muscles and clearto auscultation bilaterally Auscultation: Negative for rales, rhonchi or wheezes Cardio regular rate, regular rhythm, S1 normal heart sound, S2 normal heart sound, no murmurs, no rub and no gallops GI normal to inspection, nondistended, normoactive bowel sounds, soft to palpation,non-tender and non-distended Extremity no clubbing, cyanosis or edema Skin no rashes or lesions noted General Skin Exam: no breakdown Neuro oriented x3, CN's II-XII intact bilaterally, moves all extremities, no focal motor deficits and no sensory deficits noted Sensorium / Orientation: awake and alert Speech: speech normal Psych affect normal Results Lab / Micro Data 02/03/23 13:25 02/03/23 13:25 Labs: Laboratory Results - last 24 hr 02/03/23 13:25: WBC 5.4, RBC 4.45 L, Hgb 14.2, Hct 39.2 L, MCV 88.1, MCH 31.9, MCHC 36.2 H, RDW Std Deviation 38.2, RDW Coeff of [place] 11.8, Plt Count 363, MPV 7.8, Immature Gran % (Auto) 0.200, Neut % (Auto) 67.8, Lymph % (Auto) 20.9, [place]% (Auto) 9.3, Eos % (Auto) 1.1, Baso % (Auto) 0.7, Absolute Neuts (auto) 3.6, Absolute Lymphs (auto) 1.12, Nucleated RBC % 0, PT 13.8, INR 1.1, APTT 26.1, Sodium 128 L, Potassium 4.2, Chloride 93 L, Carbon Dioxide 27.0, Anion Gap 8, BUN 5 L, Creatinine 0.90, Estim Creat Clear Calc 96.50, Est GFR (MDRD) Af Amer 113, Est GFR (MDRD) Non-Af 94, BUN/Creatinine Ratio 5.5 L, Glucose 168 H, Calcium 9.0, Troponin I High Sens 4, Ethyl Alcohol < 3.[address] 02/03/23 13:28 IMPRESSION: Normal unenhanced CT scan of the brain. N.B. : The above Results were Read Back by Jasiel Davenport MD to Gem Guerra and understanding confirmed on 02/03/2023 13:48:17 (ET). Electronically Signed: Jasiel Davenport MD at 13:49 EDT , ADDENDUM: 02/03/23 1356 IMPRESSION: Normal unenhanced CT scan of the brain. N.B. : The above Results were Read Back by Jasiel Davenport MD to Gem Guerra and understanding confirmed on 02/03/2023 13:48:17 (ET). Electronically Signed: Jasiel Davenport MD at 13:49 EDT , Chest X-Ray 02/03/23 13:28 IMPRESSION: Normal x-ray examination of the chest. Electronically Signed: Jasiel Davenport MD at 14:25 EDT , Head/Neck CTA 02/03/23 13:28 IMPRESSION: Mild calcific plaque at the origin of the right internal carotid artery. N.B. : The above Results were Read Back by Jasiel Davenport MD to Dr Handy Tarango DO, and understanding confirmed on 02/03/2023 13:59:40 (ET). Electronically Signed: Jasiel Davenport MD at 14:01 EDT , ADDENDUM: 02/03/23 1407 IMPRESSION: Mild calcific plaque at the origin of the right internal carotid artery. N.B. : The above Results were Read Back by Jasiel Davenport MD to Dr Handy Tarango DO, and understanding confirmed on 02/03/2023 13:59:40 (ET). Electronically Signed: Jasiel Davenport MD at 14:01 EDT , Assessment & Plan Assessment/Plan (1) Paresthesias: PLAN: Plan 1. Paresthesias of the right arm and right side of face-etiology unclear, patient states his right arm tingling and numbness for the most part has resolved at this point. Patient was placed in observation status on PCU, he will undergo an MRI, echocardiogram will be performed, patient will have a lipidprofile ordered, he will be seen by PT and OT. #2 hyponatremia-etiology unclear, it is possible it could be from excessive beerdrinking, BMP will be rechecked tomorrow #3 essential hypertension-patient states that he has a history of hypertension but was not placed on any medications, patient's blood pressure will be monitored, I choose at this time not to place the patient on any blood pressure medications #4 Daily alcohol intake-at this point the patient's and the patient are vague about the amount of alcohol the patient drinks but he does drink on a daily basis. Patient does not feel he needs as needed medication for anxiety ornervousness. Total clinical time spent by myself addressing the patient's medical issues, reviewing all of his data, and collaborating with patient's care team: 55 minutes Charges/Coding Visit Charges Inpatient E&M: 80950 Init Hosp L2 02/03/23 1525 <Electronically signed by Alexei Collins DO> Cosigner Signature (if applicable): CC: Dr. Mago Kahn DO; Dr. Alexei Collins DO~ Signed [facility] Work Phone: 1(180) 320-170008-08-2023 History and physical note Author Alexei Collins [facility] February 03, 2023 3:25pm Note Date/Time February 03, 2023 3:2 5pm [facility] Medical Records Department [address] [place] [address] H&P Exam - Hospitalist 02/03/23 1516 MR#: [id number] Acct: [id number] Name: АЛЕКСАНДР CRUZ Rep #:[id number] : 1970 52 From: Alexei Collins DO PCP: Dr. Mago Kahn, DO Status:AD M CHASE Location: [place] [id number]- 1 HPI - General General Date of Admission: 02/03/23 Date of Service: 02/03/23 Chief Complaint: Right arm paresthesias, right facial paresthesias HPI Narrative АЛЕКСАНДР CRUZ, is a 52 M who presents to the emergency room at [facility] with a history of several days of right facial numbness and tinglingas well as right arm and right hand numbness and tingling which has waxed and waned. These episodes only lasted for few minutes and then they went away, today the symptoms have lasted for few hours. Patient denied any actual focal weakness, he denies any speech or vision abnormalities, he denies any right lower extremity tingling or numbness. A stroke team was called, patient underwent a CTA of the head and neck as well as a CT of the brain, there were nosignificant abnormalities detected, the patient's NIH score was 1. Discussions were carried out with teleneurology as to whether to give the patient tPA and itwas decided that tPA was not indicated-patient did not feel that he wanted and the emergency room physician did not feel it was warranted and so the decision was made not to give it. Labs were obtained which showed a normal CBC, chemistry profile was abnormal forsodium of 128, chloride was 93, glucose was 168. Patient will be placed into observation status on PCU, MRI of the brain will be obtained, patient will be seen by PT and OT, echocardiogram will be obtained. Patient states that he intakes alcohol on a daily basis, he is vague about the amount of alcohol that he drinks-patient drinks beer-patient states he has neverbeen through alcohol withdrawal or had any symptoms of alcohol withdrawal after refraining from drinking. I talked at length with the patient's who was inthe room at the time my examination. [facility] Medical History (Updated 02/03/23 @ 14:[address] Gem Guerra, DO) Alcohol use Former smoker Gastric reflux Hyperlipidemia, unspecified Injury of head and neck Marijuana use Wears glasses Home Medications omeprazole 20 mg capsule,delayed release 20 mg PO DAILY PRN heartburn 05/07/22 [History Last Taken Unknown] Allergy/AdvReac Type Severity Reaction Status Date / Time Penicillins Allergy PT UNSURE Verified 02/03/23 14:30 OF REACTION Family History (Updated 03/20/22 @ 12:59 by Belgica Flower) Mother CVA (cerebral vascular accident) Father Lung cancer Surgical History No history of previous surgery Social History Smoking Status: Former smoker ROS Constitutional Constitutional: Denies anorexia, change in weight, chills, fatigue, fever(s), malaise, night sweats or weakness Eyes Eyes: Denies blurry vision, change in vision, discharge from eye(s) or eye pain Cardiovascular Cardiovascular: Denies chest pain, claudication, dyspnea on exertion, edema, lightheadedness or palpitations Respiratory/Chest Respiratory/Chest: Denies cough, hemoptysis, shortness of breath at rest or shortness of breath with exertion Gastrointestinal Gastrointestinal: Denies abdominal pain, constipation, diarrhea, hematemesis, hematochezia, melena, nausea or vomiting Genitourinary Genitourinary: Denies difficulty urinating, dysuria, hematuria, nocturia, urinary frequency, urinary hesitancy, urinary incontinence or urinary urgency Musculoskeletal Musculoskeletal: Denies back pain, joint pain, joint stiffness, joint swelling, myalgias or neck pain Neurologic Neurologic: Reports numbness, paresthesias and tingling; Denies abnormal gait, abnormal speech, dizziness, focal weakness, headache(s), loss of vision, other visual disturbances or syncope Psychiatric Psychiatric: Denies anxiety, cognitive impairment, depression, homicidal ideation, irritability, mood swings or suicidal ideation Endocrine Endocrinology: Denies change in body appearance, cold intolerance, excessive sweating, heat intolerance, polydipsia or polyuria Hematologic/Lymphatic Hematologic/Lymphatic: Denies none, anemia, easy bleeding, easy bruising or lymphadenopathy Allergic/Immunologic Allergic/Immunologic: Denies rhinitis, urticaria, eczemia or asthma Vital Signs Vital Signs Vital Signs: 02/03/23 13:11 02/03/23 13:17 02/03/23 13:35 Temperature 98.5 F Temperature Source Temporal Pulse Rate 124 H 120 H Respiratory Rate 18 18 Blood Pressure 164/102 H 167/99 H Blood Pressure Mean 122 121 Pulse Ox 98 98 Oxygen Delivery Method Room Air Room Air Room Air 02/03/23 13:58 02/03/23 14:13 Temperature 98.5 F Temperature Source Temporal Pulse Rate 105 H 105 H Respiratory Rate 15 17 Blood Pressure 167/91 H 149/93 H Blood Pressure Mean 116 111 Pulse Ox 98 97 Oxygen Delivery Method Room Air Room Air Weight Weight: 70.261 kg Body Mass Index (BMI) 22.8 Physical Exam Const alert, oriented x3, no apparent distress, average body habitus and healthy appearing General Appearance: cooperative, well kempt and well developed Orientation / Consciousness: awake, oriented to person, oriented to place and oriented to time HEENT normocephalic, head/scalp atraumatic, hearing grossly normal bilaterally and moist oral mucous membranes Eyes PERRL, EOMs intact bilaterally and conjunctivae normal Neck supple, no JVD, thyroid normal and no carotid bruits General: trachea midline Resp normal respiratory effort, no retractions, no use of accessory muscles and clearto auscultation bilaterally Auscultation: Negative for rales, rhonchi or wheezes Cardio regular rate, regular rhythm, S1 normal heart sound, S2 normal heart sound, no murmurs, no rub and no gallops GI normal to inspection, nondistended, normoactive bowel sounds, soft to palpation,non-tender and non-distended Extremity no clubbing, cyanosis or edema Skin no rashes or lesions noted General Skin Exam: no breakdown Neuro oriented x3, CN's II-XII intact bilaterally, moves all extremities, no focal motor deficits and no sensory deficits noted Sensorium / Orientation: awake and alert Speech: speech normal Psych affect normal Results Lab / Micro Data 02/03/23 13:25 02/03/23 13:25 Labs: Laboratory Results - last 24 hr 02/03/23 13:25: WBC 5.4, RBC 4.45 L, Hgb 14.2, Hct 39.2 L, MCV 88.1, MCH 31.9, MCHC 36.2 H, RDW Std Deviation 38.2, RDW Coeff of [place] 11.8, Plt Count 363, MPV 7.8, Immature Gran % (Auto) 0.200, Neut % (Auto) 67.8, Lymph % (Auto) 20.9, [place]% (Auto) 9.3, Eos % (Auto) 1.1, Baso % (Auto) 0.7, Absolute Neuts (auto) 3.6, Absolute Lymphs (auto) 1.12, Nucleated RBC % 0, PT 13.8, INR 1.1, APTT 26.1, Sodium 128 L, Potassium 4.2, Chloride 93 L, Carbon Dioxide 27.0, Anion Gap 8, BUN 5 L, Creatinine 0.90, Estim Creat Clear Calc 96.50, Est GFR (MDRD) Af Amer 113, Est GFR (MDRD) Non-Af 94, BUN/Creatinine Ratio 5.5 L, Glucose 168 H, Calcium 9.0, Troponin I High Sens 4, Ethyl Alcohol < 3.[address] 02/03/23 13:28 IMPRESSION: Normal unenhanced CT scan of the brain. N.B. : The above Results were Read Back by Jasiel Davenport MD to Gem Guerra and understanding confirmed on 02/03/2023 13:48:17 (ET). Electronically Signed: Jasiel Davenport MD at 13:49 EDT , ADDENDUM: 02/03/23 1356 IMPRESSION: Normal unenhanced CT scan of the brain. N.B. : The above Results were Read Back by Jasiel Davenport MD to Gem Guerra and understanding confirmed on 02/03/2023 13:48:17 (ET). Electronically Signed: Jasiel Davenport MD at 13:49 EDT , Chest X-Ray 02/03/23 13:28 IMPRESSION: Normal x-ray examination of the chest. Electronically Signed: Jasiel Davenport MD at 14:25 EDT , Head/Neck CTA 02/03/23 13:28 IMPRESSION: Mild calcific plaque at the origin of the right internal carotid artery. N.B. : The above Results were Read Back by Jasiel Davenport MD to Dr Handy Tarango DO, and understanding confirmed on 02/03/2023 13:59:40 (ET). Electronically Signed: Jasiel Davenport MD at 14:01 EDT , ADDENDUM: 02/03/23 1407 IMPRESSION: Mild calcific plaque at the origin of the right internal carotid artery. N.B. : The above Results were Read Back by Jasiel Davenport MD to Dr Handy Tarango DO, and understanding confirmed on 02/03/2023 13:59:40 (ET). Electronically Signed: Jasiel Davenport MD at 14:01 EDT , Assessment & Plan Assessment/Plan (1) Paresthesias: PLAN: Plan 1. Paresthesias of the right arm and right side of face-etiology unclear, patient states his right arm tingling and numbness for the most part has resolved at this point. Patient was placed in observation status on PCU, he will undergo an MRI, echocardiogram will be performed, patient will have a lipidprofile ordered, he will be seen by PT and OT. #2 hyponatremia-etiology unclear, it is possible it could be from excessive beerdrinking, BMP will be rechecked tomorrow #3 essential hypertension-patient states that he has a history of hypertension but was not placed on any medications, patient's blood pressure will be monitored, I choose at this time not to place the patient on any blood pressure medications #4 Daily alcohol intake-at this point the patient's and the patient are vague about the amount of alcohol the patient drinks but he does drink on a daily basis. Patient does not feel he needs as needed medication for anxiety ornervousness. Total clinical time spent by myself addressing the patient's medical issues, reviewing all of his data, and collaborating with patient's care team: 55 minutes Charges/Coding Visit Charges Inpatient E&M: 02704 Init Hosp L2 02/03/23 1525 <Electronically signed by Alexei Collins DO> Cosigner Signature (if applicable): CC: Dr. Mago Kahn DO; Dr. Alexei Collins DO~ Signed [facility] Work Phone: 1(117) 573-961708-08-2023 Discharge summary Author Gem [facility] February 03, 2023 3:00pm Note Date/Time February 03, 2023 1:3 1pm [facility] Medical Records Department [address] [place] [id number] Emergency Department Summary 02/03/23 MR#: [id number] Acct: [id number] Name: АЛЕКСАНДР CRUZ Rep #:[id number] 1 : 1970 52 From: Gem Guerra DO PCP: Dr. Mago Kahn DO Status:AD M CHASE Location: [address] History of Present Illness Chief Complaint: Neuro S/Sx Detail of Chief Complaint: Paresthesias Informant: patient Narrative Narrative: Patient presents to the emergency department with complaint of paresthesia to the right side of the face and right arm that started approximately 10:30 AM today. Patient denies weakness. He does not have involvement of the right lower extremity. He denies visual changes. Patient states that he has had similar episodes for the last 5 days off and on that usually only last a few minutes but this is the longest that it is lasted. Patient does drink alcohol daily. He tells me that he had a severe headache 2 weeks ago that lasted a couple weeks but currently denies headache. Denies significant fall or head injury. He is not on blood thinners. [facility] Medical History (Updated 02/03/23 @ 14:[address] Gem Guerra, DO) Alcohol use Former smoker Gastric reflux Hyperlipidemia, unspecified Injury of head and neck Marijuana use Wears glasses Home Medications omeprazole 20 mg capsule,delayed release 20 mg PO DAILY PRN heartburn 05/07/22 [History Last Taken Unknown] Allergy/AdvReac Type Severity Reaction Status Date / Time Penicillins Allergy PT UNSURE Verified 02/03/23 14:30 OF REACTION Family History (Updated 03/20/22 @ 12:59 by Belgica Flower) Mother CVA (cerebral vascular accident) Father Lung cancer Surgical History No history of previous surgery Social History Smoking Status: Former smoker ROS ROS ED Review of Systems ROS Unobtainable: other Constitutional Constitutional ED: Reports lethargy; Denies chills, fever(s), sweats or weight loss Eyes Eyes: Denies blurry vision, change in vision or diplopia ENT ENT ED: Denies rhinorrhea or sore throat Cardiovascular Cardiovascular: Denies chest pain, orthopnea or racing heartbeat Respiratory/Chest Respiratory/Chest: Denies cough, dyspnea, dyspnea on exertion, orthopnea or sputum Gastrointestinal Gastrointestinal: Denies abdominal pain, diarrhea, nausea or vomiting Genitourinary Genitourinary ED: Denies dysuria, hematuria or urinary frequency Musculoskeletal Musculoskeletal: Denies arthralgias, back pain, myalgias or neck pain Integumentary Denies abscess, Abrasions or rash Neurologic Neurologic: Reports paresthesias; Denies headache(s) or weakness Psychiatric Psychiatric: Denies anxiety, depression or suicidal thoughts Endocrine Endocrinology: Denies polydipsia, polyphagia or polyuria Hematologic/Lymphatic Hematologic/Lymphatic: Denies easy bleeding, easy bruising or lymphadenopathy Allergic/Immunologic Allergic/Immunologic ED: Denies mouth swelling, tongue swelling or urticaria EXAM Physical Exam Const Vital Signs: 02/03/23 13:11 02/03/23 13:17 02/03/23 13:35 Temperature 98.5 F Temperature Source Temporal Pulse Rate 124 H 120 H Respiratory Rate 18 18 Blood Pressure 164/102 H 167/99 H Blood Pressure Mean 122 121 Pulse Ox 98 98 Oxygen Delivery Method Room Air Room Air Room Air 02/03/23 13:58 02/03/23 14:13 Temperature 98.5 F Temperature Source Temporal Pulse Rate 105 H 105 H Respiratory Rate 15 17 Blood Pressure 167/91 H 149/93 H Blood Pressure Mean 116 111 Pulse Ox 98 97 Oxygen Delivery Method Room Air Room Air Positive well nourished and well developed General Appearance ED: well developed and NAD HEENT Reports TM's clear and moist mucous membranes normocephalic and atraumatic; Negative for trauma or tenderness Tympanic Membrane ED: Yes TM's clear Eyes PERRL and EOMs intact bilaterally General Eye ED: Negative for pale conjunctiva or scleral icterus Neck no lymphadenopathy, supple and no JVD General: Negative for tenderness Chest Wall inspection of chest normal and palpation of chest normal Chest: Negative for tenderness Resp normal respiratory effort and clear to auscultation bilaterally Effort and Inspection: Negative for respiratory distress or pain with movement Auscultation: Negative for rhonchi, wheezes or diminished lung sounds Cardio regular rate, regular rhythm, S1 normal heart sound, S2 normal heart sound and no murmurs Peripheral Pulses: pulses 2+ throughout GI normal to inspection, nondistended, normoactive bowel sounds, soft to palpation,non-tender, non-distended and no masses Back/Spine no CVA tenderness and no thoracic nor lumbar tenderness Extremity normal to inspection General Extremety ED: Negative for edema General Extremity: Negative for edema Neuro oriented x3, CN's II-XII intact bilaterally, no sensory deficits noted and gait normal Neuro Narrative: Patient with paresthesias to the right arm and face and an NIH stroke scale of 1. There is no focal weakness. There is no facial droop. Sensorium / Orientation: awake, alert, oriented to person, oriented to place andoriented to time Motor Exam: strength 5/5 throughout and strength abnormal Psych mental status grossly normal Skin no rashes or lesions noted and no wounds MDM MDM MDM Narrative Medical decision making narrative: Patient presents with paresthesias involving the right face and right arm. Concern for possible stroke. Patient's had similar paresthesias over the courseof the last 5 days have been short-lived. He is also recently had severe headache. Concern for stroke versus complex migraine versus intracranial hemorrhage versus electrolyte abnormality or other etiology. Stroke team was called. Patient was evaluated by stroke neurologist and on their evaluation hisparesthesias of his arm had resolved but now was having return of the paresthesias to his face. Recommended discussing with patient giving thrombolytics for stroke. I discussed this with the patient and his the fact that the symptoms are coming and going could possibly be indicative of a stroke however an MRI would be a better test to definitively evaluate. Patient understands risk of bleeding relating to giving thrombolytics 6% potentially that could be fatal. Given that he has waxing and waning of paresthesias patient did not want to proceed with thrombolytics and we shared medical decision making regarding this with his and myself. Patient sodium was noted to be low at 128. Chemistries otherwise were unremarkable. Case will be discussed with hospitalist to evaluate patient for admission as he will require further workup including MRI of the brain. Patient CTA of head and neck essentially showed just mild plaque formation at the origin of the right internal carotid artery. Lab Data Labs: Laboratory Results - last 24 hr 02/03/23 13:25 WBC 5.4 RBC 4.45 L Hgb 14.2 Hct 39.2 L MCV 88.1 MCH 31.9 MCHC 36.2 H RDW Std Deviation 38.2 RDW Coeff of [place] 11.8 Plt Count 363 MPV 7.8 Immature Gran % (Auto) 0.200 Neut % (Auto) 67.8 Lymph % (Auto) 20.9 [place] % (Auto) 9.3 Eos % (Auto) 1.1 Baso % (Auto) 0.7 Absolute Neuts (auto) 3.6 Absolute Lymphs (auto) 1.12 Nucleated RBC % 0 PT 13.8 INR 1.1 APTT 26.1 Sodium 128 L Potassium 4.2 Chloride 93 L Carbon Dioxide 27.0 Anion Gap 8 BUN 5 L Creatinine 0.90 Estim Creat Clear Calc 96.50 Est GFR (MDRD) Af Amer 113 Est GFR (MDRD) Non-Af 94 BUN/Creatinine Ratio 5.5 L Glucose 168 H Calcium 9.0 Troponin I High Sens 4 Ethyl Alcohol < 3.0 Radiography Diagnostic Testing: Clinical Impression(s) from Imaging Studies Brain CT 02/03/23 13:28 IMPRESSION: Normal unenhanced CT scan of the brain. N.B. : The above Results were Read Back by Jasiel Davenport MD to Gem Guerra and understanding confirmed on 02/03/2023 13:48:17 (ET). Electronically Signed: Jasiel Davenport MD at 13:49 EDT , ADDENDUM: 02/03/23 1356 IMPRESSION: Normal unenhanced CT scan of the brain. N.B. : The above Results were Read Back by Jasiel Davenport MD to Gem Guerra and understanding confirmed on 02/03/2023 13:48:17 (ET). Electronically Signed: Jasiel Davenport MD at 13:49 EDT , Chest X-Ray 02/03/23 13:28 IMPRESSION: Normal x-ray examination of the chest. Electronically Signed: Jasiel Davenport MD at 14:25 EDT , Head/Neck CTA 02/03/23 13:28 IMPRESSION: Mild calcific plaque at the origin of the right internal carotid artery. N.B. : The above Results were Read Back by Jasiel Davenport MD to Dr Handy Tarango DO, and understanding confirmed on 02/03/2023 13:59:40 (ET). Electronically Signed: Jasiel Davenport MD at 14:01 EDT , ADDENDUM: 02/03/23 1407 IMPRESSION: Mild calcific plaque at the origin of the right internal carotid artery. N.B. : The above Results were Read Back by Jasiel Davenport MD to Dr Handy Tarango DO, and understanding confirmed on 02/03/2023 13:59:40 (ET). Electronically Signed: Jasiel Davenport MD at 14:01 EDT , 1 view chest x-ray obtained interpreted by myself as no evidence of infiltrate or pneumothorax or acute disease process. Radiology interpretation pending. EKG Initial EKG: Attestation: I personally reviewed and interpreted this EKG as follows: Comments: Sinus rhythm with a rate of 118 bpm with no acute ST segment changes Discharge Plan Dx/Rx/DC Orders Clinical Impression: Paresthesias, Tachycardia, Hypertension, Acute hyponatremia Disposition Disposition: Acute Care Hospital [facility] Discharge Date/Time: 02/03/23 14:40 What to do if you have Problems For any increased pain, shortness of breath, bleeding, nausea or vomiting, chestpain, or any unexpected problems, contact your Primary Care Provider. Call [facility] ([phone]) or report to the closest Emergency Room. Call 911 if necessary. 02/03/23 1500 <Electronically signed by Gem Guerra DO> Cosigner Signature (if applicable): CC: Dr. Mago Kahn DO ~ Signed [facility] Work Phone: [phone] 429-579908-08-2023 Discharge summary Author Gem [facility] February 03, 2023 3:00pm Note Date/Time February 03, 2023 1:3 1pm [facility] Medical Records Department [address] [place] [id number] Emergency Department Summary 02/03/23 MR#: [id number] Acct: [id number] Name: АЛЕКСАНДР CRUZ Rep #:[id number] 1 : 1970 52 From: Gem Guerra DO PCP: Dr. Mago Kahn, Status:AD M CHASE Location: [place] [address] HPI History of Present Illness Chief Complaint: Neuro S/Sx Detail of Chief Complaint: Paresthesias Informant: patient Narrative Narrative: Patient presents to the emergency department with complaint of paresthesia to the right side of the face and right arm that started approximately 10:30 AM today. Patient denies weakness. He does not have involvement of the right lower extremity. He denies visual changes. Patient states that he has had similar episodes for the last 5 days off and on that usually only last a few minutes but this is the longest that it is lasted. Patient does drink alcohol daily. He tells me that he had a severe headache 2 weeks ago that lasted a couple weeks but currently denies headache. Denies significant fall or head injury. He is not on blood thinners. [facility] Medical History (Updated 02/03/23 @ 14:[address] Gem Guerra, DO) Alcohol use Former smoker Gastric reflux Hyperlipidemia, unspecified Injury of head and neck Marijuana use Wears glasses Home Medications omeprazole 20 mg capsule,delayed release 20 mg PO DAILY PRN heartburn 05/07/22 [History Last Taken Unknown] Allergy/AdvReac Type Severity Reaction Status Date / Time Penicillins Allergy PT UNSURE Verified 02/03/23 14:30 OF REACTION Family History (Updated 03/20/22 @ 12:59 by Belgica Flower) Mother CVA (cerebral vascular accident) Father Lung cancer Surgical History No history of previous surgery Social History Smoking Status: Former smoker ROS ROS ED Review of Systems ROS Unobtainable: other Constitutional Constitutional ED: Reports lethargy; Denies chills, fever(s), sweats or weight loss Eyes Eyes: Denies blurry vision, change in vision or diplopia ENT ENT ED: Denies rhinorrhea or sore throat Cardiovascular Cardiovascular: Denies chest pain, orthopnea or racing heartbeat Respiratory/Chest Respiratory/Chest: Denies cough, dyspnea, dyspnea on exertion, orthopnea or sputum Gastrointestinal Gastrointestinal: Denies abdominal pain, diarrhea, nausea or vomiting Genitourinary Genitourinary ED: Denies dysuria, hematuria or urinary frequency Musculoskeletal Musculoskeletal: Denies arthralgias, back pain, myalgias or neck pain Integumentary Denies abscess, Abrasions or rash Neurologic Neurologic: Reports paresthesias; Denies headache(s) or weakness Psychiatric Psychiatric: Denies anxiety, depression or suicidal thoughts Endocrine Endocrinology: Denies polydipsia, polyphagia or polyuria Hematologic/Lymphatic Hematologic/Lymphatic: Denies easy bleeding, easy bruising or lymphadenopathy Allergic/Immunologic Allergic/Immunologic ED: Denies mouth swelling, tongue swelling or urticaria EXAM Physical Exam Const Vital Signs: 02/03/23 13:11 02/03/23 13:17 02/03/23 13:35 Temperature 98.5 F Temperature Source Temporal Pulse Rate 124 H 120 H Respiratory Rate 18 18 Blood Pressure 164/102 H 167/99 H Blood Pressure Mean 122 121 Pulse Ox 98 98 Oxygen Delivery Method Room Air Room Air Room Air 02/03/23 13:58 02/03/23 14:13 Temperature 98.5 F Temperature Source Temporal Pulse Rate 105 H 105 H Respiratory Rate 15 17 Blood Pressure 167/91 H 149/93 H Blood Pressure Mean 116 111 Pulse Ox 98 97 Oxygen Delivery Method Room Air Room Air Positive well nourished and well developed General Appearance ED: well developed and NAD HEENT Reports TM's clear and moist mucous membranes normocephalic and atraumatic; Negative for trauma or tenderness Tympanic Membrane ED: Yes TM's clear Eyes PERRL and EOMs intact bilaterally General Eye ED: Negative for pale conjunctiva or scleral icterus Neck no lymphadenopathy, supple and no JVD General: Negative for tenderness Chest Wall inspection of chest normal and palpation of chest normal Chest: Negative for tenderness Resp normal respiratory effort and clear to auscultation bilaterally Effort and Inspection: Negative for respiratory distress or pain with movement Auscultation: Negative for rhonchi, wheezes or diminished lung sounds Cardio regular rate, regular rhythm, S1 normal heart sound, S2 normal heart sound and no murmurs Peripheral Pulses: pulses 2+ throughout GI normal to inspection, nondistended, normoactive bowel sounds, soft to palpation,non-tender, non-distended and no masses Back/Spine no CVA tenderness and no thoracic nor lumbar tenderness Extremity normal to inspection General Extremety ED: Negative for edema General Extremity: Negative for edema Neuro oriented x3, CN's II-XII intact bilaterally, no sensory deficits noted and gait normal Neuro Narrative: Patient with paresthesias to the right arm and face and an NIH stroke scale of 1. There is no focal weakness. There is no facial droop. Sensorium / Orientation: awake, alert, oriented to person, oriented to place andoriented to time Motor Exam: strength 5/5 throughout and strength abnormal Psych mental status grossly normal Skin no rashes or lesions noted and no wounds MDM MDM MDM Narrative Medical decision making narrative: Patient presents with paresthesias involving the right face and right arm. Concern for possible stroke. Patient's had similar paresthesias over the courseof the last 5 days have been short-lived. He is also recently had severe headache. Concern for stroke versus complex migraine versus intracranial hemorrhage versus electrolyte abnormality or other etiology. Stroke team was called. Patient was evaluated by stroke neurologist and on their evaluation hisparesthesias of his arm had resolved but now was having return of the paresthesias to his face. Recommended discussing with patient giving thrombolytics for stroke. I discussed this with the patient and his the fact that the symptoms are coming and going could possibly be indicative of a stroke however an MRI would be a better test to definitively evaluate. Patient understands risk of bleeding relating to giving thrombolytics 6% potentially that could be fatal. Given that he has waxing and waning of paresthesias patient did not want to proceed with thrombolytics and we shared medical decision making regarding this with his and myself. Patient sodium was noted to be low at 128. Chemistries otherwise were unremarkable. Case will be discussed with hospitalist to evaluate patient for admission as he will require further workup including MRI of the brain. Patient CTA of head and neck essentially showed just mild plaque formation at the origin of the right internal carotid artery. Lab Data Labs: Laboratory Results - last 24 hr 02/03/23 13:25 WBC 5.4 RBC 4.45 L Hgb 14.2 Hct 39.2 L MCV 88.1 MCH 31.9 MCHC 36.2 H RDW Std Deviation 38.2 RDW Coeff of [place] 11.8 Plt Count 363 MPV 7.8 Immature Gran % (Auto) 0.200 Neut % (Auto) 67.8 Lymph % (Auto) 20.9 [place] % (Auto) 9.3 Eos % (Auto) 1.1 Baso % (Auto) 0.7 Absolute Neuts (auto) 3.6 Absolute Lymphs (auto) 1.12 Nucleated RBC % 0 PT 13.8 INR 1.1 APTT 26.1 Sodium 128 L Potassium 4.2 Chloride 93 L Carbon Dioxide 27.0 Anion Gap 8 BUN 5 L Creatinine 0.90 Estim Creat Clear Calc 96.50 Est GFR (MDRD) Af Amer 113 Est GFR (MDRD) Non-Af 94 BUN/Creatinine Ratio 5.5 L Glucose 168 H Calcium 9.0 Troponin I High Sens 4 Ethyl Alcohol < 3.0 Radiography Diagnostic Testing: Clinical Impression(s) from Imaging Studies Brain CT 02/03/23 13:28 IMPRESSION: Normal unenhanced CT scan of the brain. N.B. : The above Results were Read Back by Jasiel Davenport MD to Gem Guerra and understanding confirmed on 02/03/2023 13:48:17 (ET). Electronically Signed: Jasiel Davenport MD at 13:49 EDT , ADDENDUM: 02/03/23 1356 IMPRESSION: Normal unenhanced CT scan of the brain. N.B. : The above Results were Read Back by Jasiel Davenport MD to Gem Guerra and understanding confirmed on 02/03/2023 13:48:17 (ET). Electronically Signed: Jasiel Davenport MD at 13:49 EDT , Chest X-Ray 02/03/23 13:28 IMPRESSION: Normal x-ray examination of the chest. Electronically Signed: Jasiel Davenport MD at 14:25 EDT , Head/Neck CTA 02/03/23 13:28 IMPRESSION: Mild calcific plaque at the origin of the right internal carotid artery. N.B. : The above Results were Read Back by Jasiel Davenport MD to Dr Handy Tarango DO, and understanding confirmed on 02/03/2023 13:59:40 (ET). Electronically Signed: Jasiel Davenport MD at 14:01 EDT , ADDENDUM: 02/03/23 1407 IMPRESSION: Mild calcific plaque at the origin of the right internal carotid artery. N.B. : The above Results were Read Back by Jasiel Davenport MD to Dr Handy Tarango DO, and understanding confirmed on 02/03/2023 13:59:40 (ET). Electronically Signed: Jasiel Davenport MD at 14:01 EDT , 1 view chest x-ray obtained interpreted by myself as no evidence of infiltrate or pneumothorax or acute disease process. Radiology interpretation pending. EKG Initial EKG: Attestation: I personally reviewed and interpreted this EKG as follows: Comments: Sinus rhythm with a rate of 118 bpm with no acute ST segment changes Discharge Plan Dx/Rx/DC Orders Clinical Impression: Paresthesias, Tachycardia, Hypertension, Acute hyponatremia Disposition Disposition: Acute Care Hospital [facility] Discharge Date/Time: 02/03/23 14:40 What to do if you have Problems For any increased pain, shortness of breath, bleeding, nausea or vomiting, chestpain, or any unexpected problems, contact your Primary Care Provider. Call [facility] ([phone]) or report to the closest Emergency Room. Call 911 if necessary. 02/03/23 1500 <Electronically signed by Gem Guerra DO> Cosigner Signature (if applicable): CC: Dr. Mago Kahn DO ~ Signed [facility] Work Phone: Consult note Author Hilda Craig [facility] February 04, 2023 3:06pm Note Date/Time February 04, 2023 3:0 6pm [facility] Medical Records Department [address] [place] [address] Counseling Note - Pharmacy 02/04/23 1505 MR#: [id number] Acct: [id number] Name: АЛЕКСАНДР CRUZ Rep #:[id number] : 1970 52 From: Hilda Craig PCP: Dr. Mago Kahn, DO Status:AD M CHASE Y Location: [place] [address] Pharmacy [facility] has performed discharge medication reconciliation and counseling for this patient. 1. AMLODIPINE 10MG PO DAILY 2. ASPIRIN 81MG PO DAILY 3. ATORVASTATIN 40MG PO QHS 4. CLOPIDOGREL 75MG PO DAILY X 21 DAYS The patient's discharge medication list was reviewed for discrepancies and discrepancies were resolved. The patient was counseled on the following discharge medications and changes in medications for homegoing were reviewed. The Reason for Use, instructions for use, and potential side effects were reviewed for all new medications. The patient's questions regarding all of their medications were answered. The patient was able to verbally demonstrate an understanding of their dischargemedications. Patient counseled by pharmacy helperAnn. Medications at Discharge Home Medications omeprazole 20 mg capsule,delayed release 20 mg PO DAILY PRN heartburn 05/07/22 amlodipine 10 mg tablet 10 mg PO DAILY #30 tabs 02/04/23 aspirin 81 mg chewable tablet 81 mg PO DAILY #30 tabs 02/04/23 atorvastatin 40 mg tablet 40 mg PO DAILY #30 tabs 02/04/23 clopidogrel 75 mg tablet (Plavix) 75 mg PO DAILY #21 tabs 02/04/23 02/04/23 1506 <Electronically signed by Hilda Craig> Date _ Hilda Craig Cosigner Signature (if applicable): Date CC: ~ Signed [facility] Work Phone: Evaluation note* Diagnosis Onset Date Resolution Status Encounter for screening for malignant neoplasm of colo n acute [facility] Work Phone: Evaluation noteNo assessment information available [facility] Work Phone: Evaluation note* Diagnosis Onset Date Resolution Status Acute hyponatremia acute Paresthesias acute Tachycardia acute Hypertension chronic [facility] Work Phone: Evaluation note* Diagnosis Onset Date Resolution Status Hyperlipidemia, unspecified acute Hypersomnia acute Transient ischemic attack ac alba [facility] Work Phone: Instructions* Name Dates Details Patient Instructions Indication:BMI 23.0-23.9, adult Start:23-Jan-2021 Instruction Type:Provider Instructions for Treatment How to Access Health Informa tion Online using Patient Portal and [x+1] [employer] Apps Indication:BMI 23.0-23.9, adult Start:23-Jan-2021 Instruction Type:Patient Education How to access health [...] adult Start:13-May-2017 Instruction Type:Provider Instructions for Treatment [facility] Work Phone: Instructions* Name Dates Details Patient Instructions Indication:Non-smoker Start:24-Jan-2022 Instruction Type:Provider Instructions for Treatment Patient Instructions Indication:Non-smoker Start:24-Jan-2022 Instruction Type:Provider Instructions for Treatment How to Access Health Informa tion Online using Patient Portal and 3rd [employer] Apps Indication:Non-smoker Start:24-Jan-2022 Instruction Type:Patient Education Patient Instructions Indication:BMI 23.0-23.9, adult Start:23-Jan-2021 Instruction Type:Provider Instructions for Treatment How to Access Health Informa tion Online using Patient Portal and [x+1] [employer] Apps Indication:BMI 23.0-23.9, adult Start:23-Jan-2021 Instruction Type:Patient Education How to access health [...] adult Start:13-May-2017 Instruction Type:Provider Instructions for Treatment [facility] Work Phone: Instructions* Name Dates Details Patient Instructions Indication:Non-smoker Start:24-Jan-2022 Instruction Type:Provider Instructions for Treatment Patient Instructions Indication:Non-smoker Start:24-Jan-2022 Instruction Type:Provider Instructions for Treatment How to Access Health Informa tion Online using Patient Portal and [employer]rd [employer] Apps Indication:Non-smoker Start:24-Jan-2022 Instruction Type:Patient Education Patient Instructions Indication:BMI 23.0-23.9, adult Start:23-Jan-2021 Instruction Type:Provider Instructions for Treatment How to Access Health Informa tion Online using Patient Portal and [employer]rd [employer] Apps Indication:BMI 23.0-23.9, adult Start:23-Jan-2021 Instruction Type:Patient Education How to access health [...] adult Start:13-May-2017 Instruction Type:Provider Instructions for Treatment [facility] Work Phone: Instructions* Name Dates Details Patient Instructions Indication:Non-smoker Start:24-Jan-2022 Instruction Type:Provider Instructions for Treatment Patient Instructions Indication:Non-smoker Start:24-Jan-2022 Instruction Type:Provider Instructions for Treatment How to Access Health Informa tion Online using Patient Portal and [employer] Apps Indication:Non-smoker Start:24-Jan-2022 Instruction Type:Patient Education Patient Instructions Indication:BMI 23.0-23.9, adult Start:23-Jan-2021 Instruction Type:Provider Instructions for Treatment How to Access Health Informa tion Online using Patient Portal and [employer]rd [employer] Apps Indication:BMI 23.0-23.9, adult Start:23-Jan-2021 Instruction Type:Patient Education How to access health [...] adult Start:13-May-2017 Instruction Type:Provider Instructions for Treatment [facility] Work Phone: Instructions* Name Dates Details Patient Instructions Indication:Non-smoker Start:24-Jan-2022 Instruction Type:Provider Instructions for Treatment Patient Instructions Indication:Non-smoker Start:24-Jan-2022 Instruction Type:Provider Instructions for Treatment How to Access Health Informa tion Online using Patient Portal and [employer] Apps Indication:Non-smoker Start:24-Jan-2022 Instruction Type:Patient Education Patient Instructions Indication:BMI 23.0-23.9, adult Start:23-Jan-2021 Instruction Type:Provider Instructions for Treatment How to Access Health Informa tion Online using Patient Portal and [x+1] [employer] Indication:BMI 23.0-23.9, adult Start:23-Jan-2021 Instruction Type:Patient Education How to access health [...] adult Start:13-May-2017 Instruction Type:Provider Instructions for Treatment [facility] Work Phone: Instructions* Name Dates Details Patient Instructions Indication:BMI 23.0-23.9, adult Start:04-Sep-2022 Instruction Type:Provider Instructions for Treatment How to Access Health Informa tion Online using Patient Portal and [employer]rd [employer] Apps Indication:BMI 23.0-23.9, adult Start:04-Sep-2022 Instruction Type:Patient Education Patient Instructions Indication:Non-smoker Start:24-Jan-2022 Instruction Type:Provider Instructions for Treatment Patient Instructions Indication:Non-smoker Start:24-Jan-2022 Instruction Type:Provider Instructions for Treatment How to Access Health Informa tion Online using Patient Portal and [employer] Apps Indication:Non-smoker Start:24-Jan-2022 Instruction Type:Patient Education Patient Instructions Indication:BMI 23.0-23.9, adult Start:23-Jan-2021 Instruction Type:Provider Instructions for Treatment How to Access Health Informa tion Online using Patient Portal and [employer] Apps Indication:BMI 23.0-23.9, adult Start:23-Jan-2021 Instruction Type:Patient Education How to access health [...] adult Start:13-May-2017 Instruction Type:Provider Instructions for Treatment [facility] Work Phone: Instructions* Name Dates Details Patient Instructions Indication:BMI 23.0-23.9, adult Start:04-Sep-2022 Instruction Type:Provider Instructions for Treatment How to Access Health Informa tion Online using Patient Portal and [employer] Apps Indication:BMI 23.0-23.9, adult Start:04-Sep-2022 Instruction Type:Patient Education Patient Instructions Indication:Non-smoker Start:24-Jan-2022 Instruction Type:Provider Instructions for Treatment Patient Instructions Indication:Non-smoker Start:24-Jan-2022 Instruction Type:Provider Instructions for Treatment How to Access Health Informa tion Online using Patient Portal and [employer] Apps Indication:Non-smoker Start:24-Jan-2022 Instruction Type:Patient Education Patient Instructions Indication:BMI 23.0-23.9, adult Start:23-Jan-2021 Instruction Type:Provider Instructions for Treatment How to Access Health Informa tion Online using Patient Portal and [employer] Apps Indication:BMI 23.0-23.9, adult Start:23-Jan-2021 Instruction Type:Patient Education How to access health [...] adult Start:13-May-2017 Instruction Type:Provider Instructions for Treatment [facility] Work Phone: Instructions* Name Dates Details Patient Instructions Indication:BMI 23.0-23.9, adult Start:12-Feb-2023 Instruction Type:Provider Instructions for Treatment How to Access Health Informa tion Online using Patient Portal and [employer] Apps Indication:BMI 23.0-23.9, adult Start:12-Feb-2023 Instruction Type:Patient Education Patient Instructions Indication:BMI 23.0-23.9, adult Start:04-Sep-2022 Instruction Type:Provider Instructions for Treatment How to Access Health Informa tion Online using Patient Portal and [employer] Apps Indication:BMI 23.0-23.9, adult Start:04-Sep-2022 Instruction Type:Patient Education Patient Instructions Indication:Non-smoker Start:24-Jan-2022 Instruction Type:Provider Instructions for Treatment Patient Instructions Indication:Non-smoker Start:24-Jan-2022 Instruction Type:Provider Instructions for Treatment How to Access Health Informa tion Online using Patient Portal and [employer] Apps Indication:Non-smoker Start:24-Jan-2022 Instruction Type:Patient Education Patient Instructions Indication:BMI 23.0-23.9, adult Start:23-Jan-2021 Instruction Type:Provider Instructions for Treatment How to Access Health Informa tion Online using Patient Portal and [employer] Apps Indication:BMI 23.0-23.9, adult Start:23-Jan-2021 Instruction Type:Patient Education How to access health [...] adult Start:13-May-2017 Instruction Type:Provider Instructions for Treatment [facility] Work Phone: Instructions* Name Dates Details Patient Instructions Indication:BMI 23.0-23.9, adult Start:12-Feb-2023 Instruction Type:Provider Instructions for Treatment How to Access Health Informa tion Online using Patient Portal and [employer] Apps Indication:BMI 23.0-23.9, adult Start:12-Feb-2023 Instruction Type:Patient Education Patient Instructions Indication:BMI 23.0-23.9, adult Start:04-Sep-2022 Instruction Type:Provider Instructions for Treatment How to Access Health Informa tion Online using Patient Portal and [employer] Apps Indication:BMI 23.0-23.9, adult Start:04-Sep-2022 Instruction Type:Patient Education Patient Instructions Indication:Non-smoker Start:24-Jan-2022 Instruction Type:Provider Instructions for Treatment Patient Instructions Indication:Non-smoker Start:24-Jan-2022 Instruction Type:Provider Instructions for Treatment How to Access Health Informa tion Online using Patient Portal and [employer] Apps Indication:Non-smoker Start:24-Jan-2022 Instruction Type:Patient Education Patient Instructions Indication:BMI 23.0-23.9, adult Start:23-Jan-2021 Instruction Type:Provider Instructions for Treatment How to Access Health Informa tion Online using Patient Portal and [employer] Apps Indication:BMI 23.0-23.9, adult Start:23-Jan-2021 Instruction Type:Patient Education How to access health [...] adult Start:13-May-2017 Instruction Type:Provider Instructions for Treatment [facility] Work Phone: reason for referral (narrative)No reason for [facility]: Family History No Family History Records FoundUnknown Family Member Name Dates Details Father Comments:TTP [...] 4 Status:Active Mother Comments:CVA 42 yo Status:Active Relationship Condition Age at Onset Recorded Date/T sigifredo mother Cerebrovascular accident (CVA) Unknown father Malignant neoplasm of lung Unknown Unknown Family Member Name Dates Details Father [...] Details Current nonsmoker : How to [place] health information online Indication:Current nonsmoker Current nonsmoker : How to a [employer] health information online - Detail Indication:Current nonsmoker [...] Instruction Type:Provider Instructions for Treatment Advance Directives No Advanced Directives Records Found Name Dates Details Immunization Registry [place] - Effective on 04/25/2019. Expiration date unspecified Effective:25-Apr-2019 Name Dates Details Immunization Registry [place] - Effective on 04/25/2019. Expiration date unspecified Effective:25-Apr-2019 Name Dates Details Immunization Registry [place] - Effective on 04/25/2019. Expiration date unspecified Effective:25-Apr-2019 Name Dates Details Immunization Registry [place] - Effective on 04/25/2019. Expiration date unspecified Effective:25-Apr-2019 Name Dates Details Immunization Registry [place] - Effective on 04/25/2019. Expiration date unspecified Effective:25-Apr-2019 Advance Directive Response Recorded Date/ Time Living Will No May 02 1:26pm Power of Short Story Writer No May 02, 2022 1:26pm Name Dates Details Immunization Registry [place] - Effective on 04/25/2019. Expiration date unspecified Effective:25-Apr-2019 Advance Directive Response Recorded Date/ Time Living Will No May 02 2:26pm Power of Short Story Writer No May 02, 2022 2:26pm Advance Directive Response Recorded Date/ Time Living Will No February 03, 2023 1:38pm Power of Short Story Writer No February 03 1:38pm Advance Directive Response Recorded Date/ Time Living Will No February 03, 2023 3:52pm Power of Short Story Writer No February 03 3:52pm Name Dates Details Immunization Registry [place] - Effective on 04/25/2019. Expiration date unspecified Effective:25-Apr-2019 Name Dates Details Immunization Registry [place] - Effective on 04/25/2019. Expiration date unspecified Effective:25-Apr-2019 Advance Directive Response Recorded Date/ Time Living Will No February 03, 2023 2:52pm Power of Short Story Writer No February 03 2:52pm Advance Directive Response Recorded Date/ Time Living Will No February 03, 2023 3:52pm Do you have a Healthcare Power of Short Story Writer? No February 03, 2023 3:52pm Chief Complaint and Reason for Visit Chief Complaint Amb Documentation Reason for Visit Encounter for screen ing for malignant neoplasm of colon Chief Complaint OTHER CHEST PAIN Chief Complaint OTHER CHEST PAIN CHEST PAIN/ANGINAL EQUIV CHEST PAIN/ANGINAL EQUIV Chief Complaint numbness to face and arm Chief Complaint numbness to face and arm numbness to face and arm Chief Complaint numbness to face and arm RIGHT ARM/HAND AND FACIAL PARASTHESIAS RIGHT ARM/HAND AND FACIAL PARASTHESIAS Reason for Visit Acute hyponatremia Paresthesias Tachycardia Hypertension Chief Complaint ESTABLISH CARE/TIA HYPERSOMNIA Reason for Visit Hyperlipidemia, unsp ecified Hypersomnia Transient ischemic attack Chief Complaint ESTABLISH CARE/TIA HYPERSOMNIA EORDER Reason for Visit Hyperlipidemia, unsp ecified Hypersomnia Transient ischemic attack Chief Complaint Admit Date 1 Y FU November 15, 2024 1:51p m Summary Purpose Additional Source Comments (unrecognized sect ion and content) No Status Records FoundNo Status Records Found INFORMATION SOURCE (unrecogn ized section and content) DATE CREATED AUTHOR 09/05/2022 [facility] DATE CREATED AUTHOR AUTHOR'S ORGANIZ ATION [facility] Care Teams (unrecognized sec tion and content) Team Status: Active Member Role Status Dates Dr. Mago Kahn DO Family Provider Active Dr. Mago Kahn , DO Primary Care Provider Active Team Status: Inactive Member Role Status Dates Dr. Mago Kahn , DO Primary Care Pr ovider, Attending Provider, Referring Provider Active Team Status: Active Member Role Status Dates Dr. Mago Kahn DO Primary Care Provider Active Dr. Kenneth Pringle MD Attending Provider Activ e Team Status: Active Member Role Status Dates Dr. Mago Kahn , DO Primary Care Pr ovider, Referring Provider, Other Provider Active Dr. Kenneth Pringle MD Attending Provider Activ e Team Status: Inactive Member Role Status Dates Dr. Mago Kahn DO Primary Care Provider Active Dr. Gem Guerra , DO Emergency Provider Active Team Status: Active Member Role Status Dates Dr. Mago Kahn , DO Primary Care Provider Active Dr. Gem Guerra , DO Emergency Provider Active Dr. Alexei Collins , DO Admit Provider, Attending Provider, Other Provider Active Team Status: Inactive Member Role Status Dates Dr. Mago Kahn , DO Primary Care Provider Active Dr. Gem Guerra , DO Emergency Provider Active Dr. Alexei Collins , DO Attending Provider, Other Pro vider Active Team Status: Active Member Role Status Dates Dr. Mago Kahn , DO Primary Care Provider Active Dr. Gem Guerra , DO Emergency Provider Active Dr. Alexei Collins , DO Admit Provider, Other Provide r Active Dr. Rupa Roberts MD Attending Provider, Other Prov ider Active Team Status: Inactive Member Role Status Dates Dr. Mago Kahn , DO Primary Care Provider Active Dr. Gem Guerra , DO Emergency Provider Active Dr. Alexei Collins , DO Admit Provider, Other Provide r Active Dr. Rupa Roberts MD Attending Provider Active Team Status: Inactive Member Role Status Dates Dr. Mago Kahn , DO Primary Care Provider, Referr ing Provider Active Dr. Josh Shirley MD Attending Provider Active Team Status: Inactive Member Role Status Dates Dr. Mago Kahn , DO Primary Care Provider Active Dr. Josh Shirley MD Attending Provider Active Team Status: Inactive Member Role Status Dates Dr. Mago Kahn , DO Primary Care Provider Active Dr. Josh Shirley MD Attending Provider, Referring Provider Active Team Status: Inactive Member Role Status Dates Dr. Mago Kahn , Primary Care Provider Active Start: November 15, 2024 End: November 15, 2024 Dr. Mago Kahn DO Referring Provider Active Start: November 15, 2024 End: November 15, 2024 Dr. Josh Shirley MD Attending Provider Active Start: November 15, 2024 End: November 15, 2024 Goals (unrecognized section and content) Goals may be documented in a n alternate sectionGoals may be documented in an alternate sectionGoals may be documented in an alternate sectionGoals may be documented in an alternate sectionGoals may be documented in an alternate sectionGoals may be documented in an alternate sectionGoals may be documented in an alternate section FOR RECORDS PERTAINING TO PATIENTS WHO ARE [...] BE BASED ON THE PRIMARY CLINICAL RECORDS. [facility] [employer] [facility]. provides no warranty or guarantee of the accuracy or completeness of information in this document.
== END | disposition home or self-care (01) ==
PROVIDERS: PCP Internal Medicine; Referring Provider Internal Medicine; Visit Provider Internal Medicine
DX: Z12.2 Encounter for screening for malignant neoplasm of respiratory organs (principal); Z72.0 Tobacco use
CPT/HCPCS: 71271